=== PATIENT | female | born 1960 | race Caucasian/White ===

== ENCOUNTER 2019-12-24 10:00 | Outpatient (RCR) | payer MEDICAID, SELFPAY ==
--- NOTE | 2019-12-10 11:16 | HP.PTEVAL ---
Patient's Visit Information AUGUSTUS ARANA is a 59 year old F referred to Physical Therapy by David Ba MD with a diagnosis of vertigo BPPV adn neck pain. Date of Evaluation: 12/10/19 Physical Therapist: Raman Daigle, DPT, OCS, CSCS - Visit Plan Frequency: 2x /Week Duration: 4-6 Weeks Plan: 2x/week as needed for EG to monitor positional needs for vertigo. If needed after vertigo managed, STM, MH, c/s ROM and stretches to L UT and lev scap and ES with MH. Will need to schedule after next visit(positional and ES if needed) - Subjective Findings: Dr. Ba sent her here. She sees him for neuropathy. C/o dizzyness and saw nystagmus in doctor office. Gets dizzy and eyes flutter when lies on R side at night. Has been dizzy for 3 months. Lasts for a number of seconds. Balance is not great as she bumps into doors, does have neuropathy. Not sure why but has been there long time, not worsening. No falls. No cane or walker. 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 Sleep is not great. Neck pain keeps her up and has for a month plus. No history of neck pain regularly. No injury to neck. Hit head on roof a month and half ago or so. Neck pain is L occipital region and into scap. Gets to 8/10 at end of day. Working makes it worse. Hard to lie comfortably. Basic ADLs are getting done. Doctor gave her neck ROM as HEP and MH, slowly improving. No arm numbness or tingling. - Pain neck pain. Pain Intensity (Out of 10): 5 Pain Intensity Range: 2, 8 - Objective c/s rotation L 60 painful L and R 80 with pull on left, ext 45 with pain L. UE AROM WFL. reflexes 2/3 bi and tri. UE strength 4/5 without myotomal abnormalities. Sensation UE WNL to gross light touch. + c/s compression L. - VAT. - B hallpike shirley today and - roll test. Treated with Conrad nieto based on doctor's order. Posture is forward head and protracted elevated scapula B. Tender to touch L UT and lev scap - Balance Scores Functional Gait Assessment Score: 29 % Disability: 3.3400 CATSIB Score (Max score 120 seconds): 120 - Goals Goal 1:: abolish vertigo rollign r in bed Goal Time Frame: 2-4 Weeks Goal 3:: Neck pain 0-1/10 at manageable Goal Time Frame: 4-6 Weeks Goal 4:: I approp HEP to minimize future problems. Goal Time Frame: 4-6 Weeks Goal 5:: Pt sleep without interruption at night. Goal Time Frame: 4-6 Weeks - Rehabilitation Potential Physical Therapy Diagnosis: possible BPPV adn neck pain. Rehabilitation Potential: Good - Anticipated Interventions Patient/Client Instruction: Educate patient on: Condition, Plan of Care For the Purpose of:: To decrease pain, To increase ROM, To increase tolerance to activity/condition/position Therapeutic Exercise to Include: Strength training, Flexibilty training, Passive ROM, Active ROM, Dynamic Lumbar Stabilization Comment: posotional as needed. For the Purpose of:: To decrease pain, To improve muscle performance and motor function, To increase tolerance to activity/condition/position, To improve ability of physical actions for home/community/work/leisure Manual Therapy Techniques to Include: Mobilization, Passive ROM, Soft tissue mobilization For the Purpose of:: To decrease pain, To increase ROM TENS: Yes Thermo therapy (hot pack): Yes For the Purpose of:: To decrease pain Thank you for the opportunity to evaluate your patient. For Medicare and Medicare HMO plans, please review the plan of care and approve it. It will need to be FAXED BACK to us at [phone] for Medicare purposes. For Medicare only, by signing this I certify the plan of care. Please let me know if there are questions or concerns regarding this plan of care. Physician Signature: Date:
--- NOTE | 2019-12-24 09:59 | HP.PTDCSUM ---
HP - PT D/C Summary It has been my pleasure to treat AUGUSTUS ARANA under orders from David Ba MD, for the diagnosis of vertigo BPPV adn neck pain for a total of 3 visit(s). Discharge Date: 12/24/19 Please see the following information for a summary of their discharge status. - Subjective Subjective: Been really good. No dizzyness. Activities normal. No neck pain lately in the past week. Exercises are going well. Sees doctor office in December for neuropathic pain. - Pain neck pain. Pain Intensity (Out of 10): 5 - Overall Improvement % Improvement: 100 - Objective Objective/Function: No vertigo today. Neck ROM is full at 85 ext adn 85 B rotation s without pain or hesitation. UE AROM and strengtha re full. OVERALL VERY QUICK AND COMPLETE PROGRESS. - Goals Goal 1:: abolish vertigo rollign r in bed Goal Progress: Goal Met Goal 3:: Neck pain 0-1/10 at manageable Goal Progress: Goal Met Goal 4:: I approp HEP to minimize future problems. Goal Progress: Goal Met Goal 5:: Pt sleep without interruption at night. Goal Progress: Goal Met - Plan Plan: d/c, pt to continue neck exercises at home. - D/C Information If there are questions or concerns regarding this patient's physical therapy, please feel free to call me at [phone]. Thank you for the referral of this patient. Sincerely, Raman Daigle, DPT, OCS, CSCS
== END 2019-12-24 10:14 | disposition home or self-care (01) ==
LOC: PT 10:00
PROVIDERS: PCP Preventive Medicine Occupational Medicine; Referring Provider Psychiatry & Neurology Neurology; Visit Provider Psychiatry & Neurology Neurology
DX: H81.11 Benign paroxysmal vertigo, right ear (principal); M54.2 Cervicalgia
CPT/HCPCS: 97162; 97164; 97530

== ENCOUNTER → 2025-07-01 | Outpatient (CLI) | payer MEDICAID, SELFPAY ==
[2025-07-01 13:06] LABS: Hematocrit 44.9 % (37-47); Hemoglobin 14.8 g/dL (12.0-15.0); Immature Granulocytes Count 0.010 X10^3/uL (0.0-0.0); Mean Corp Hgb Conc 33.0 g/dL (32-36); Mean Corpuscular Volume 90.0 fL (81-99); Mean Platelet Vol. 11.1 fl (6.2-12.0); NRBC Flagged by Analyzer 0 % (0-5); Platelet Count 264 K/mm3 (150-450); RBC Distribution Width CV 13.3 % (11.6-14.6); RBC Distribution Width SD 43.9 fl (35.1-43.9); Red Blood Count 4.99 M/mm3 (4.2-5.4); White Blood Count 6.1 K/mm3 (4.4-11.0)
[2025-07-04 15:08] LABS: Ash, White <0.10 kU/L (Class 0); Black Walnut <0.10 kU/L (Class 0); Cat Hair / Dander,Stand <0.10 kU/L (Class 0); Cedar, Mountain <0.10 kU/L (Class 0); Cockroach, American <0.10 kU/L (Class 0); Dog Epithelia <0.10 kU/L (Class 0); Elm, American White <0.10 kU/L (Class 0); Mulberry, White <0.10 kU/L (Class 0); Oak, White <0.10 kU/L (Class 0); Pigweed, Rough <0.10 kU/L (Class 0); Ragweed, Short/Common <0.10 kU/L (Class 0); Sycamore, American <0.10 kU/L (Class 0)
[2025-07-05 15:07] LABS: Aspirgillus flavus Negative (Neg:<1:1); Aspirgillus fumigatus Negative (Neg:<1:1); Aspirgillus niger Negative (Neg:<1:1); Cytoplasmic Ab (C-ANCA) <1:20 titer (Neg:<1:20); Perinuclear Ab (P-ANCA) <1:20 titer (Neg:<1:20)
== END | disposition home or self-care (01) ==
LOC: LAB 11:59
PROVIDERS: Referring Provider Internal Medicine Critical Care Medicine; Visit Provider Internal Medicine Critical Care Medicine
DX: E66.9 Obesity, unspecified (principal); F17.210 Nicotine dependence, cigarettes, uncomplicated; G47.33 Obstructive sleep apnea (adult) (pediatric); J45.909 Unspecified asthma, uncomplicated
CPT/HCPCS: 36415; 82785; 85025; 86003; 86037; 86606

== ENCOUNTER → 2025-07-07 | Outpatient (CLI) | payer MEDICAID, SELFPAY ==
[2025-07-07 11:47] VITALS: PULSE 110; PULSE 113; PULSE 114; PULSE 117; PULSE 132; PULSE 138; PULSE 142; PULSE 150; O2SAT 94; O2SAT 95; O2SAT 96; O2SAT 97
--- NOTE | 2025-07-09 08:20 | PCM.PSN.6M ---
PSN 6 Minute Walk Test 6 Minute Walk Test 6 Minute Walk Test: 6 Minute Walk Test PSN:6-Minute Walk Test Start: 07/07/25 11:39 Freq: Status: Active Protocol: RESP.6MINW Document 07/07/25 11:47 OSWALDO (Rec: 07/07/25 11:55 [email or web address] [id number]) 6 Minute Walk Test Date Performed 07/07/25 Time Performed 11:15 Height 5 ft 6 in Weight: 226 lb Weight in Pounds [address]: Jake Grimes Assistive device None used: Pre-test Oxygen Delivery Room Air Method Pulse Ox (%) 96 Pulse Rate (60-100 110 H beats/min) Dyspnea Alethea Scale ( 0 0-10) Exertion Alethea Scale 6 (6-20) 1st minute Oxygen Delivery Room Air Method Pulse Ox (%) 94 Pulse Rate (60-100 114 H beats/min) 2nd minute Oxygen Delivery Room Air Method Pulse Ox (%) 94 Pulse Rate (60-100 117 H beats/min) 3rd minute Oxygen Delivery Room Air Method Pulse Ox (%) 94 Pulse Rate (60-100 132 H beats/min) 4th minute Oxygen Delivery Room Air Method Pulse Ox (%) 94 Pulse Rate (60-100 138 H beats/min) 5th minute Oxygen Delivery Room Air Method Pulse Ox (%) 95 Pulse Rate (60-100 142 H beats/min) 6th minute Oxygen Delivery Room Air Method Pulse Ox (%) 95 Pulse Rate (60-100 150 H beats/min) Dyspnea Alethea Scale ( 2 0-10) Exertion Alethea Scale 12 (6-20) Post-test Oxygen Delivery Room Air Method Pulse Ox (%) 97 Pulse Rate (60-100 113 H beats/min) Full Laps Walked 19 Partial Lap, Number 0 of Tiles Walked Total Distance 1121 Walked (ft) Interpretation Interpretation: The patient ambulated 1121 feet over the course of 6 minutes beginning on room air without assistive devices. Pretesting oxygen saturation was noted to be 96% on room air. With ambulation, the fady oxygen saturation was noted to be 94%. There was no significant exertional oxygen desaturation. Recommendations Recommendations: There is no indication for the use of supplemental oxygen at this time.
== END | disposition home or self-care (01) ==
LOC: PSN 11:02
PROVIDERS: Referring Provider Internal Medicine Critical Care Medicine; Visit Provider Internal Medicine Critical Care Medicine
DX: E66.9 Obesity, unspecified (principal); G47.33 Obstructive sleep apnea (adult) (pediatric); J45.909 Unspecified asthma, uncomplicated; F17.210 Nicotine dependence, cigarettes, uncomplicated
CPT/HCPCS: 94618

== ENCOUNTER → 2025-07-10 | Outpatient (CLI) | payer MEDICAID, SELFPAY | END | disposition home or self-care (01) | LOC: PSN 10:13 | PROVIDERS: Referring Provider Internal Medicine Critical Care Medicine; Visit Provider Internal Medicine Critical Care Medicine | DX: J45.909 Unspecified asthma, uncomplicated (principal); G47.33 Obstructive sleep apnea (adult) (pediatric); E66.9 Obesity, unspecified; F17.210 Nicotine dependence, cigarettes, uncomplicated | CPT/HCPCS: 94060; 94726; 94729 ==

== ENCOUNTER 2025-07-20 10:17 | Outpatient (CLI) | payer MEDICAID, SELFPAY ==
[2025-07-20 13:29] LABS: AST(SGOT) 19 U/L (<=31); Alanine Aminotransfer ALT/SGPT 28 U/L (<=34); Albumin, Serum 4.7 g/dL (3.4-4.8); Alkaline Phosphatase 94 U/L (35-104); Anion Gap 11 (5-15); BUN 13 mg/dL (4-19); BUN/Creat Ratio 18.1 RATIO (10-20); Calcium,Total 10.4 mg/dL (7.6-11.0); Carbon Dioxide 24.8 mmol/L (21.0-32.0); Chloride 103 mmol/L (98-108); Ferritin 77 ng/mL (22-378); Globulin 2.7 g/dL (2.2-4.2); Glucose 105 mg/dL (70-99); Potassium 4.8 mmol/L (3.3-5.1); Vitamin B12 1291 pg/mL (180-914)
[2025-07-20 14:25] LABS: Iron 93 ug/dL (50-170); Magnesium 2.5 mg/dL (1.5-2.2)
[2025-07-22 14:09] LABS: ANTINUCLEAR ANTIBODIES DIRECT Negative (Negative); Vitamin D 1,25-Dihydroxy 51.0 pg/mL (24.8-81.5)
== END 2025-07-20 23:59 | disposition home or self-care (01) ==
LOC: MTLAB 10:18
PROVIDERS: Referring Provider Psychiatry & Neurology Neurology; Visit Provider Psychiatry & Neurology Neurology
DX: G62.9 Polyneuropathy, unspecified (principal); G25.81 Restless legs syndrome; M19.90 Unspecified osteoarthritis, unspecified site
CPT/HCPCS: 86225; 36415; 80053; 82607; 82652; 82728; 82747; 83540; 83735; 83883; 84207; 84425; 84443; 85014; 86038; 86431

== ENCOUNTER → 2025-07-29 | Outpatient (CLI) | payer MEDICAID, SELFPAY ==
--- NOTE | 2025-07-29 08:26 | RAD_ITS ---
PROCEDURE: HIP, UNI W/ PELVIS 2-3 VIEWS 07/29/2025 REASON FOR EXAM: RIGHT HIP PAIN TECHNIQUE: Procedure Code: RADHP Modality: DX Procedure: HIP, UNI W/ PELVIS 2-3 VIEWS Laterality: Right. COMPARISON: None. RAD/HIP, UNI W/ Pelvis 2-3 Views IMPRESSION: Degenerative changes are seen of the visualized lower lumbar spine. Limited imaging of the left hip shows no significant abnormality. The right hip joint demonstrates no significant arthritic process or joint spac e narrowing. No evidence of femoral head osteonecrosis. No fracture or dislocation is seen. Reading Location: [id number]
--- OUTSIDE RECORDS SUMMARY | 2025-07-30 22:32 | XMS RPT_ITS | CCD ---
Author Organization [facility] [place] [facility] Care Team Providers Care Booking Manager Name Role Phone Nia Montoya Unavailable Unavailable Nia Montoya Unavailable Unavailable KYLE LOGAN DO Primary Care Physician [phone] Unavailable Primary Care Provider UnavailKyle Caba DO Primary Care Provider [phone] KYLE LOGAN DO Primary Care Physician [phone] Kyle Logan DO Primary Care Provider [phone] TONJA HANCOCK MD Attending Unavail able KYLE LOGAN DO Primary Care Unavailable KYLE LOGAN DO Attending Unavailable KYLE LOGAN DO Primary Care Unavailable GREGORY LEIGH Attending UnavailKYLE Caba DO Primary Care Unavailable Kyle Logan DO Primary Care Provider SELF Referring Unavailable KYLE LOGAN Primary Care Unavailable HENRY STEVE Attending Unavailable SELF Referring Unavailable KYLE LOGAN Primary Care Unavailable THADDEUS BURCIAGA Attending Unavailable KYLE LOGAN Primary Care Unavailable HONEY HUDSON Attending Unavailable STEFAN MALIK DO Primary Care Physician STEFAN MALIK DO Primary Care Unavailable EDUARDO DOE PA-C Attending Unavailable KYLE LOGAN DO Attending Unavailable KYLE LOGAN DO Primary Care Unavailable Dr. Jake Grimes DO Attending Provider [phone] Dr. Stefan Malik DO Primary Care Provider [phone] Dr. Stefan Malik DO Referring Provider [phone] Dr. Jake Grimes DO Referring Provider [phone] Dr. Jake Grimes DO Other Provider [phone] PORSCHE MOSS, JURGEN Hoff Attending Induva john MALIK DO, STEFAN E Primary Care Unavailable MALIK DO, STEFAN E Primary Care Unavailable PORSCHE MOSS, JURGEN Hoff Attending Unava john RESENDEZ MD, DR MOULTON Attending Unavailab le DOREEN DO, KYLE Primary Care Unavailable MALIK DO, STEFAN E Attending Unavailable MALIK DO, STEFAN E Primary Care Unavailable DOREEN DO, KYLE Primary Care Unavailable DOREEN DO, KYLE Attending Unavailable DOREEN DO, KYLE Primary Care Unavailable ROMAR DO, DR VELAZQUEZ Attending Unavailable MALIK DO, STEFAN E Primary Care Unavailable MALIK DO, STEFAN E Attending Unavailable MALIK DO, STEFAN E Primary Care Unavailable DK ZAVALA Attending Unavailab le MALIK DO, STEFAN E Primary Care Unavailable MALIK DO, STEFAN E Attending Unavailable Malik, Stefan Primary Care Unavailable Brown, Jake Referring Unavailable Brown, Jake Attending Unavailable Doreen, Kyle Referring Unavailable BaddoSelvin ordoñez Attending Unavailable Malik, Stefan Primary Care Unavailable Malik, Stefan Primary Care Unavailable Malik, Stefan Referring Unavailable Brown, Jake Attending Unavailable Brown, Jake Consulting Unavailable Brown, Jake Attending Unavailable Brown, Jake Referring Unavailable Malik, Stefan Primary Care Unavailable Brown, Jake Attending Unavailable Brown, Jake Referring Unavailable Malik, Stefan Primary Care Unavailable Malik, Stefan Primary Care Unavailable Baddour, Selvin Attending Unavailable Baddour, Selvin Referring Unavailable Malik, Stefan Primary Care Unavailable Gaviota Selvin Attending Unavailable Baddour, Selvin Referring Unavailable Brown, Jake Attending Unavailable Brown, Jake Referring Unavailable Malik, Stefan Primary Care Unavailable Allergies Allergy Classification Reported Allergen(s) Allergy Type Date of Onset Reaction(s) Facility (20 sources) caffeine; Translations: [caffeine] drug allergy 7 Tachycardia (finding), Intolerance [facility] Work Phone: (2 sources) codeine drug allergy 7 [facility] Work Phone: (2 sources) penicillin v drug allergy 7 [facility] Work Phone: (2 sources) [place] drug allergy 7 [facility] Work Phone: (20 sources) Codeine; Translations: [codeine] Drug Allergy 2 Difficulty breathing (finding), Eruption of skin (disorder), Nausea and vomiting (disorder), Cough, GI Upset, Rash [facility] Comment on above: Nausea, Rash abd pain (17 sources) Penicillins; Translations: [penicillins] Drug allergy Difficulty breathing (finding), Weal (disorder) [facility] Comment on above: Diarrhea, Rash (20 sources) Procaine; Translations: [procaine] Drug Allergy 2 Anxiety (finding), Mental Status Change [facility] Comment on above: Shakiness, severe an xiety, nausea Heart racing and anx iety (20 sources) tiotropium; Translations: [tiotropium] Drug Allergy 2 GI Upset [facility] Comment on above: became very ill (5 sources) Penicillins; Translations: [PENICILLINS] Drug Allergy 2 Shortness of Breath, Hives [facility] (14 sources) Contrast media; Translations: [iodinated radiocontrast agents] Drug allergy Nausea (finding), Tremor (finding), Difficulty breathing (finding) [facility] (3 sources) Iodinated Contrast Media; Translations: [IODINATED CONTRAST MEDIA] Drug Allergy 4 Other: See Comments [facility] (3 sources) Penicillins; Translations: [penicillins] Drug allergy Difficulty breathing (finding), Weal (disorder) [place] Comment on above: Diarrhea, Rash (2 sources) Iodine Drug Allergy 5 Other [facility] Comment on above: shaking & heart raci ng (2 sources) Penicillins Allergy to substance 5 Anaphylaxis [facility] (2 sources) Gadolinium-MRI Contrast Medium Allergy to substance 5 Other [facility] Comment on above: Shaking and heart ra steve (1 source) Penicillin; Translations: [penicillins] Drug Allergy Difficulty breathing (finding), Weal (disorder) [place] Comment on above: Diarrhea, Rash (1 source) Caffeine Drug Allergy 5 [facility] (1 source) Codeine Drug Allergy 5 [facility] (1 source) Iodine Drug Allergy 5 [facility] (1 source) Penicillins Drug allergy (disorder) 5 [facility] (1 source) Procaine Drug Allergy 5 [facility] (1 source) tiotropium Drug Allergy 5 [facility] (1 source) Gadolinium-MRI Contrast Medium Drug allergy (disorder) 5 [facility] Medications Current Medications Medication Drug Class(es) Dates Sig (Normalized) Sig (Original) acyclovir 50 mg/ml topical cream (16 sources) Herpesvirus Nucleoside Analog DNA Polymerase Inhibitor, Herpes Simplex Virus Nucleoside Analog DNA Polymerase Inhibitor, Herpes Zoster Virus Nucleoside Analog DNA Polymerase Inhibitor Start: 07-01-2025 Acyclovir (Zovirax) 5 % cream Active 1 NMA TOPICAL ONCE July 01, 2025 12:00am Start: 02-11-2025 apply 1 dose topically once Zo virax 5% topical cream Apply 1 sabrina, Topical, 5x/Day, # 5 gram(s), 3 Refill(s), Pharmacy: [facility], Cream, 167, cm, 02/11/25 10:22:00 EDT, Height, 108.3, kg, 02/11/25 10:22:00 EDT, Dosing Weight Start Date: 02/11/25 Status: Ordered Medication Dispense Status: Completed Quantity: 5.0 Unit: g Total Allowed Fills: 4 Fills Dispensed: 0 Indications: Herpesviral vesicular dermatitis; Start: 01-19-2023 Zovirax 5% top ical cream Apply 1 sabrina, Topical, 5x/Day, # 5 gram(s), 3 Refill(s), Pharmacy: [facility], Cream, 170, cm, 01/02/23 16:22:00 EST, Height, 88.5, kg, 01/02/23 16:22:00 EST, Dosing Weight Start Date: 01/19/23 Status: Ordered Quantity: 5.0 Unit: g Repeat number: 4 Start: 04-27-2022 Zovirax 5% top ical cream Apply 1 sabrina, Topical, 5x/Day, # 5 gram(s), 0 Refill(s), [id number] Cream, 168, cm, 02/08/22 11:02:00 EDT, Height, 79.8 Start Date: 04/27/22 Status: Ordered Advair Diskus 100 mcg-50 mcg/inh inhalation powder (4 sources) Start: 05-27-2025 take 1 dose by mouth twice daily Advair Diskus 100 mcg-50 mcg/inh inhalation powder Dose = 1 puff(s), Inhalation, BID, rinse mouth and throat after use, # 60 EA, 1 Refill(s), Pharmacy: [facility], 168.5, cm, 05/27/25 13:54:00 EDT, Height, kg, 05/27/25 13:54:00 EDT, Dosing Weight Start Date: 05/27/25 Status: Ordered Medication Dispense Status: Completed Quantity: 60.0 Unit: EA Total Allowed Fills: 2 Fills Dispensed: 0 Start: 04-24-2025 take 1 dose by mouth twice daily Advair Diskus 100 mcg-50 mcg/inh inhalation powder Dose = 1 puff(s), Inhalation, BID, rinse mouth and throat after use, # 60 EA, 1 Refill(s), Pharmacy: [facility], 167, cm, 04/24/25 13:58:00 EDT, Height, kg, 04/24/25 13:58:00 EDT, Dosing Weight Start Date: 04/24/25 Status: Ordered Quantity: 60.0 Unit: EA Repeat number: 2 [id number] 200 actuat albuterol 0.09 mg/actuat metered dose inhaler (13 sources) beta2-Adrenergic Agonist Start: 07-01-2025 Albut dalila Sulfate (Ventolin Hfa) 90 mcg/actuation HFA aerosol inhaler Active 2 NMA INHALATION EVERY 6 HOURS as needed July 01, 2025 12:00am Start: 06-29-2021 take 1 puff(s) by in halation every four hours as needed for wheezing Ventolin HFA MDI (90 mcg/inh) inhalation aerosol 1 puff(s), Inhalation, q4h, PRN as needed for wheezing, # 8 gram(s), 0 Refill(s) Start Date: 06/29/21 Status: Ordered Start: 07-25-2017 VENTOLIN HFA 1 08 (90 Base) MCG/ACT AERS Inhale 1 puff every 4 hours ALBUTEROL SULFATE [id number] Ruth Lee Start: 07-25-2017 VENTOLIN HFA 1 08 (90 Base) MCG/ACT AERS Inhale 1 puff every 4 hours ALBUTEROL SULFATE [id number] Ruth Lee albuterol HFA (P ROVENTIL HFA, VENTOLIN HFA) 90 mcg/actuation inhaler albuterol sulfate HFA 90 mcg/actuation aerosol inhaler Active albuterol HFA (P ROVENTIL HFA, VENTOLIN HFA) 90 mcg/actuation inhaler albuterol sulfate HFA 90 mcg/actuation aerosol inhaler 0 Active Comment on above: albuterol sulfate HF A 90 mcg/actuation aerosol inhaler albuterol 0.833 mg/ml / ipratropium bromide 0.167 mg/ml inhalation solution (8 sources) Anticholinergic, beta2-Adrenergic Agonist Start: 07-01-2025 Ipratropium-Albuterol 0.5 mg-3 mg(2.5 mg base)/3 mL solution for nebulization Active 3 mL INHALATION EVERY 6-8 HOURS as needed July 01, 2025 12:00am Start: 05-27-2025 take 1 dose by inhal ation four times daily as needed for wheezing albuterol-ipratropium 2.5 mg-0.5 mg/3 mL inhalation solution Dose = 3 mL, Inhalation, QID, PRN as needed for shortness of breath or wheezing, # 120 EA, 0 Refill(s), Pharmacy: [facility], Community acquired pneumonia Moderate persistent asthma, 168.5, cm, 05/27/25 13:54:00 EDT, Height, kg, 05/27/25 13:54:00 EDT, Dosing Weight Start Date: 05/27/25 Status: Ordered Medication Dispense Status: Completed Quantity: 120.0 Unit: EA Total Allowed Fills: 1 Fills Dispensed: 0 Indications: Pneumonia, unspecified organism; Moderate persistent asthma, uncomplicated; Start: 03-16-2025 take 1 dose by inhal ation four times daily as needed for wheezing albuterol-ipratropium 2.5 mg-0.5 mg/3 mL inhalation solution Dose = 3 mL, Inhalation, QID, PRN as needed for shortness of breath or wheezing, # 120 EA, 0 Refill(s), Pharmacy: [facility], Community acquired pneumonia Moderate persistent asthma, 169.1, cm, 03/16/25 10:25:00 EDT, Height, kg, 03/16/25 10:25:00 EDT, Dosing Weight Start Date: 03/16/25 Status: Ordered Quantity: 120.0 Unit: EA Repeat number: 1 Indications: Pneumonia, unspecified organism; Moderate persistent asthma, uncomplicated; albuterol MDI (90 mcg/inh) CFC free inhalation aerosol (19 sources) Start: 05-27-2025 take 1 puff(s) by inhalation every four hours as needed for wheezing albuterol MDI (90 mcg/inh) CFC free inhalation aerosol 1 puff(s), Inhalation, q4h, PRN as needed for wheezing, # 8.5 gram(s), 5 Refill(s), Pharmacy: [facility], Asthma, 168.5, cm, 05/27/25 13:54:00 EDT, Height, kg, 05/27/25 13:54:00 EDT, Dosing Weight Start Date: 05/27/25 Status: Ordered Medication Dispense Status: Completed Quantity: 8.5 Unit: g Total Allowed Fills: 6 Fills Dispensed: 0 Indications: Moderate persistent asthma, uncomplicated; Start: 02-11-2025 take 1 puff(s) by in halation every four hours as needed for wheezing albuterol MDI (90 mcg/inh) CFC free inhalation aerosol 1 puff(s), Inhalation, q4h, PRN as needed for wheezing, # 8.5 gram(s), 5 Refill(s), Pharmacy: [facility], Asthma, 167, cm, 02/11/25 10:22:00 EDT, Height, kg, 02/11/25 10:22:00 EDT, Dosing Weight Start Date: 02/11/25 Status: Ordered Quantity: 8.5 Unit: g Repeat number: 6 Indications: Moderate persistent asthma, uncomplicated; Start: 08-13-2024 take 1 puff(s) by in halation every four hours as needed for wheezing albuterol MDI (90 mcg/inh) CFC free inhalation aerosol 1 puff(s), Inhalation, q4h, PRN as needed for wheezing, # 8.5 gram(s), 5 Refill(s), Pharmacy: [facility], 168.6, cm, 08/13/24 9:12:00 EDT, Height, kg, 08/13/24 9:12:00 EDT, Dosing Weight Start Date: 08/13/24 Status: Ordered Quantity: 8.5 Unit: g Repeat number: 6 Start: 04-16-2024 take 1 puff(s) by in halation every four hours as needed for wheezing albuterol MDI (90 mcg/inh) CFC free inhalation aerosol 1 puff(s), Inhalation, q4h, PRN as needed for wheezing, # 8.5 gram(s), 5 Refill(s), Pharmacy: [facility], 168, cm, 02/13/24 10:57:00 EDT, Height, kg, 02/13/24 10:57:00 EDT, Dosing Weight Start Date: 04/16/24 Status: Ordered Start: 02-13-2024 take 1 puff(s) by in halation every four hours as needed for wheezing albuterol MDI (90 mcg/inh) CFC free inhalation aerosol 1 puff(s), Inhalation, q4h, PRN as needed for wheezing, # 8.5 gram(s), 1 Refill(s), Pharmacy: [facility], 168, cm, 02/13/24 10:57:00 EDT, Height, kg, 02/13/24 10:57:00 EDT, Dosing Weight Start Date: 02/13/24 Status: Ordered Start: 06-04-2023 take 1 puff(s) by in halation every four hours as needed for wheezing albuterol MDI (90 mcg/inh) CFC free inhalation aerosol 1 puff(s), Inhalation, q4h, PRN as needed for wheezing, # 8.5 gram(s), 1 Refill(s), Pharmacy: [facility], 170, cm, 03/09/23 8:57:00 EDT, Height, kg, 03/09/23 8:57:00 EDT, Dosing Weight Start Date: 06/04/23 Status: Ordered Start: 01-19-2023 take 1 puff(s) by in halation every four hours as needed for wheezing albuterol MDI (90 mcg/inh) CFC free inhalation aerosol 1 puff(s), Inhalation, q4h, PRN as needed for wheezing, # 8.5 gram(s), 1 Refill(s), Pharmacy: [facility], 170, cm, 01/02/23 16:22:00 EST, Height, kg, 01/02/23 16:22:00 EST, Dosing Weight Start Date: 01/19/23 Status: Ordered Start: 08-16-2022 take 1 puff(s) by in halation every four hours as needed for wheezing albuterol MDI (90 mcg/inh) CFC free inhalation aerosol 1 puff(s), Inhalation, q4h, PRN as needed for wheezing, # 8.5 gram(s), 1 Refill(s), Pharmacy: [facility] #[id number], 168, cm, 08/16/22 10:58:00 EDT, Height, kg, 08/16/22 10:58:00 EDT, Dosing Weight Start Date: 08/16/22 Status: Ordered Start: 02-08-2022 take 1 puff(s) by in halation every four hours as needed for wheezing albuterol MDI (90 mcg/inh) CFC free inhalation aerosol 1 puff(s), Inhalation, q4h, PRN as needed for wheezing, # 8.5 gram(s), 1 Refill(s), Pharmacy: [facility] #[id number], 168, cm, 02/08/22 11:02:00 EDT, Height, kg, 02/08/22 11:02:00 EDT, Dosing Weight Start Date: 02/08/22 Status: Ordered Start: 10-20-2020 take 1 puff(s) by in halation every four hours as needed for wheezing albuterol MDI (90 mcg/inh) CFC free inhalation aerosol 1 puff(s), Inhalation, q4h, PRN as needed for wheezing, # 8.5 gram(s), 0 Refill(s), Pharmacy: [facility] [id number] [facility], 169, cm, 10/20/20 9:18:00 EST, Height, kg, 10/20/20 9:18:00 EST, Dosing Weight Start Date: 10/20/20 Status: Ordered ALPRAZolam 0.25 mg oral tablet (20 sources) Benzodiazepine Start: 07-01-2025 take 1 tablet by mouth once daily Alprazolam 0.25 mg tablet Active 0.25 mg PO daily July 01, 2025 12:00am Start: 11-19-2024 End: 12-19-2024 Xanax 0.25 mg oral tablet Do se : 0.25 mg = 1 tab(s), Oral, qDay, PRN as needed for anxiety, # 30 tab(s), 0 Refill(s), Pharmacy: [facility], Anxiety, 167.25, cm, 11/19/24 10:49:00 EST, Height, 102.1, kg, 11/19/24 10:49:00 EST, Dosing Weight Start Date: 11/19/24 Stop Date: 12/19/24 Status: Ordered Medication Dispense Status: Completed Quantity: 30.0 Unit: tab(s) Total Allowed Fills: 1 Fills Dispensed: 0 Indications: Anxiety disorder, unspecified; Start: 02-13-2024 End: 03-14-2024 Xanax 0.25 mg oral tablet Do se : 0.25 mg = 1 tab(s), Oral, qDay, PRN as needed for anxiety, # 30 tab(s), 0 Refill(s), Pharmacy: [facility], Anxiety, 168, cm, 02/13/24 10:57:00 EDT, Height, 89.9, kg, 02/13/24 10:57:00 EDT, Dosing Weight Start Date: 02/13/24 Stop Date: 03/14/24 Status: Ordered Start: 01-19-2023 End: 02-18-2023 Xanax 0.25 mg oral tablet Do se : 0.25 mg = 1 tab(s), Oral, qDay, PRN as needed for anxiety, # 30 tab(s), 0 Refill(s), Pharmacy: [facility], Anxiety, 170, cm, 01/02/23 16:22:00 EST, Height, 88.5, kg, 01/02/23 16:22:00 EST, Dosing Weight Start Date: 01/19/23 Stop Date: 02/18/23 Status: Ordered Start: 02-08-2022 End: 03-10-2022 Xanax 0.25 mg oral tablet Do se : 0.25 mg = 1 tab(s), Oral, qDay, PRN as needed for anxiety, # 30 tab(s), 0 Refill(s), [id number] Anxiety, 168, cm, 02/08/22 11:02:00 EDT, Height, 79.8, kg, 02/08/22 11:02:00 EDT, Dosing Weight Start Date: 02/08/22 Stop Date: 03/10/22 Status: Ordered Start: 06-29-2021 End: 07-29-2021 Xanax 0.25 mg oral tablet Do se : 0.25 mg = 1 tab(s), Oral, qDay, PRN as needed for anxiety, # 30 tab(s), 0 Refill(s), [id number], Anxiety, 168, cm, 06/29/21 11:01:00 EDT, Height, 75.1, kg, 06/29/21 11:01:00 EDT, Dosing Weight Start Date: 06/29/21 Stop Date: 07/29/21 Status: Ordered Start: 07-25-2017 take 1 tablet by darian th once daily as needed ALPRAZOLAM 0.5 MG TABS One tablet by mouth daily as needed ALPRAZOLAM [id number] Ruth Lee Comment on above: alprazolam 0.25 mg t ablet TAKE 1 TABLET BY MOUTH EVERY DAY FOR 30 DAYS NEEDED FOR ANXIETY amLODIPine 5 mg oral tablet (20 sources) Dihydropyridine Calcium Channel Mary Jo Start: 08-13-2024 End: 05-22-2026 amLODIPine 5 mg oral tablet Dose : 5 mg = 1 tab(s), Oral, qDay, # 90 tab(s), 3 Refill(s), Pharmacy: [facility], 168.5, cm, 05/27/25 13:54:00 EDT, Height, kg, 05/27/25 13:54:00 EDT, Dosing Weight Start Date: 05/27/25 Stop Date: 05/22/26 Status: Ordered Medication Dispense Status: Completed Quantity: 90.0 Unit: tab(s) Total Allowed Fills: 4 Fills Dispensed: 0 Start: 02-08-2022 take 1 tablet by darian th once daily amLODIPine (NORVASC) 2.5 mg tablet amlodipine 2.5 mg tablet TAKE 1 TABLET BY MOUTH EVERY DAY 02/08/2022 Active Start: 06-29-2021 amLODIPine 2.5 mg oral tablet Dose : 2.5 mg = 1 tab(s), Oral, qDay, # 90 tab(s), 3 Refill(s), [id number], 168, cm, 06/29/21 11:01:00 EDT, Height, kg, 06/29/21 11:01:00 EDT, Dosing Weight Start Date: 06/29/21 Status: Ordered Comment on above: amlodipine 2.5 mg ta blet TAKE 1 TABLET BY MOUTH EVERY DAY aspirin 81 mg oral tablet (20 sources) Nonsteroidal Anti-inflammatory Drug Start: 07-01-2025 take 1 tablet by mouth once daily Aspirin 81 mg tablet Active 81 mg PO daily July 01, 2025 12:00am Start: 05-27-2025 aspirin 81 mg oral delayed release tablet Dose : 81 mg = 1 tab(s), Oral, qDay, # 90 tab(s), 3 Refill(s), Pharmacy: [facility], 168.5, cm, 05/27/25 13:54:00 EDT, Height, kg, 05/27/25 13:54:00 EDT, Dosing Weight Start Date: 05/27/25 Status: Ordered Medication Dispense Status: Completed Quantity: 90.0 Unit: tab(s) Total Allowed Fills: 4 Fills Dispensed: 0 Start: 02-11-2025 aspirin 81 mg oral delayed release tablet Dose : 81 mg = 1 tab(s), Oral, qDay, # 90 tab(s), 3 Refill(s), Pharmacy: [facility], 167, cm, 02/11/25 10:22:00 EDT, Height, kg, 02/11/25 10:22:00 EDT, Dosing Weight Start Date: 02/11/25 Status: Ordered Quantity: 90.0 Unit: tab(s) Repeat number: 4 Start: 07-25-2017 aspirin 81 mg oral delayed release tablet Dose : 81 mg = 1 tab(s), Oral, qDay, # 90 tab(s), 3 Refill(s), Pharmacy: [facility], 168.6, cm, 08/13/24 9:12:00 EDT, Height, kg, 08/13/24 9:12:00 EDT, Dosing Weight Start Date: 08/13/24 Status: Ordered Quantity: 90.0 Unit: tab(s) Repeat number: 4 Start: 07-25-2017 take 1 tablet by darian once daily ASPIRIN ADULT LOW STRENGTH 81 MG TBEC One tablet by mouth daily ASPIRIN [id number] Ruth Lee Comment on above: Papito Low Dose Aspir in 81 mg tablet,delayed release take 1 tablet (81MG) by oral route every day atorvastatin 80 mg oral tablet (20 sources) HMG-CoA Reductase Inhibitor Start: 02-11-2025 Lipitor 80 mg oral tablet Dose : 80 mg = 1 tab(s), Oral, qHS, # 90 tab(s), 3 Refill(s), Pharmacy: [facility], Hyperlipidemia, 167, cm, 02/11/25 10:22:00 EDT, Height, kg, 02/11/25 10:22:00 EDT, Dosing Weight Start Date: 02/11/25 Status: Ordered Medication Dispense Status: Completed Quantity: 90.0 Unit: tab(s) Total Allowed Fills: 4 Fills Dispensed: 0 Indications: Mixed hyperlipidemia; Start: 02-08-2022 Lipitor 80 mg oral tablet Dose : 80 mg = 1 tab(s), Oral, qHS, # 90 tab(s), 3 Refill(s), Pharmacy: [facility], 168.6, cm, 08/13/24 9:12:00 EDT, Height, kg, 08/13/24 9:12:00 EDT, Dosing Weight Start Date: 08/13/24 Status: Ordered Quantity: 90.0 Unit: tab(s) Repeat number: 4 Start: 10-18-2020 Lipitor 80 mg oral tablet Dose : 80 mg = 1 tab(s), Oral, qHS, # 90 tab(s), 3 Refill(s), Pharmacy: [place] [id number] [facility], 170, cm, 04/21/20 10:58:00 EDT, Height, kg, 04/21/20 10:58:00 EDT, Dosing Weight Start Date: 10/18/20 Status: Ordered Start: 07-25-2017 take 1 tablet by darian th once daily ATORVASTATIN CALCIUM 80 MG TABS One tablet by mouth daily ATORVASTATIN CALCIUM [id number] Ruth Lee Comment on above: atorvastatin 80 mg t ablet TAKE 1 TABLET BY MOUTH AT BEDTIME azithromycin 250 mg oral tablet (2 sources) Macrolide Antimicrobial Start: 12-04-19 azithromycin (ZITHROMAX) 250 mg tablet Indications: URI, acute 2 po day 1 then one po daily days 2-5 Patient should start on December 04, 2023. 6 tablet 12/04/2023 Active Comment on above: 2 po day 1 then one po daily days 2-5 Patient should start on December 04, 2023. Azithromycin 5 Day Dose Pack 250 mg oral tablet (1 source) Start: 12-13-19 End: 12-18-19 Azithromycin 5 Day Dose Pack 250 mg oral tablet Take two (2) tablets day 1-then one (1) tablet, Oral, Daily, X 5 day(s), # 6 tab(s), 0 Refill(s), 12/18/24 12:45:00 PM EST, Pharmacy: [facility], 168, cm, 12/13/24 9:08:00 EST, Height, 104.2, kg, 12/13/24 9:08:00 EST, Dosing Weight Start Date: 12/13/24 Stop Date: 12/18/24 Status: Ordered Quantity: 6.0 Unit: tab(s) Repeat number: 1 Papito Low Dose 81 mg oral tablet (7 sources) Start: 08-29-20 take 1 tablet by mouth once daily Papito Low Dose 81 mg oral tablet 1 tab(s), Oral, Daily, 0 Refill(s) Start Date: 08/29/16 Status: Ordered betamethasone 0.5 mg/ml topical cream (2 sources) Corticosteroid Start: 07-01-20 25 Betamethasone Dipropionate 0.05 % cream Active 1 NMA TOPICAL TWICE A DAY as needed July 01, 2025 12:00am biotin 1 mg oral tablet (16 sources) Start: 02-07-20 Biotin 1 mg tab Dose : 1,000 mcg = 1 tab(s), Oral, qDay, # 30 tab(s), 0 Refill(s) 02/06/2018 Active Start: 07-25-2017 take 1 tablet by darian th once daily BIOTIN 10 MG TABS One tablet by mouth daily BIOTIN [id number] Ruth Lee Comment on above: Dose : 1,000 mcg = 1 tab(s), Oral, qDay, # 30 tab(s), 0 Refill(s) Ca-D3-Mag Uw-Pvex-Clc-Darnell-Bor 600 mg calcium- 20 mcg-50 mg tablet (2 sources) Start: 07-01-2025 Ca-D3-Mag Cw-Ttmg-Rot-Darnell-Bor 600 mg calcium- 20 mcg-50 mg tablet Active {tbl} PO July 01, 2025 12:00am Calcium (9 sources) Phosphate Binder, Calcium Start: 07-01-2025 calcium Active PO July 01, 2025 12:00am Start: 08-13-2024 take 1 tablet by darian twice daily Calcium 600+D oral tablet tab(s), Oral, BID, 0 Refill(s) Start Date: 08/13/24 Status: Ordered Medication Dispense Status: Completed Total Allowed Fills: 1 Fills Dispensed: 0 Start: 08-13-2024 take 1 tablet by darian th twice daily Calcium 600+D oral tablet tab(s), Oral, BID, 0 Refill(s) Start Date: 08/13/24 Status: Ordered Repeat number: 1 chlorpheniramine maleate 4 mg oral tablet (1 source) Histamine-1 Receptor Antagonist Start: 01-16-2024 End: 02-15-2024 take 1 tablet by mouth every six hours as needed chlorpheniramine (ALLER-CHLOR) 4 mg tablet Indications: Acute non-recurrent frontal sinusitis Take 1 tablet by mouth every 6 hours as needed. 30 tablet 0 01/16/2024 02/15/2024 Active Comment on above: Take 1 tablet by darian th every 6 hours as needed. cholecalciferol 0.125 mg oral capsule (2 sources) Vitamin D Start: 07-01-2025 take 1 capsule by mouth once daily Cholecalciferol (Vitamin D3) 125 mcg (5,000 unit) capsule Active 125 ug PO daily July 01, 2025 12:00am cholecalciferol, vitamin D3, (VITAMIN D3 ORAL) (2 sources) take 1000 mg by mouth once daily cholecalciferol, vitamin D3, (VITAMIN D3 ORAL) Take 1,000 mg by mouth once daily. Active take 1000 mg by mouth once daily cholecalciferol, vitamin D3, (VITAMIN D3 ORAL) Take 1,000 mg by mouth once daily. 0 Active Comment on above: Take 1,000 mg by darian th once daily. clobetasol propionate 0.0005 mg/mg topical ointment (20 sources) Corticosteroid Start: 05-27-20 apply 1 dose topically twice daily clobetasol 0.05% topical ointment Apply 1 sabrina, Topical, BID, # 30 gram(s), 2 Refill(s), Pharmacy: [facility], Ointment, 168.5, cm, 05/27/25 13:54:00 EDT, Height, 107.9, kg, 05/27/25 13:54:00 EDT, Dosing Weight Start Date: 05/27/25 Status: Ordered Medication Dispense Status: Completed Quantity: 30.0 Unit: g Total Allowed Fills: 3 Fills Dispensed: 0 Start: 02-11-2025 clobetasol 0.0 5% topical ointment Apply 1 sabrina, Topical, BID, # 30 gram(s), 2 Refill(s), Pharmacy: [facility], Ointment, 167, cm, 02/11/25 10:22:00 EDT, Height, 108.3, kg, 02/11/25 10:22:00 EDT, Dosing Weight Start Date: 02/11/25 Status: Ordered Quantity: 30.0 Unit: g Repeat number: 3 Start: 08-13-2024 clobetasol 0.0 5% topical ointment Apply 1 sabrina, Topical, BID, # 15 gram(s), 2 Refill(s), Pharmacy: [facility], Ointment, 168.6, cm, 08/13/24 9:12:00 EDT, Height, 96.3, kg, 08/13/24 9:12:00 EDT, Dosing Weight Start Date: 08/13/24 Status: Ordered Quantity: 15.0 Unit: g Repeat number: 3 Start: 02-13-2024 clobetasol 0.0 5% topical ointment Apply 1 sabrina, Topical, BID, # 15 gram(s), 2 Refill(s), Pharmacy: [facility], Ointment, 168, cm, 02/13/24 10:57:00 EDT, Height, 89.9, kg, 02/13/24 10:57:00 EDT, Dosing Weight Start Date: 02/13/24 Status: Ordered Start: 03-20-2023 clobetasol 0.0 5% topical ointment Apply 1 sabrina, Topical, BID, # 15 gram(s), 1 Refill(s), Pharmacy: [facility], Ointment, 170, cm, 03/09/23 8:57:00 EDT, Height, 84.5, kg, 03/09/23 8:57:00 EDT, Dosing Weight Start Date: 03/20/23 Status: Ordered Start: 02-22-2023 clobetasol 0.0 5% topical ointment Apply 1 sabrina, Topical, BID, # 15 gram(s), 1 Refill(s), Pharmacy: [facility], Ointment, 174, cm, 02/07/23 10:50:00 EDT, Height, 87, kg, 02/07/23 10:50:00 EDT, Dosing Weight Start Date: 02/22/23 Status: Ordered Start: 01-19-2023 clobetasol 0.0 5% topical ointment Apply 1 sabrina, Topical, BID, # 15 gram(s), 0 Refill(s), Pharmacy: [facility], Ointment, 170, cm, 01/02/23 16:22:00 EST, Height, 88.5, kg, 01/02/23 16:22:00 EST, Dosing Weight Start Date: 01/19/23 Status: Ordered Start: 08-16-2022 clobetasol (TE MOVATE) 0.05 % ointment 08/16/2022 Active Start: 08-16-2022 clobetasol 0.0 5% topical ointment Apply 1 sabrina, Topical, BID, # 15 gram(s), 0 Refill(s), Pharmacy: [facility]/pharmacy #[id number], Ointment, 168, cm, 08/16/22 10:58:00 EDT, Height, 80.8, kg, 08/16/22 10:58:00 EDT, Dosing Weight Start Date: 08/16/22 Status: Ordered Start: 08-29-2021 clobetasol 0.0 5% topical ointment Apply 1 sabrina, Topical, BID, # 15 gram(s), 3 Refill(s), Pharmacy: [facility]/pharmacy #[id number], Ointment, 168, cm, 06/29/21 11:01:00 EDT, Height, 75.1, kg, 06/29/21 11:01:00 EDT, Dosing Weight Start Date: 08/29/21 Status: Ordered Start: 08-29-2021 clobetasol 0.0 5% topical ointment Apply 1 sabrina, Topical, BID, # 15 gram(s), 3 Refill(s), Pharmacy: [facility]/pharmacy #[id number], Ointment, 168, cm, 06/29/21 11:01:00 EDT, Height, 75.1, kg, 06/29/21 11:01:00 EDT, Dosing Weight Start Date: 08/29/21 Status: Ordered clobetosol propionate (2 sources) Start: 07-01-2025 clobetosol propionate Active TOPICAL July 01, 2025 12:00am x2 daily cyclobenzaprine hydrochloride 5 mg oral tablet (1 source) Muscle Relaxant Start: 11-24-2024 take 1 tablet by mouth three times daily as needed for muscle spasms cyclobenzaprine (FLEXERIL) 5 mg tablet Indications: Muscle spasm of right shoulder Take 1 tablet by mouth three times a day as needed for muscle spasm. 9 tablet 11/24/2024 Active dexamethasone 6 mg oral tablet (1 source) Corticosteroid Start: 11-17-2021 End: 12-01-2021 dexamethasone 6 mg oral tablet Dose : 6 mg = 1 tab(s), Oral, BID, X 14 day(s), # 28 tab(s), 0 Refill(s), 12/01/21 11:41:00 EST, Pharmacy: [facility]/pharmacy #[id number], 170.2, cm, 11/17/21 11:20:00 EST, Height, kg, 11/17/21 11:20:00 EST, Dosing Weight Start Date: 11/17/21 Stop Date: 12/01/21 Status: Ordered 12 hr dextromethorphan polistirex 6 mg/ml extended release suspension (3 sources) Uncompetitive K-[place]skjki-M-aspartat e Receptor Antagonist, Sigma-1 Agonist Start: 03-16-2025 End: 04-16-2025 take 1 dose by mouth every six hours as needed dextromethorphan 30 mg/5 mL oral suspension, extended release Dose : 30 mg = 5 mL, Oral, q6hr, PRN for cough, # 90 mL, 0 Refill(s), 04/16/25 1:35:00 PM EDT, Pharmacy: [facility], 169.1, cm, 03/16/25 10:25:00 EDT, Height, kg, 03/16/25 10:25:00 EDT, Dosing Weight Start Date: 03/16/25 Stop Date: 04/16/25 Status: Ordered Quantity: 90.0 Unit: mL Repeat number: 1 Start: 03-16-2025 Delsym 12 Hour Cough Relief 30 mg/5 mL oral suspension, extended release Dose : 60 mg = 10 mL, Oral, q12h, PRN as needed for cough, not to exceed 2 doses/day, # 148 mL, 0 Refill(s), Pharmacy: [facility], Cough, 169.1, cm, 03/16/25 10:25:00 EDT, Height, kg, 03/16/25 10:25:00 EDT, Dosing Weight Start Date: 03/16/25 Status: Ordered Quantity: 148.0 Unit: mL Repeat number: 1 Indications: Cough, unspecified; Start: 03-16-2025 End: 03-26-2025 take 1 dose by mouth every six hours as needed dextromethorphan 20 mg/15 mL oral syrup Dose : 30 mg = 22.5 mL, Oral, q6h, PRN as needed for cough, X 10 day(s), # 120 mL, 0 Refill(s), 03/26/25 11:05:00 AM EDT, Pharmacy: [facility], Cough, 169.1, cm, 03/16/25 10:25:00 EDT, Height, kg, 03/16/25 10:25:00 EDT, Dosing Weight Start Date: 03/16/25 Stop Date: 03/26/25 Status: Ordered Quantity: 120.0 Unit: mL Repeat number: 1 Indications: Cough, unspecified; doxycycline hyclate 100 mg oral tablet (2 sources) Tetracycline-class Drug Start: 01-16-2024 End: 01-21-2024 take 1 tablet by mouth twice daily doxycycline (VIBRA-TABS) 100 mg tablet Indications: Acute non-recurrent frontal sinusitis Take 1 tablet by mouth two times a day for 5 days. 10 tablet 0 01/16/2024 01/21/2024 Active Start: 09-19-2021 End: 09-29-2021 doxycycline hyclate 100 mg o ral tablet Dose : 100 mg = 1 tab(s), Oral, BID, X 10 day(s), # 20 tab(s), 0 Refill(s), 09/29/21 10:45:00 EST, Pharmacy: [facility]/pharmacy #[id number], 169.4, cm, 09/19/21 10:28:00 EST, Height, 75.5, kg, 09/19/21 10:28:00 EST, Dosing Weight Start Date: 09/19/21 Stop Date: 09/29/21 Status: Ordered Comment on above: Take 1 tablet by darian th two times a day for 5 days. ezetimibe 10 mg oral tablet (20 sources) Dietary Cholesterol Absorption Inhibitor Start: 02-11-2025 ezetimibe 10 mg oral tablet Dose : 10 mg = 1 tab(s), Oral, qDay, # 90 tab(s), 3 Refill(s), Pharmacy: [facility], Hyperlipidemia, 167, cm, 02/11/25 10:22:00 EDT, Height, kg, 02/11/25 10:22:00 EDT, Dosing Weight Start Date: 02/11/25 Status: Ordered Medication Dispense Status: Completed Quantity: 90.0 Unit: tab(s) Total Allowed Fills: 4 Fills Dispensed: 0 Indications: Mixed hyperlipidemia; Start: 02-08-2022 ezetimibe 10 m g oral tablet Dose : 10 mg = 1 tab(s), Oral, qDay, # 90 tab(s), 3 Refill(s), Pharmacy: [facility], Hyperlipidemia, 168.6, cm, 08/13/24 9:12:00 EDT, Height, kg, 08/13/24 9:12:00 EDT, Dosing Weight Start Date: 08/13/24 Status: Ordered Quantity: 90.0 Unit: tab(s) Repeat number: 4 Indication: Hyperlipidemia, unspecified Start: 08-29-2021 ezetimibe 10 m g oral tablet Dose : 10 mg = 1 tab(s), Oral, qDay, # 90 tab(s), 3 Refill(s), [id number], Hyperlipidemia, 168, cm, 06/29/21 11:01:00 EDT, Height, kg, 06/29/21 11:01:00 EDT, Dosing Weight Start Date: 08/29/21 Status: Ordered Comment on above: Take 10 mg by mouth once daily. fluticasone propionate 0.05 mg/actuat metered dose nasal spray (1 source) Corticosteroid Start: 022 take 1 dose nasal route once daily fluticasone proprionate NASAL 50 mcg/ spray Dose = 2 spray(s), Nostril, each, qDay, # 3 EA, 3 Refill(s), Pharmacy: [facility]/pharmacy #[id number], Allergic rhinitis, 168, cm, 02/08/22 11:02:00 EDT, Height, kg, 02/08/22 11:02:00 EDT, Dosing Weight Start Date: 02/08/22 Status: Ordered Fluticasone Propion-Salmeterol (2 sources) Corticosteroid, beta2-Adrenergic Agonist Start: 09-03-2 025 Fluticasone Propion-Salmeterol (Advair Diskus) 100-50 mcg/dose blister with device Active 1 NMA INHALATION TWICE A DAY July 01, 2025 12:00am fluticasone proprionate NASAL 50 mcg/ spray (4 sources) Start: take 1 dose nasal route once daily fluticasone proprionate NASAL 50 mcg/ spray Dose = 2 spray(s), Nostril, each, qDay, # 3 EA, 3 Refill(s), [id number], Allergic rhinitis, 168, cm, 06/29/21 11:01:00 EDT, Height, kg, 06/29/21 11:01:00 EDT, Dosing Weight Start Date: 08/12/21 Status: Ordered guaiFENesin 600 mg oral tablet (1 source) Start: End: Mucinex 600 mg oral tablet, extended release Dose : 600 mg = 1 tab(s), Oral, q12h, X 14 day(s), # 28 tab(s), 0 Refill(s), 12/01/21 11:41:00 EST, [id number], 170.2, cm, 11/17/21 11:20:00 EST, Height, kg, 11/17/21 11:20:00 EST, Dosing Weight Start Date: 11/17/21 Stop Date: 12/01/21 Status: Ordered hydroCHLOROthiazide 12.5 mg / losartan potassium 50 mg oral tablet (20 sources) Thiazide Diuretic, Angiotensin 2 Receptor Mary Jo Start: take 1 tablet by mouth once daily hydrochlorothiazid e-losartan 12.5-50 mg oral tablet Dose = 1 tab(s), Oral, qDay, 0 Refill(s) Start Date: 07/08/25 Status: Ordered Medication Dispense Status: Completed Total Allowed Fills: 1 Fills Dispensed: 0 Start: 02-11-2025 take 1 tablet by darian th once daily hydrochlorothiazide-losartan 12.5-50 mg oral tablet Dose = 1 tab(s), Oral, qDay, # 90 tab(s), 3 Refill(s), Pharmacy: [facility], Hypertension, 167, cm, 02/11/25 10:22:00 EDT, Height, kg, 02/11/25 10:22:00 EDT, Dosing Weight Start Date: 02/11/25 Status: Ordered Quantity: 90.0 Unit: tab(s) Repeat number: 4 Indications: Essential (primary) hypertension; Start: 02-08-2022 take 1 tablet by darian th once daily hydrochlorothiazide-losartan 12.5-50 mg oral tablet Dose = 1 tab(s), Oral, qDay, # 90 tab(s), 3 Refill(s), Pharmacy: [facility], 168.6, cm, 08/13/24 9:12:00 EDT, Height, kg, 08/13/24 9:12:00 EDT, Dosing Weight Start Date: 08/13/24 Status: Ordered Quantity: 90.0 Unit: tab(s) Repeat number: 4 Start: 04-18-2021 take 1 tablet by darian th once daily hydrochlorothiazide-losartan 12.5-50 mg oral tablet Dose = 1 tab(s), Oral, qDay, # 90 tab(s), 3 Refill(s), [id number], 169, cm, 10/20/20 9:18:00 EST, Height, kg, 10/20/20 9:18:00 EST, Dosing Weight Start Date: 04/18/21 Status: Ordered Start: 07-25-2017 take 1 tablet by darian th once daily LOSARTAN POTASSIUM-HCTZ 50-12.5 MG TABS One tablet by mouth daily LOSARTAN POTASSIUM-HCTZ [id number] Ruth Lee Comment on above: losartan 50 mg-hydro chlorothiazide 12.5 mg tablet TAKE 1 TABLET BY MOUTH EVERY DAY hydroCHLOROthiazide 25 mg / triamterene 37.5 mg oral tablet (1 source) Potassium-sparing Diuretic, Thiazide Diuretic Start : 02-11 take 1 tablet by mouth once daily as needed hydrochlorothi azide-triamter sendy 25 mg-37.5 mg oral tablet Dose = 1 tab(s), Oral, Daily, PRN Swelling, # 90 tab(s), 1 Refill(s), Pharmacy: [facility], Edema leg, 167, cm, 02/11/25 10:22:00 EDT, Height, kg, 02/11/25 10:22:00 EDT, Dosing Weight Start Date: 02/11/25 Status: Ordered Quantity: 90.0 Unit: tab(s) Repeat number: 2 Indications: Localized edema; ICaps AREDS 2 oral capsule (2 sources) Start : 02-12 take 1 capsule by mouth twice daily ICaps AREDS 2 oral capsule Dose = 1 cap(s), Oral, BID, # 60 cap(s), 0 Refill(s) Start Date: 02/13/24 Status: Ordered Incruse Ellipta 62.5 mcg/inh inhalation powder (19 sources) Start : 02-11 take 1 dose by inhalation once daily Incruse Ellipta 62.5 mcg/inh inhalation powder 1, Inhalation, qDay, # 3 EA, 3 Refill(s), Pharmacy: [facility], Asthma, 167, cm, 02/11/25 10:22:00 EDT, Height, kg, 02/11/25 10:22:00 EDT, Dosing Weight Start Date: 02/11/25 Status: Ordered Medication Dispense Status: Completed Quantity: 3.0 Unit: EA Total Allowed Fills: 4 Fills Dispensed: 0 Indications: Moderate persistent asthma, uncomplicated; Start: 02-11-2025 Incruse Ellipt a 62.5 mcg/inh inhalation powder 1, Inhalation, qDay, # 3 EA, 3 Refill(s), Pharmacy: [facility], Asthma, 167, cm, 02/11/25 10:22:00 EDT, Height, kg, 02/11/25 10:22:00 EDT, Dosing Weight Start Date: 02/11/25 Status: Ordered Quantity: 3.0 Unit: EA Repeat number: 4 Indications: Moderate persistent asthma, uncomplicated; Start: 08-13-2024 Incruse Ellipt a 62.5 mcg/inh inhalation powder 1, Inhalation, qDay, # 3 EA, 3 Refill(s), Pharmacy: [facility], 168.6, cm, 08/13/24 9:12:00 EDT, Height, kg, 08/13/24 9:12:00 EDT, Dosing Weight Start Date: 08/13/24 Status: Ordered Quantity: 3.0 Unit: EA Repeat number: 4 Start: 11-28-2023 Incruse Ellipt a 62.5 mcg/inh inhalation powder 1, Inhalation, qDay, # 3 EA, 3 Refill(s), Pharmacy: [facility], 167, cm, 11/28/23 16:22:00 EST, Height, kg, 11/28/23 16:22:00 EST, Dosing Weight Start Date: 11/28/23 Status: Ordered Start: 03-20-2023 Incruse Ellipt a 62.5 mcg/inh inhalation powder 1, Inhalation, qDay, # 3 EA, 3 Refill(s), Pharmacy: [facility], 170, cm, 03/09/23 8:57:00 EDT, Height, kg, 03/09/23 8:57:00 EDT, Dosing Weight Start Date: 03/20/23 Status: Ordered Start: 01-19-2023 Incruse Ellipt a 62.5 mcg/inh inhalation powder 1, Inhalation, qDay, # 3 EA, 3 Refill(s), Pharmacy: [place] [id number], 170, cm, 01/02/23 16:22:00 EST, Height, kg, 01/02/23 16:22:00 EST, Dosing Weight Start Date: 01/19/23 Status: Ordered Start: 06-27-2022 Incruse Ellipt a 62.5 mcg/inh inhalation powder 1, Inhalation, qDay, # 3 EA, 3 Refill(s), [id number], 168, cm, 02/08/22 11:02:00 EDT, Height, kg, 06/02/22 14:54:00 EDT, Dosing Weight Start Date: 06/27/22 Status: Ordered Start: 02-08-2022 Incruse Ellipt a 62.5 mcg/inh inhalation powder 1, Inhalation, qDay, # 3 EA, 3 Refill(s), [id number], 168, cm, 02/08/22 11:02:00 EDT, Height, kg, 02/08/22 11:02:00 EDT, Dosing Weight Start Date: 02/08/22 Status: Ordered Start: 06-29-2021 Incruse Ellipt a 62.5 mcg/inh inhalation powder 1, Inhalation, qDay, # 3 EA, 3 Refill(s), [id number], 168, cm, 06/29/21 11:01:00 EDT, Height, kg, 06/29/21 11:01:00 EDT, Dosing Weight Start Date: 06/29/21 Status: Ordered lidocaine 0.05 mg/mg medicated patch (9 sources) Antiarrhythmic, Amide Local Anesthetic Start: 07-01-2025 Lidocaine 5 % adhesi ve patch,medicated Active 2 NMA TOPICAL daily July 01, 2025 12:00am leave on most painful area for up to 12 hrs Start: 02-11-2025 End: 03-25-2025 lidocaine 5% topical patch A pply 1 patch(es), Topical, qDay, remove patches after 12 hours, # 14 patch(es), 2 Refill(s), Pharmacy: [place] [id number], Cervical radicular pain, 167, cm, 02/11/25 10:22:00 EDT, Height, 108.3, kg, 02/11/25 10:22:00 EDT, Dosing Weight Start Date: 02/11/25 Stop Date: 03/25/25 Status: Ordered Medication Dispense Status: Completed Quantity: 14.0 Unit: patch(es) Total Allowed Fills: 3 Fills Dispensed: 0 Indications: Radiculopathy, cervical region; Start: 12-12-2024 End: 01-09-2025 lidocaine 5% topical patch A pply 1 patch(es), Topical, qDay, # 15 patch(es), 0 Refill(s), Pharmacy: [place] [id number], 168, cm, 11/27/24 13:06:00 EST, Height, 100, kg, 11/28/24 20:13:00 EST, Dosing Weight Start Date: 12/12/24 Stop Date: 01/09/25 Status: Ordered Quantity: 15.0 Unit: patch(es) Repeat number: 1 loratadine 10 mg oral tablet (7 sources) Start: 05-27-2025 loratadine 10 mg oral tablet Dose : 10 mg = 1 tab(s), Oral, qDay, # 90 tab(s), 0 Refill(s), Pharmacy: [facility], Allergic rhinitis, 168.5, cm, 05/27/25 13:54:00 EDT, Height, kg, 05/27/25 13:54:00 EDT, Dosing Weight Start Date: 05/27/25 Status: Ordered Medication Dispense Status: Completed Quantity: 90.0 Unit: tab(s) Total Allowed Fills: 1 Fills Dispensed: 0 Indications: Allergic rhinitis, unspecified; Start: 04-07-2025 loratadine 10 mg oral tablet Dose : 10 mg = 1 tab(s), Oral, qDay, # 90 tab(s), 0 Refill(s), Pharmacy: [facility], Allergic rhinitis, 169.1, cm, 04/07/25 15:27:00 EDT, Height, kg, 04/07/25 15:10:00 EDT, Dosing Weight Start Date: 04/07/25 Status: Ordered Quantity: 90.0 Unit: tab(s) Repeat number: 1 Indications: Allergic rhinitis, unspecified; mecobalamin 1 mg sublingual tablet (2 sources) Start: 07-01-2025 Mecobalamin (Vitamin B12) 1,000 mcg tablet,disintegrating Active 1000 ug SL daily July 01, 2025 12:[address]am place tablet under tongue and allow to dissolve for at least30 secs before swallowing Melatonin (10 sources) Start: 10-20-2020 RA MELATONIN 5 MG TABLET RA MELATONIN 5 MG TABLET, 0 Refill(s), 72.5 Start Date: 10/20/20 Status: Ordered meloxicam 15 mg oral tablet (9 sources) Nonsteroidal Anti-inflammatory Drug Start: 02-11-2025 take 1 tablet by mouth once daily as needed for pain meloxicam 15 mg oral tablet TAKE 1 TABLET BY MOUTH ONCE DAILY NEEDED FOR PAIN WITH FOOD OR MILK AND FLUIDS. DO NOT TAKE ANY OTHER NSAIDS WHILE ON THIS MEDICATION Start Date: 04/07/25 Status: Ordered Repeat number: 1 Start: 10-05-2022 End: 10-19-2022 meloxicam 15 mg oral tablet Dose : 15 mg = 1 tab(s), Oral, qDay, Take with food/milk, # 14 tab(s), 0 Refill(s), [id number], 170, cm, 10/05/22 13:48:00 EST, Height Start Date: 10/05/22 Stop Date: 10/19/22 Status: Ordered methylPREDNISolone* (1 source) Corticosteroid Start: 03-03-2022 take 1 tablet by mouth once daily methylPREDNISolone* (MEDROL4 MG) 4 MG TAB.DS.PK Active 1-6 TAB PO TAPER (DAILY) March 03, 2022 8:25am Take the DAY 1 pills in evenly divided doses over the REMAINING dose times for the day. Then take as directed. metroNIDAZOLE 7.5 mg/ml topical cream (20 sources) Nitroimidazole Antimicrobial Start: 07-01-2025 Metronidazole (Metrocream) 0.75 % cream Active 1 NMA TOPICAL daily July 01, 2025 12:00am Start: 02-11-2025 apply 1 dose topical ly once daily metroNIDAZOLE 0.75% topical gel Apply 1 sabrina, Topical, qDay, # 45 gram(s), 11 Refill(s), Pharmacy: [facility], Gel, 167, cm, 02/11/25 10:22:00 EDT, Height, 108.3, kg, 02/11/25 10:22:00 EDT, Dosing Weight Start Date: 02/11/25 Status: Ordered Medication Dispense Status: Completed Quantity: 45.0 Unit: g Total Allowed Fills: 12 Fills Dispensed: 0 Indications: Rosacea, unspecified; Start: 02-13-2024 metroNIDAZOLE 0.75% topical gel Apply 1 sabrina, Topical, qDay, # 45 gram(s), 11 Refill(s), Pharmacy: [facility], Gel, 168, cm, 02/13/24 10:57:00 EDT, Height, 89.9, kg, 02/13/24 10:57:00 EDT, Dosing Weight Start Date: 02/13/24 Status: Ordered Quantity: 45.0 Unit: g Repeat number: 12 Start: 12-01-2023 metroNIDAZOLE (METROGEL) 0.75 % Topical Gel 12/01/2023 Active Start: 01-19-2023 metroNIDAZOLE 0.75% topical gel Apply 1 sabrina, Topical, qDay, # 45 gram(s), 11 Refill(s), Pharmacy: [facility], Gel, 170, cm, 01/02/23 16:22:00 EST, Height, 88.5, kg, 01/02/23 16:22:00 EST, Dosing Weight Start Date: 01/19/23 Status: Ordered Start: 04-12-2022 metroNIDAZOLE 0.75% topical gel Apply 1 sabrina, Topical, qDay, # 45 gram(s), 11 Refill(s), [id number] Gel, 168, cm, 02/08/22 11:02:00 EDT, Height, 79.8, kg, 02/08/22 11:02:00 EDT, Dosing Weight Start Date: 04/12/22 Status: Ordered Start: 02-08-2022 metroNIDAZOLE 0.75% topical gel Apply 1 sabrina, Topical, qDay, # 45 gram(s), 11 Refill(s), [id number] Gel, 168, cm, 02/08/22 11:02:00 EDT, Height, 79.8, kg, 02/08/22 11:02:00 EDT, Dosing Weight Start Date: 02/08/22 Status: Ordered Start: 08-29-2021 metroNIDAZOLE 0.75% topical gel Apply 1 sabrina, Topical, qDay, # 45 gram(s), 11 Refill(s), [id number], Gel, 168, cm, 06/29/21 11:01:00 EDT, Height, 75.1, kg, 06/29/21 11:01:00 EDT, Dosing Weight Start Date: 08/29/21 Status: Ordered Start: 07-25-2017 METROCREAM 0.7 5 % CREA Apply to face daily METRONIDAZOLE [id number] Ruth Lee Start: 07-25-2017 METROCREAM 0.7 5 % CREA Apply to face daily METRONIDAZOLE [id number] Ruth Lee minocycline 100 mg oral capsule (20 sources) Tetracycline-class Drug Start: 04-18-2021 minocy farr 100 mg oral capsule Dose : 100 mg = 1 cap(s), Oral, qDay, # 90 cap(s), 3 Refill(s), Pharmacy: [facility], 168.6, cm, 08/13/24 9:12:00 EDT, Height, 96.3, kg, 08/13/24 9:12:00 EDT, Dosing Weight Start Date: 08/13/24 Status: Ordered Medication Dispense Status: Completed Quantity: 90.0 Unit: cap(s) Total Allowed Fills: 4 Fills Dispensed: 0 Start: 07-25-2017 take 1 tablet by darian th once daily MINOCYCLINE HCL 100 MG CAPS One tablet by mouth daily MINOCYCLINE HCL [id number] Ruth Lee Comment on above: minocycline 100 mg c apsule TAKE 1 CAPSULE BY MOUTH EVERY DAY Nebulizer (Compressor) (6 sources) Start: 03-16-2025 Nebulizer (Compressor) See Instructions, Standard jet nebulizer with compressor, mouthpiece, tubing., # 1 EA, 0 Refill(s), Community acquired pneumonia Moderate persistent asthma Start Date: 03/16/25 Status: Ordered Medication Dispense Status: Completed Quantity: 1.0 Unit: EA Total Allowed Fills: 1 Fills Dispensed: 0 Indications: Pneumonia, unspecified organism; Moderate persistent asthma, uncomplicated; Start: 03-16-2025 Nebulizer (Com pressor) See Instructions, Standard jet nebulizer with compressor, mouthpiece, tubing., # 1 EA, 0 Refill(s), Community acquired pneumonia Moderate persistent asthma Start Date: 03/16/25 Status: Ordered Quantity: 1.0 Unit: EA Repeat number: 1 Indications: Pneumonia, unspecified organism; Moderate persistent asthma, uncomplicated; nitroglycerin (20 sources) Nitrate Vasodilator Start: 07-01-2025 nitroglyce rin (Nitrostat) Active SL July 01, 2025 12:00am Start: 05-27-2025 Nitrostat 0.4 mg sublingual tablet Dose : 0.4 mg = 1 tab(s), Sublingual, q5min, PRN for chest pain, # 25 tab(s), 0 Refill(s), Pharmacy: [id number], 168.5, cm, 05/27/25 13:54:00 EDT, Height, kg, 05/27/25 13:54:00 EDT, Dosing Weight Start Date: 05/27/25 Status: Ordered Medication Dispense Status: Completed Quantity: 25.0 Unit: tab(s) Total Allowed Fills: 1 Fills Dispensed: 0 Start: 02-11-2025 Nitrostat 0.4 mg sublingual tablet Dose : 0.4 mg = 1 tab(s), Sublingual, q5min, PRN for chest pain, # 25 tab(s), 0 Refill(s), Pharmacy: [facility], 167, cm, 02/11/25 10:22:00 EDT, Height, kg, 02/11/25 10:22:00 EDT, Dosing Weight Start Date: 02/11/25 Status: Ordered Quantity: 25.0 Unit: tab(s) Repeat number: 1 Start: 02-08-2022 Nitrostat 0.4 mg sublingual tablet Dose : 0.4 mg = 1 tab(s), Sublingual, q5min, PRN for chest pain, # 25 tab(s), 0 Refill(s), Pharmacy: [facility], 168.6, cm, 08/13/24 9:12:00 EDT, Height, kg, 08/13/24 9:12:00 EDT, Dosing Weight Start Date: 08/13/24 Status: Ordered Quantity: 25.0 Unit: tab(s) Repeat number: 1 Start: 07-25-2017 NITROSTAT 0.4 MG SUBL as needed NITROGLYCERIN [id number] Ruth Lee Comment on above: nitroglycerin 0.[address] 1 TABLET UNDER TONGUE EVERY 5 MINS, UP TO 3 DOSES NEEDED FOR CHEST PAIN Nitrostat 0.4 mg sublingual tablet (4 sources) Start: 06-29-2021 Nitrostat 0.4 mg sublingual tablet Dose : 0.4 mg = 1 tab(s), Sublingual, q5min, PRN for chest pain, # 25 tab(s), 0 Refill(s), Pharmacy: [facility]/pharmacy #[id number], 168, cm, 06/29/21 11:01:00 EDT, Height, kg, 06/29/21 11:01:00 EDT, Dosing Weight Start Date: 06/29/21 Status: Ordered nystatin 100 unt/mg / triamcinolone acetonide 0.001 mg/mg topical ointment (10 sources) Polyene Antifungal, Corticosteroid Start: 02-06-2018 nystatin-triamcinolon e 100,000 units/g-0.1% topical ointment Apply 1 sabrina, Topical, BID, 0 Refill(s) Start Date: 02/06/18 Status: Ordered Start: 02-06-2018 nystatin-triam cinolone 100,000 units/g-0.1% topical ointment Apply 1 sabrina, Topical, BID, 0 Refill(s) Start Date: 02/06/18 Status: Ordered oxyCODONE hydrochloride 5 mg oral tablet (1 source) Opioid Agonist Start: 12-04-2021 End: 12-06-2021 oxyCODONE 5 mg oral tablet ( IMMEDIATE release ) Dose : 5 mg = 1 tab(s), Oral, q6h, X 2 day(s), # 7 tab(s), 0 Refill(s), 12/06/21 21:08:00 EST, Eye pain, 83.1 Start Date: 12/04/21 Stop Date: 12/06/21 Status: Ordered pantoprazole 40 mg delayed release oral tablet (20 sources) Proton Pump Inhibitor Start: 02-11-2025 pantoprazole 40 mg oral enteric coated tablet Dose : 40 mg = 1 tab(s), Oral, BID, # 180 tab(s), 3 Refill(s), Pharmacy: [facility], Acid reflux, 167, cm, 02/11/25 10:22:00 EDT, Height, kg, 02/11/25 10:22:00 EDT, Dosing Weight Start Date: 02/11/25 Status: Ordered Medication Dispense Status: Completed Quantity: 180.0 Unit: tab(s) Total Allowed Fills: 4 Fills Dispensed: 0 Indications: Gastro-esophageal reflux disease without esophagitis; Start: 02-08-2022 pantoprazole 4 0 mg oral enteric coated tablet Dose : 40 mg = 1 tab(s), Oral, BID, # 180 tab(s), 3 Refill(s), Pharmacy: [facility], 168.6, cm, 08/13/24 9:12:00 EDT, Height, kg, 08/13/24 9:12:00 EDT, Dosing Weight Start Date: 08/13/24 Status: Ordered Quantity: 180.0 Unit: tab(s) Repeat number: 4 Start: 09-01-2021 pantoprazole 4 0 mg oral enteric coated tablet Dose : 40 mg = 1 tab(s), Oral, BID, # 180 tab(s), 3 Refill(s), [id number] 168, cm, 06/29/21 11:01:00 EDT, Height, kg, 06/29/21 11:01:00 EDT, Dosing Weight Start Date: 06/29/21 Status: Ordered Start: 07-25-2017 take 1 tablet by darian th twice daily PANTOPRAZOLE SODIUM 40 MG TBEC One tablet by mouth twice daily PANTOPRAZOLE SODIUM [id number] Ruth Lee Comment on above: pantoprazole 40 mg t ablet,delayed release rOPINIRole 0.5 mg oral tablet (11 sources) Nonergot Dopamine Agonist Start: 05-27-2025 rOPINIRole 0.5 mg oral tablet Dose : 0.5 mg = 1 tab(s), Oral, qDay, # 30 tab(s), 0 Refill(s), Pharmacy: [facility], 168.5, cm, 05/27/25 13:54:00 EDT, Height, kg, 05/27/25 13:54:00 EDT, Dosing Weight Start Date: 05/27/25 Status: Ordered Medication Dispense Status: Completed Quantity: 30.0 Unit: tab(s) Total Allowed Fills: 1 Fills Dispensed: 0 Start: 02-13-2024 rOPINIRole 0.5 mg oral tablet Dose : 0.5 mg = 1 tab(s), Oral, qDay, # 90 tab(s), 0 Refill(s) Start Date: 02/13/24 Status: Ordered Quantity: 90.0 Unit: tab(s) Repeat number: 1 sodium chlor (2 sources) Start: 07-01-2025 sodium chlor A ctive .Route July 01, 2025 12:00am 1 vial 4xdaily sodium chloride 30 mg/ml inhalation solution (6 sources) Start: 05-27-2025 sodium chlorid e 3% inhalation solution 0.12 gram(s) Dose = 4 mL, Inhalation, QID, Best to use for mucus issues, # 160 mL, 1 Refill(s), Pharmacy: [facility], Community acquired pneumonia Moderate persistent asthma, 168.5, cm, 05/27/25 13:54:00 EDT, Height, kg, 05/27/25 13:54:00 EDT, Dosing Weight Start Date: 05/27/25 Status: Ordered Medication Dispense Status: Completed Quantity: 160.0 Unit: mL Total Allowed Fills: 2 Fills Dispensed: 0 Indications: Pneumonia, unspecified organism; Moderate persistent asthma, uncomplicated; Start: 03-16-2025 sodium chlorid e 3% inhalation solution 0.12 gram(s) Dose = 4 mL, Inhalation, QID, Best to use for mucus issues, # 160 mL, 1 Refill(s), Pharmacy: [facility], Community acquired pneumonia Moderate persistent asthma, 169.1, cm, 03/16/25 10:25:00 EDT, Height, kg, 03/16/25 10:25:00 EDT, Dosing Weight Start Date: 03/16/25 Status: Ordered Quantity: 160.0 Unit: mL Repeat number: 2 Indications: Pneumonia, unspecified organism; Moderate persistent asthma, uncomplicated; triamcinolone acetonide 5 mg/ml topical cream (8 sources) Corticosteroid Start: 07-01-2025 Triamcinolone Acetonide 0.5 % cream Active 1 NMA TOPICAL TWICE A DAY July 01, 2025 12:00am Start: 05-27-2025 apply 1 dose topical ly three times daily triamcinolone 0.025% topical cream Apply 1 sabrina, Topical, TID, # 80 gram(s), 1 Refill(s), Pharmacy: [facility], Cream, 168.5, cm, 05/27/25 13:54:00 EDT, Height, 107.9, kg, 05/27/25 13:54:00 EDT, Dosing Weight Start Date: 05/27/25 Status: Ordered Medication Dispense Status: Completed Quantity: 80.0 Unit: g Total Allowed Fills: 2 Fills Dispensed: 0 Start: 04-07-2025 triamcinolone 0.025% topical cream Topical, TID, 0 Refill(s), 107.2 Start Date: 04/07/25 Status: Ordered Repeat number: 1 Start: 11-27-2024 End: 12-25-2024 triamcinolone 0.5% topical c ream Apply 1 sabrina, Topical, BID, X 14 day(s), # 15 gram(s), 1 Refill(s), Pharmacy: [facility], Cream, 168, cm, 11/27/24 13:06:00 EST, Height, 103.1, kg, 11/27/24 13:06:00 EST, Dosing Weight Start Date: 11/27/24 Stop Date: 12/25/24 Status: Ordered Quantity: 15.0 Unit: g Repeat number: 2 Umeclidinium (6 sources) Anticholinergic Start: 07-01-2025 take 62.5 ug by inhalation once daily Umeclidinium (Incruse Ellipta) 62.5 mcg/actuation blister with device Active 1 NMA INHALATION daily July 01, 2025 12:00am Start: 09-18-2022 take 1 puff(s) by in halation once daily INCRUSE ELLIPTA 62.5 mcg/actuation inhaler INHALE 1 PUFF EVERY DAY 09/18/2022 Active Comment on above: INHALE 1 PUFF EVERY DAY venlafaxine (9 sources) Serotonin and Norepinephrine Reuptake Inhibitor Start: 07-01-2025 venlafaxine (Effexor XR) Active PO July 01, 2025 12:00am Start: 05-27-2025 venlafaxine 75 mg oral capsule, extended release Dose : 75 mg = 1 cap(s), Oral, qDay, # 100 cap(s), 3 Refill(s), Pharmacy: [facility], 168.5, cm, 05/27/25 13:54:00 EDT, Height, kg, 05/27/25 13:54:00 EDT, Dosing Weight Start Date: 05/27/25 Status: Ordered Medication Dispense Status: Completed Quantity: 100.0 Unit: cap(s) Total Allowed Fills: 4 Fills Dispensed: 0 Start: 02-21-2025 venlafaxine 75 mg oral capsule, extended release 0 Refill(s) Start Date: 02/21/25 Status: Ordered Repeat number: 1 Start: 05-14-2024 venlafaxine 37 .5 mg oral capsule, extended release Dose : 37.5 mg = 1 cap(s), Oral, qDay, # 90 cap(s), 0 Refill(s) Start Date: 05/14/24 Status: Ordered vit A/vit C/vit E/zinc/coppe r (ICAPS AREDS ORAL) (2 sources) vit A/vit C/vit E/zinc/copper (ICAPS AREDS ORAL) Take by mouth once daily. Take once a day Active vit A/vit C/vit E/zinc/copper (ICAPS AREDS ORAL) Take by mouth once daily. Take once a day 0 Active Comment on above: Take by mouth once d aily. Take once a day vitamin b12 1 mg oral tablet (10 sources) Vitamin B12 Start: 02-06-2018 Vitamin B12 1000 mcg oral tablet Dose : 1,000 mcg = 1 tab(s), Oral, qDay, # 30 tab(s), 0 Refill(s) Start Date: 02/06/18 Status: Ordered Start: 07-25-2017 VITAMIN B-12 T ABS Take 2500mg daily CYANOCOBALAMIN TABS [id number] Ruth Lee Start: 07-25-2017 VITAMIN B-12 T ABS Take 2500mg daily CYANOCOBALAMIN TABS [id number] Ruth Lee Comment on above: Vitamin B-12 1,000 m cg tablet take 1 by Oral route every day with food Vitamin B12 1000 mcg oral tablet (15 sources) Start: 02-11-2025 End: 03-18-2026 Vitamin B12 1000 mcg oral tablet Dose : 1,000 mcg = 1 tab(s), Oral, qDay, # 100 tab(s), 3 Refill(s), Pharmacy: [facility], Vitamin B12 deficiency, 167, cm, 02/11/25 10:22:00 EDT, Height, kg, 02/11/25 10:22:00 EDT, Dosing Weight Start Date: 02/11/25 Stop Date: 03/18/26 Status: Ordered Medication Dispense Status: Completed Quantity: 100.0 Unit: tab(s) Total Allowed Fills: 4 Fills Dispensed: 0 Indications: Deficiency of other specified B group vitamins; Start: 02-11-2025 End: 03-18-2026 Vitamin B12 1000 mcg oral ta blet Dose : 1,000 mcg = 1 tab(s), Oral, qDay, # 100 tab(s), 3 Refill(s), Pharmacy: [facility], Vitamin B12 deficiency, 167, cm, 02/11/25 10:22:00 EDT, Height, kg, 02/11/25 10:22:00 EDT, Dosing Weight Start Date: 02/11/25 Stop Date: 03/18/26 Status: Ordered Quantity: 100.0 Unit: tab(s) Repeat number: 4 Indications: Deficiency of other specified B group vitamins; Start: 08-13-2024 End: 09-17-2025 Vitamin B12 1000 mcg oral ta blet Dose : 1,000 mcg = 1 tab(s), Oral, qDay, # 100 tab(s), 3 Refill(s), Pharmacy: [facility], 168.6, cm, 08/13/24 9:12:00 EDT, Height, kg, 08/13/24 9:12:00 EDT, Dosing Weight Start Date: 08/13/24 Stop Date: 09/17/25 Status: Ordered Quantity: 100.0 Unit: tab(s) Repeat number: 4 Start: 01-10-2024 End: 02-13-2025 Vitamin B12 1000 mcg oral ta blet Dose : 1,000 mcg = 1 tab(s), Oral, qDay, # 100 tab(s), 3 Refill(s), Pharmacy: [place] [id number], 167, cm, 11/28/23 16:22:00 EST, Height, kg, 11/28/23 16:22:00 EST, Dosing Weight Start Date: 01/10/24 Stop Date: 02/13/25 Status: Ordered Start: 01-19-2023 Vitamin B12 10 00 mcg oral tablet Dose : 1,000 mcg = 1 tab(s), Oral, qDay, # 90 tab(s), 3 Refill(s), Pharmacy: [facility], 170, cm, 01/02/23 16:22:00 EST, Height Start Date: 01/19/23 Status: Ordered Start: 02-06-2018 Vitamin B12 10 00 mcg oral tablet Dose : 1,000 mcg = 1 tab(s), Oral, qDay, # 30 tab(s), 0 Refill(s) Start Date: 02/06/18 Status: Ordered Vitamin C 500 mg oral tablet (5 sources) Start: 05-27-2025 Vitamin C 500 mg oral tablet Dose : 500 mg = 1 tab(s), Oral, qDay, # 100 tab(s), 3 Refill(s), Pharmacy: [facility], 168.5, cm, 05/27/25 13:54:00 EDT, Height, kg, 05/27/25 13:54:00 EDT, Dosing Weight Start Date: 05/27/25 Status: Ordered Medication Dispense Status: Completed Quantity: 100.0 Unit: tab(s) Total Allowed Fills: 4 Fills Dispensed: 0 Start: 04-07-2025 take 1 mg by mouth once daily Vitamin C 500 mg oral tablet mg = tab(s), Oral, qDay, 0 Refill(s) Start Date: 04/07/25 Status: Ordered Repeat number: 1 Vitamin D3 1000 intl units oral capsule (7 sources) Start: 08-31-2016 Vitamin D3 100 0 intl units oral capsule Dose : 3,000 International_Unit = 3 cap(s), Oral, Daily, 0 Refill(s) Start Date: 08/31/16 Status: Ordered Vitamin D3 125 mcg (5000 intl units) oral capsule (12 sources) Start: 02-11-2025 take 1 capsule by mouth once, then take 1 capsule by mouth once daily Vitamin D3 125 mcg (5000 intl units) oral capsule Dose : 125 mcg = 1 cap(s), Oral, Daily, # 90 cap(s), 3 Refill(s), Pharmacy: [facility], Vitamin D deficiency, 167, cm, 02/11/25 10:22:00 EDT, Height, kg, 02/11/25 10:22:00 EDT, Dosing Weight Start Date: 02/11/25 Status: Ordered Medication Dispense Status: Completed Quantity: 90.0 Unit: cap(s) Total Allowed Fills: 4 Fills Dispensed: 0 Indications: Vitamin D deficiency, unspecified; Start: 02-11-2025 take 1 capsule by mo uth once, then take 1 capsule by mouth once daily Vitamin D3 125 mcg (5000 intl units) oral capsule Dose : 125 mcg = 1 cap(s), Oral, Daily, # 90 cap(s), 3 Refill(s), Pharmacy: [facility], Vitamin D deficiency, 167, cm, 02/11/25 10:22:00 EDT, Height, kg, 02/11/25 10:22:00 EDT, Dosing Weight Start Date: 02/11/25 Status: Ordered Quantity: 90.0 Unit: cap(s) Repeat number: 4 Indications: Vitamin D deficiency, unspecified; Start: 08-13-2024 Vitamin D3 125 mcg (5000 intl units) oral capsule Dose : 125 mcg = 1 cap(s), Oral, Daily, # 90 cap(s), 3 Refill(s), Pharmacy: [facility], 168.6, cm, 08/13/24 9:12:00 EDT, Height, kg, 08/13/24 9:12:00 EDT, Dosing Weight Start Date: 08/13/24 Status: Ordered Quantity: 90.0 Unit: cap(s) Repeat number: 4 Start: 11-28-2023 Vitamin D3 125 mcg (5000 intl units) oral capsule Dose : 125 mcg = 1 cap(s), Oral, Daily, # 90 cap(s), 3 Refill(s), Pharmacy: [facility], 167, cm, 11/28/23 16:22:00 EST, Height, kg, 11/28/23 16:22:00 EST, Dosing Weight Start Date: 11/28/23 Status: Ordered Start: 01-19-2023 Vitamin D3 125 mcg (5000 intl units) oral capsule Dose : 125 mcg = 1 cap(s), Oral, Daily, # 90 cap(s), 3 Refill(s), Pharmacy: [facility], 170, cm, 01/02/23 16:22:00 EST, Height Start Date: 01/19/23 Status: Ordered Zinc (2 sources) Start: 04-07-2025 Zinc 0 Refill( s) Start Date: 04/07/25 Status: Ordered Repeat number: 1 Completed/Discontinued Medications Medication Drug Class(es) Dates Sig (Normalized) Sig (Original) azelastine hydrochloride 0.137 mg/actuat metered dose nasal spray (7 sources) Histamine-1 Receptor Antagonist Start: 03-25-2025 take 2 spray(s) nasal route twice daily azelastine 137 mcg/inh (0.1%) nasal spray 274 mcg Dose = 2 spray(s), Nasal, BID, USE 2 SPRAY(S) IN EACH NOSTRIL TWICE DAILY, # 30 mL, 5 Refill(s), Pharmacy: [facility], 169.1, cm, 03/16/25 10:25:00 EDT, Height, kg, 03/16/25 10:25:00 EDT, Dosing Weight Start Date: 03/25/25 Status: Ordered Quantity: 30.0 Unit: mL Repeat number: 6 Start: 03-20-2023 azelastine 137 mcg/inh (0.1%) nasal spray Dose = 2 spray(s), Intranasal, BID, # 30 mL, 11 Refill(s), Pharmacy: [facility], Dysfunction of left eustachian tube, 170, cm, 03/09/23 8:57:00 EDT, Height, kg, 03/09/23 8:57:00 EDT, Dosing Weight Start Date: 03/20/23 Status: Ordered Quantity: 30.0 Unit: mL Repeat number: 12 Indication: Other specified disorders of Eustachian tube, left ear Start: 02-07-2023 azelastine 137 mcg/inh (0.1%) nasal spray Dose = 2 spray(s), Intranasal, BID, # 30 mL, 2 Refill(s), Dysfunction of left eustachian tube, 174, cm, 02/07/23 10:50:00 EDT, Height Start Date: 02/07/23 Status: Ordered brompheniramine maleate 0.4 mg/ml / dextromethorphan hydrobromide 2 mg/ml / pseudoephedrine hydrochloride 6 mg/ml oral solution (2 sources) alpha-Adrenergic Agonist, Uncompetitive S-inrlmv-B-aspartate Receptor Antagonist, Sigma-1 Agonist Start: 12-01-2023 End: 01-16-2024 take 10 mL by mouth four times daily as needed Itwjogssncieejz-Tczlmezfe-UW (BROMFED DM) 2-30-10 mg/5 mL syrup Indications: URI, acute Take 10 mL by mouth four times a day as needed (Cold Symptoms). 200 mL 0 12/01/2023 01/16/2024 Discontinued (Course of therapy completed) Start: 11-22-2017 take 1 mL by mouth e very six hours as needed for cough D-Methorphan Hb/P-Epd HCl/Bpm* (BROMFED DM [id number] ML) 118 ML SYRUP Active 10 ML PO EVERY 6 HOURS NEEDED as needed for COUGH CONGESTION 160 November 22, 2017 10:05am Comment on above: Take 10 mL by mouth four times a day as needed (Cold Symptoms). dicyclomine hydrochloride 20 mg oral tablet (2 sources) Anticholinergic Start: 07-25-20 take 1 tablet by mouth four times daily BENTYL 20 MG TABS One tablet by mouth four times daily DICYCLOMINE HCL [id number] Ruth Lee gabapentin 600 mg oral tablet (3 sources) Anti-epileptic Agent Start: 02-12-20 End: 04-12-20 gabapentin 600 mg oral tablet Dose : 1,200 mg = 2 tab(s), Oral, BID, # 120 tab(s), 1 Refill(s), Pharmacy: [facility], Cervical radicular pain, 167, cm, 02/11/25 10:22:00 EDT, Height, 108.3, kg, 02/11/25 10:22:00 EDT, Dosing Weight Start Date: 02/11/25 Stop Date: 04/12/25 Status: Ordered Quantity: 120.0 Unit: tab(s) Repeat number: 2 Indications: Radiculopathy, cervical region; metoprolol tartrate 50 mg oral tablet (2 sources) beta-Adrenergic Mary Jo Start: 07-25-20 take 1 tablet by mouth twice daily METOPROLOL TARTRATE 50 MG TABS One tablet by mouth twice daily METOPROLOL TARTRATE [id number] Ruth Lee Misc Medication (4 sources) Start: 10-05-20 Misc Medication See Instructions, takes 800mg of Garcircia Cambdia 2 tablet daily, 0 Refill(s), 80.8 Start Date: 10/05/22 Status: Ordered nicotine 2 mg chewing gum (3 sources) Cholinergic Nicotinic Agonist Start: 02-09-20 take 1 dose by mouth every two hours as needed Nicorette 2 mg oral transmucosal gum 2 mg Dose = 1 EA, Chewed, q2h, PRN as needed for smoking cessation, # 160 EA, 1 Refill(s), Pharmacy: [facility]/pharmacy #[id number], Tobacco dependence due to cigarettes, 168, cm, 02/08/22 11:02:00 EDT, Height Start Date: 02/08/22 Status: Ordered polyethylene glycol [id number] [id number] mg / potassium chloride 2820 mg / sodium bicarbonate 6360 mg / sodium chloride 5530 mg / sodium sulfate 13701 mg powder for oral solution (4 sources) Osmotic Laxative Start: 07-25-20 17 GOLYTELY 227.1 GM SOLR as directed PEG 3669-IIA-ZBALX-NACL -NASULF [id number] Karthik Red MD Start: 07-25-2017 GOLYTELY 227.1 GM SOLR as directed PEG 3729-HZA-UIUNX-NACL-NASULF [id number] Karthik Red MD Start: 07-25-2017 GOLYTELY 227.1 GM SOLR Take as directed PEG 4231-LEK-JUIVW-NACL-NASULF [id number] Karthik Red MD predniSONE 10 mg oral tablet (5 sources) Start: 04-24-2025 End: 05-10-2025 take 4 tablets by mouth once daily, then take 3 tablets by mouth once daily, then take 2 tablets by mouth once daily, then take 1 tablet by mouth once daily, then take 0.5 tablet by mouth once daily prednisone 10mg tab (TAPER) Taper 78-50-86-10-5 mg, Oral, Daily, Take 4 tabs daily x 5days, then 3 tabs daily x 3days, then 2 tabs daily x 3days,then 1 tab daily x 3days,then 1/2 tab daily x 4 days, # 40 tab(s), 0 Refill(s), Pharmacy: [facility], Moderate persistent asthma, 167, cm, 04/24/25 13:58:00 EDT, Height, kg, 04/24/25 13:58:00 EDT, Dosing Weight Start Date: 04/24/25 Stop Date: 05/10/25 Status: Ordered Quantity: 40.0 Unit: tab(s) Repeat number: 1 Indications: Moderate persistent asthma, uncomplicated; Start: 12-14-2024 End: 12-19-2024 predniSONE 20 mg oral tablet Dose : 40 mg = 2 tab(s), Oral, qDayM, with food or milk. Do not take any NSAIDs while on this medication. *start 12/14/2024*, X 5 day(s), # 10 tab(s), 0 Refill(s), 12/19/24 12:46:00 PM EST, Pharmacy: [facility], 168, cm, 12/13/24 9:08:00 EST, Height, kg, 12/13/24 9:08:00 EST, Dosing Weight Start Date: 12/14/24 Stop Date: 12/19/24 Status: Ordered Quantity: 10.0 Unit: tab(s) Repeat number: 1 Start: 11-24-2024 End: 11-29-2024 take 1 tablet by mouth once daily predniSONE (DELTASONE) 50 mg Indications: Muscle spasm of right shoulder Take 1 tablet by mouth once daily for 5 days. 5 tablet 11/24/2024 11/29/2024 Active Start: 02-13-2024 take 4 tablets by mo ut once daily, then take 3 tablets by mouth once daily, then take 2 tablets by mouth once daily, then take 1 tablet by mouth once daily at mealtime predniSONE 10 mg oral tablet See Instructions, Take 4 tablets p.o. daily x 2 days, then 3 tablets p.o. daily x 2 days, then 2 tablets p.o. daily x 2 days, then 1 tablet p.o. daily x 2 days. Take with food., # 20 tab(s), 0 Refill(s), Pharmacy: [facility], Greater trochanteric bursitis of left hip, 168, cm, 02/13/24 10:57:00 EDT, Height, kg, 02/13/24 10:57:00 EDT, Dosing Weight Start Date: 02/13/24 Status: Ordered pregabalin 50 mg oral capsule (1 source) Start: 02-13-2024 pregabalin 50 mg oral capsule mg = cap(s), Oral, BID, 0 Refill(s), 91.2 Start Date: 02/13/24 Status: Ordered tiZANidine 4 mg oral tablet (7 sources) Central alpha-2 Adrenergic Agonist Start: 03-11-2025 End: 04-01-2025 take 1 tablet by mouth once daily at bedtime as needed for muscle spasms tiZANidine 4 mg oral tablet Dose : 4 mg =, Oral, qHS, PRN Muscle spasm, # 21 tab(s), 0 Refill(s), Pharmacy: [facility], Herniated cervical intervertebral disc Cervical spondylosis, 170, cm, 03/11/25 9:16:00 EDT, Height, kg, 03/11/25 9:16:00 EDT, Dosing Weight Start Date: 03/11/25 Stop Date: 04/01/25 Status: Ordered Medication Dispense Status: Completed Quantity: 21.0 Unit: tab(s) Total Allowed Fills: 1 Fills Dispensed: 0 Indications: Other cervical disc displacement, unspecified cervical region; Spondylosis without myelopathy or radiculopathy, cervical region; Start: 02-27-2025 End: 03-06-2025 take 1 tablet by mouth every eight hours as needed for muscle spasms, then take 3 tablets by mouth once daily as needed for muscle spasms tiZANidine 4 mg oral tablet Dose : 4 mg =, Oral, q8h, PRN Muscle spasm, not to exceed 3 doses/day, may cause drowsiness, # 21 cap(s), 0 Refill(s), Pharmacy: [facility], Cervical pain, 168, cm, 02/21/25 9:40:00 EDT, Height, kg, 02/21/25 9:40:00 EDT, Dosing Weight Start Date: 02/27/25 Stop Date: 03/06/25 Status: Ordered Quantity: 21.0 Unit: cap(s) Repeat number: 1 Indications: Cervicalgia; Problems Active Problems Problem Classification Problem Date Documented Da te Episodic/Chronic Anxiety disorders (20 sources) Anxiety; Translations: [Panic attack] 02-06-2018 Chronic Asthma (20 sources) Asthma; Translations: [Uncomplicated moderate persistent asthma] Onset: 7 07-25-2017 Chronic Blindness and vision defects (1 source) Functional visual loss; Translations: [Unspecified visual loss] Onset: 2 Chronic Cardiac dysrhythmias (10 sources) Palpitations 04-29-2021 Episodic Chronic obstructive pulmonary disease and bronchiectasis (2 sources) Chronic obstructive lung disease; Translations: [Chronic obstructive pulmonary disease, unspecified] Onset: 7 07-25-2017 Chronic Diabetes mellitus without complication (3 sources) Prediabetes 05-27-2025 Episodic Disorders of lipid metabolism (20 sources) Hyperlipidemia; Translations: [Mixed hyperlipidemia] Onset: 7 07-25-2017 Chronic Esophageal disorders (16 sources) Gastroesophageal reflux disease 02-06-2018 Chronic Essential hypertension (20 sources) Hypertensive disorder; Translations: [Essential hypertension] Onset: 4 02-06-2018 Chronic Menopausal disorders (20 sources) 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 pt states that she s till has the pain occasionally. the pain is sharp and passes quickly. Pain does not radiate into arms, neck or jaw. No SOB with the pain. was given nitro many years ago and has never used it. States she has been told the pain is due to anxiety. Nutritional deficiencies (9 sources) Vitamin D deficiency 08-13-2024 Chronic Nutritional deficiencies (9 sources) Cobalamin deficiency 08-13-2024 Episodic Osteoarthritis (1 source) Unspecified osteoarthritis, unspecified site; Translations: [Unspecified osteoarthritis, unspecified site] Onset: 5 Chronic Other connective tissue disease (20 sources) Cramp in lower limb 04-21-2020 Episodic Other connective tissue disease (5 sources) Trochanteric bursitis 02-13-2024 Episodic Other connective tissue disease (1 source) Disorder of shoulder; Translations: [Other muscle spasm] 11-24-2024 Episodic Other connective tissue disease (1 source) Other muscle spasm; Translations: [Muscle spasm of right shoulder] Onset: 5 Episodic Other connective tissue disease (1 source) Muscle pain; Translations: [Myalgia, other site] Onset: 5 Episodic Other connective tissue disease (7 sources) Muscle spasm of cervical muscle of neck 12-10-2024 Episodic Other connective tissue disease (1 source) Pain in right foot; Translations: [Pain in right foot] Onset: 5 Episodic Other connective tissue disease (1 source) Pain in left foot; Translations: [Pain in left foot] Onset: 5 Episodic Other connective tissue disease (1 source) Cramp and spasm; Translations: [Cramp and spasm] Onset: 5 Episodic Other diseases of kidney and ureters (1 source) Renal mass 03-19-2023 Chronic Other diseases of kidney and ureters (5 sources) Complex renal cyst 02-13-2024 Episodic Other eye disorders (1 source) Pain in eye; Translations: [Ocular pain, unspecified eye] Onset: 2 Episodic Other fractures (6 sources) Fracture of spinous process of thoracic vertebra 02-11-2025 Episodic Other gastrointestinal disorders (20 sources) Irritable bowel syndrome 02-06-2018 Chronic Other hereditary and degenerative nervous system conditions (4 sources) Restless legs 04-24-2025 Chronic Other inflammatory condition of skin (20 sources) Rosacea 04-21-2020 Chronic Other lower respiratory disease (20 sources) Multiple nodules of lung 02-06-2018 Episodic Other lower respiratory disease (4 sources) Cough; Translations: [Acute cough] Episodic Other lower respiratory disease (7 sources) Nodule of lung; Translations: [Solitary pulmonary nodule] 07-01-2025 Episodic Other lower respiratory disease (1 source) Solitary pulmonary nodule; Translations: [Solitary pulmonary nodule] Onset: 5 Episodic Other nervous system disorders (2 sources) Peripheral nerve disease ; Translations: [Other disorders of peripheral nervous system] Onset: 7 07-25-2017 Chronic Other nervous system disorders (5 sources) Neuropathy 02-06-2018 Chronic Other nervous system disorders (16 sources) Disorder of the peripheral nervous system 08-16-2022 Chronic Other nervous system disorders (1 source) Polyneuropathy, unspecified; Translations: [Polyneuropathy, unspecified] Onset: 5 Chronic Other nutritional; endocrine; and metabolic disorders (12 sources) Body mass index 30+ - obesity 08-13-2024 Chronic Other nutritional; endocrine; and metabolic disorders (4 sources) Obesity; Translations: [Obesity, unspecified] 07-01-2025 Chronic Other nutritional; endocrine; and metabolic disorders (3 sources) Severe obesity 05-27-2025 Chronic Other nutritional; endocrine; and metabolic disorders (2 sources) Obesity, unspecified; Translations: [Obesity, unspecified] Onset: Chronic Other screening for suspected conditions (not mental disorders or infectious disease) (2 sources) Encounter for screening for malignant neoplasm of cervix; Translations: [Encounter for screening for malignant neoplasm of cervix] Onset: Episodic Other skin disorders (3 sources) Lichen sclerosus et atrophicus 07-08-2025 Chronic Other upper respiratory disease (20 sources) Allergic rhinitis 08-12-2021 Chronic Otitis media and related conditions (3 sources) Dysfunction of eustachian tube 02-07-2023 Episodic Residual codes; unclassified (12 sources) Sleep apnea 02-06-2018 Chronic Residual codes; unclassified (2 sources) Obstructive sleep apnea (adult) (pediatric); Translations: [Obstructive sleep apnea (adult) (pediatric)] Onset: Chronic Residual codes; unclassified (1 source) Immunization due 05-14-2024 Episodic Residual codes; unclassified (10 sources) Postmenopausal state 05-14-2024 Episodic Residual codes; unclassified (6 sources) Edema of lower extremity 02-11-2025 Episodic Rheumatoid arthritis and related disease (20 sources) Rheumatoid arthritis 02-06-2018 Chronic Spondylosis; intervertebral disc disorders; other back problems (14 sources) Cervical spondylosis; Translations: [Displacement of cervical intervertebral disc] Onset: 5 02-11-2025 Chronic Spondylosis; intervertebral disc disorders; other back problems (20 sources) Backache; Translations: [Pain in cervical spine] Onset: 5 02-06-2018 Episodic Substance-related disorders (20 sources) Smoker; Translations: [Tobacco dependence caused by cigarettes] Onset: 5 02-06-2018 Chronic Unclassified (15 sources) Obstructive sleep apnea syndrome; Translations: [Obstructive sleep apnea (adult) (pediatric)] Onset: 7 07-25-2017 Chronic Unclassified (1 source) Screening for malignant neoplasm of colon ; Translations: [Encounter for screening for malignant neoplasm of colon] Onset: 7 07-25-2017 Unclassified (12 sources) Continuous positive airway pressure ventilation treatment 02-06-2018 Unclassified (20 sources) Eye glasses, device (physical object) 02-06-2018 Unclassified (20 sources) Patient encounter status 07-09-2019 Unclassified (3 sources) Cancer cervix screening status 07-08-2025 Unclassified (2 sources) Low back pain, unspecified; Translations: [Low back pain, unspecified] Onset: 5 Viral infection (8 sources) Viral disease; Translations: [Viral infection, unspecified] Onset: 4 01-16-2024 Episodic Viral infection (5 sources) Disease caused by 2018-nCoV 06-02-2022 Past or Other Problems Problem Classification Problem Date Documented Da te Episodic/Chronic Other connective tissue disease (3 sources) Plantar fasciitis; Translations: [Calcaneal spur] Onset: 07-25-2017 07-25-2017 Episodic Other connective tissue disease (1 source) Calcaneal spur; Translations: [Calcaneal spur, unspecified foot] Onset: 07-25-2017 07-25-2017 Episodic Other skin disorders (2 sources) Epidermoid cyst of skin; Translations: [Sebaceous cyst] Onset: 07-25-2017 07-25-2017 Episodic Other upper respiratory infections (4 sources) Viral upper respiratory tract infection; Translations: [Acute upper respiratory infection, unspecified] Onset: 12-01-2023 Episodic Unclassified (2 sources) Peripheral edema; Translations: [Edema, unspecified] Onset: 07-25-2017 07-25-2017 Episodic Results Test Name Value Interpretation Reference Range Facility STONEY w/ Reflex Mult Confirmon 07-23-2025 ANTI-DNA (DS)AB TNP Normal [facility] Comment on above: Performed By: #### L 501.9520, L505.7010, L503.6550, L3100.5450, L503.0106, L501.5200, L500.4050, L503.6150, L3300.0960 #### [facility] [address] [place], [place], [address] ANTI-SS-A TNP Normal [facility] Comment on above: Performed By: #### L 501.9520, L505.7010, L503.6550, L3100.5450, L503.0106, L501.5200, L500.4050, L503.6150, L3300.0960 #### [facility] [address] [place], [id number] ANTI-SS-B TNP Normal [facility] Comment on above: Performed By: #### L 501.9520, L505.7010, L503.6550, L3100.5450, L503.0106, L501.5200, L500.4050, L503.6150, L3300.0960 #### [facility] [address] [place], [place], [id number] Vitamin D 1,25-Dihydroxyon 0 07-22-2025 VIT D 1,25 DIHY 51.0 pg/mL Normal 24.8-81.5 [facility] Comment on above: Performed By: #### L 501.9520, L505.7010, L503.6550, L3100.5450, L503.0106, L501.5200, L500.4050, L503.6150, L3300.0960 ####[facility] [address] [place], [place], [id number] Comprehensive Metabolic [facility] 07-20-2025 Albumin [Mass/Vol] 4.7 g/dL Normal 3.4-4.8 [facility] Comment on above: Performed By: #### L 501.9520, L505.7010, L503.6550, L3100.5450, L503.0106, L501.5200, L500.4050, L503.6150, L3300.0960 #### [facility] [address] [place], [id number] Albumin/Globulin [Mass ratio] 1.7 {ratio} Normal 0.9-2.4 [facility] Comment on above: Performed By: #### L 501.9520, L505.7010, L503.6550, L3100.5450, L503.0106, L501.5200, L500.4050, L503.6150, L3300.0960 #### [facility] [address] [place], [address] ALK PHOS 94 U/L Normal 35-104 [facility] Comment on above: Performed By: #### L 501.9520, L505.7010, L503.6550, L3100.5450, L503.0106, L501.5200, L500.4050, L503.6150, L3300.0960 #### [facility] [address] [place], [address] ALT [Catalytic activity/Vol] 28 U/L Normal <=34 [facility] Comment on above: Performed By: #### L 501.9520, L505.7010, L503.6550, L3100.5450, L503.0106, L501.5200, L500.4050, L503.6150, L3300.0960 #### [facility] [address] [place], [address] AST [Catalytic activity/Vol] 19 U/L Normal <=31 [facility] Comment on above: Performed By: #### L 501.9520, L505.7010, L503.6550, L3100.5450, L503.0106, L501.5200, L500.4050, L503.6150, L3300.0960 #### [facility] [address] [place], [address] Bilirubin [Mass/Vol] 0.39 mg/dL Normal 0.00-1.30 [facility] Comment on above: Performed By: #### L 501.9520, L505.7010, L503.6550, L3100.5450, L503.0106, L501.5200, L500.4050, L503.6150, L3300.0960 #### [facility] [address] [place], [address] BUN/CRE 18.1 RATIO Normal 10-20 [facility] Comment on above: Performed By: #### L 501.9520, L505.7010, L503.6550, L3100.5450, L503.0106, L501.5200, L500.4050, L503.6150, L3300.0960 #### [facility] [address] [place], [address] Calcium [Mass/Vol] 10.4 mg/dL Normal 7.6-11.0 [facility] Comment on above: Performed By: #### L 501.9520, L505.7010, L503.6550, L3100.5450, L503.0106, L501.5200, L500.4050, L503.6150, L3300.0960 #### [facility] [address] [place], [address] Chloride [Moles/Vol] 103 mmol/L Normal 98-108 [facility] Comment on above: Performed By: #### L 501.9520, L505.7010, L503.6550, L3100.5450, L503.0106, L501.5200, L500.4050, L503.6150, L3300.0960 #### [facility] [address] [place], [address] CO2 [Moles/Vol] 24.8 mmol/L Normal 21.0-32.0 [facility] Comment on above: Performed By: #### L 501.9520, L505.7010, L503.6550, L3100.5450, L503.0106, L501.5200, L500.4050, L503.6150, L3300.0960 #### [facility] [address] [place], [address] Creatinine [Mass/Vol] 0.71 mg/dL Normal 0.70-1.20 [facility] Comment on above: Performed By: #### L 501.9520, L505.7010, L503.6550, L3100.5450, L503.0106, L501.5200, L500.4050, L503.6150, L3300.0960 #### [facility] [address] [place], [address] GAP 11 Normal 5-15 [facility] Comment on above: Performed By: #### L 501.9520, L505.7010, L503.6550, L3100.5450, L503.0106, L501.5200, L500.4050, L503.6150, L3300.0960 #### [facility] [address] [place], [address] GFR/1.73 sq M.predicted among non-blacks MDRD (S/P/Bld) [Vol rate/Area] 95 mL/min/{1.73_m2} Normal >60 [facility] Comment on above: Result Comment: mL/m in/1.73m2 CKD-EPI Creatinine Equation (2020) Performed By: #### L 501.9520, L505.7010, L503.6550, L3100.5450, L503.0106, L501.5200, L500.4050, L503.6150, L3300.0960 #### [facility] [address] [place], [address] Globulin (S) [Mass/Vol] 2.7 g/dL Normal 2.2-4.2 [facility] Comment on above: Performed By: #### L 501.9520, L505.7010, L503.6550, L3100.5450, L503.0106, L501.5200, L500.4050, L503.6150, L3300.0960 #### [facility] [address] [place], [place], [id number] (179) Glucose [Mass/Vol] 105 mg/dL High 70-99 [facility] Comment on above: Performed By: #### L 501.9520, L505.7010, L503.6550, L3100.5450, L503.0106, L501.5200, L500.4050, L503.6150, L3300.0960 #### [facility] [address] [place], [address] Potassium [Moles/Vol] 4.8 mmol/L Normal 3.3-5.1 [facility] Comment on above: Performed By: #### L 501.9520, L505.7010, L503.6550, L3100.5450, L503.0106, L501.5200, L500.4050, L503.6150, L3300.0960 #### [facility] [address] [place], [address] Sodium [Moles/Vol] 139 mmol/L Normal 133-145 [facility] Comment on above: Performed By: #### L 501.9520, L505.7010, L503.6550, L3100.5450, L503.0106, L501.5200, L500.4050, L503.6150, L3300.0960 #### [facility] [address] [place], [address] T PROT 7.4 g/dL Normal 5.9-8.4 [facility] Comment on above: Performed By: #### L 501.9520, L505.7010, L503.6550, L3100.5450, L503.0106, L501.5200, L500.4050, L503.6150, L3300.0960 #### [facility] [address] [place], [address] Urea nitrogen [Mass/Vol] 13 mg/dL Normal 4-19 [facility] Comment on above: Performed By: #### L 501.9520, L505.7010, L503.6550, L3100.5450, L503.0106, L501.5200, L500.4050, L503.6150, L3300.0960 #### [facility] [address] [place], [place], [address] Ferritinon 07-20-2025 Ferritin [Mass/Vol] 77 ng/mL Normal 22-378 [facility] Comment on above: Performed By: #### L 501.9520, L505.7010, L503.6550, L3100.5450, L503.0106, L501.5200, L500.4050, L503.6150, L3300.0960 #### [facility] [address] [place], [place], [address] Ironon 07-20-2025 Iron [Mass/Vol] 93 ug/dL Normal 50-170 [facility] Comment on above: Performed By: #### L 501.9520, L505.7010, L503.6550, L3100.5450, L503.0106, L501.5200, L500.4050, L503.6150, L3300.0960 #### [facility] [address] [place], [place], [id number] Magnesiumon 07-20-2025 Magnesium [Mass/Vol] 2.5 mg/dL High 1.5-2.2 [facility] Comment on above: Performed By: #### L 501.9520, L505.7010, L503.6550, L3100.5450, L503.0106, L501.5200, L500.4050, L503.6150, L3300.0960 #### [facility] [address] [place], [place], [address] Neurology Visit Reporton Neurology Visit Report [facility] [address], [address] [place], [place] [address] OFFICE VISIT Date of Service: 07/20/25 MR#: [id number] Acct: [id number] Name: PURVI ARANA Rep #: [id number] : 1960 Provider: Dr. Selvin herndon MD Age/Sex: 65/F [place] [facility] [place] Signed HPI [facility] Chief Complaint: Establish Care Details: History: The patient is a 65-year-old right-handed woman with a past medical history of hypertension, asthma, hyperlipidemia, vitamin D deficiency. Obstructive sleep apnea (on CPAP), anxiety disorder, and rheumatoid arthritis who presents for evaluation of neuropathy. She states that around year 1999 she began to experience burning pain in the lower extremities extending from the knees to the feet. Subsequently this has progressed more proximally. She denies having numbness or weakness in the lower extremities. She has had low back pain since around 2009. Her low back pain radiates to the left hamstrings. She has right hip pain. She states that she was evaluated by a neurologist in years past and had EMG/nerve conduction studies which revealed a peripheral neuropathy (official report is presently not available). Gabapentin was initiated which was of some benefit however the medication caused decreased appetite and was then discontinued. She was subsequently placed on venlafaxine ER and this has been of benefit for her neuropathic pain. In 2023 she began to experience cramping pain in the calves at night and some nighttime leg restlessness. Ropinirole 0.5 mg nightly was initiated and this was of modest benefit for her restless leg syndrome. Tizanidine was not of benefit. She had a fall in October 2024 and sustained a T10 fracture. She had had some neck pain but presently denies having neck pain. She experiences some right hip pain. She is prescribed meloxicam. Records indicate a history of vitamin B12 deficiency. She takes an oral B12 supplement. Past Medical History: As above. There is no history of diabetes mellitus, heart disease, stroke, seizure, thyroid disease, cancer, or renal disease. Social History: She smokes tobacco. There is no history of alcohol or illicit drug use. Family History: The patient's brother had childhood seizures. There is no family history of cerebral aneurysm, stroke or neuropathy. Review of Systems: As above. The patient has not had any recent fever, rash, chest pain, shortness of breath, gastrointestinal problems or urinary problems. She has had an intentional 15 pound weight loss over the past month. She denies having depression. She has anxiety. Physical Exam: General: Well-developed, well-nourished female in no acute distress. Neuro: The patient is awake and alert and responds appropriately; speech is fluent; language function is within normal limits Cranial nerves: PERRL, 3mm bilaterally; EOMI; visual kirby are full; visual acuity is 20/25 bilaterally; face is symmetrical; tongue is midline; there are no deficits to pinprick Cerebellar system: No nystagmus or dysmetria Deep tendon reflexes: +2 at the biceps bilaterally, triceps bilaterally, and brachioradialis bilaterally and absent at the knees and ankles; plantar responses are downward bilaterally Motor: Strength 5/5 in the biceps bilaterally, abductor pollicis brevis muscles bilaterally, first dorsal interosseous muscles bilaterally, iliopsoas bilaterally, quadriceps bilaterally and foot dorsiflexors bilaterally; no drift; a mild tremor is noted in both hands when arms are extended; no rigidity is noted in the wrists Sensory: Decreased pinprick is noted in the right foot; there are no deficits to pinprick in the left foot or hands; there are no deficits to soft touch; decreased vibration is noted in the feet Gait: Slow HEENT: Normocephalic; atraumatic; tympanic membranes are clear Neck: No bruits Heart: Regular rhythm and rate Extremities: No cyanosis or edema; dorsalis pedis pulses +2 on the right; posterior tibial pulses +2 on the left Supplemental Info Cervical spine MRI (01/27/2025): Findings: Osseous structures and joints: The cervical spine is seen to C7-T1. Vertebral body height and alignment are maintained. No fracture or dislocation is evident. Bone marrow signal pattern is within normal limits. No marrow replacing osseous lesions are evident. Intervertebral disc heights and signal intensity are normal. C1-2: No significant canal or foraminal stenosis. C2-3: No significant canal or foraminal stenosis. C3-4: No significant canal or foraminal stenosis. C4-5: No significant canal or foraminal stenosis. C5-6: No significant canal or foraminal stenosis. C6-7: There is disc herniation eccentric to the right with an AP extent of about 6 mm directly impinging upon the exiting right C6 nerve root as it enters the foramen. The canal is adequately patent. C7-T1: No significant canal or foraminal st (more content not included)... Normal [facility] Rheumatoid Factoron 07-20-20 25 RHEUMATOID FAC 28.4 IU/mL High <15 [facility] Comment on above: Performed By: #### L 501.9520, L505.7010, L503.6550, L3100.5450, L503.0106, L501.5200, L500.4050, L503.6150, L3300.0960 ####[facility] [address] [place], [address] Thyroid Stim Hormone (TSH)on 07-20-2025 TSH 0.453 uIU/mL Normal 0.300-4.20 0 [facility] Comment on above: Performed By: #### L 501.9520, L505.7010, L503.6550, L3100.5450, L503.0106, L501.5200, L500.4050, L503.6150, L3300.0960 #### [facility] [address] [place], [place], [id number] Vitamin B12on 07-20-2025 Cobalamin (Vitamin B12) [Mass/Vol] 1291 pg/mL High 180-914 [facility] Comment on above: Performed By: #### L 501.9520, L505.7010, L503.6550, L3100.5450, L503.0106, L501.5200, L500.4050, L503.6150, L3300.0960 #### [facility] [address] [place], [place], [id number] MA MAMMOGRAM SCREENING BILAT ERAL W/TOMOon 07-19-2025 MA MAMMOGRAM SCREENING BILATERAL W/NICK ORIGINAL FROM: [place] [address] [address] PROCEDURE FOR: PURVI ARANA [address] [place] [address] Home: PID[id number] 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 2D standard and 3D tomosynthesis combination imaging performed through both breasts in the MLO and CC projection. Computer aided detection was utilized in the interpretation of this exam. COMPARISON: 06/04/2024, 10/04/2022, 09/07/2021 HISTORY: Breast cancer screening. FINDINGS: BREAST DENSITY: The breasts are almost entirely fatty. Benign densities and calcifications are present in both breasts. There are no significant masses or calcifications. IMPRESSION: No mammographic evidence of malignancy. Continued screening with annual mammograms is recommended. [facility] risk calculations, generated with the history provided, report this patient's 10 year risk and lifetime risk for developing breast cancer at 5.8% and 12.3%, respectively. Based on this assessment tool, if the patient's calculated lifetime risk is below 20%, then the patient is considered at average risk for developing breast cancer. If the patient's calculated lifetime risk is at or above 20%, then the patient is considered high risk for developing breast cancer and may be a candidate for supplemental breast MRI screening in addition to annual mammographic screening per the [employer]. 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 Proteinuria) CKD 2 Kidney damage with mild loss 60-89 of kidney function CKD 3a Mild to moderate loss of kidney 45-59 function CKD 3b Moderate to severe loss of 30-44 of kindey function CKD 4 Severe loss of kidney function 15-29 CKD 5 Kidney failure <15 Note: (go live 2024) the eGFR calculation was updated to the 2020 CKD-EPI creatinine equation without a race factor to calculate the eGFR results. Performed By: #### G FR, A1C, BMP #### [address] [address] A1Con 07-17-2025 Glucose [Mass/Vol] 123 mg/dL Normal [facility] Comment on above: Result Comment: Akua mated Average Glucose calculated by equation ((28.7xA1C)-46.7) Estimated average glucose (eAG) is a calculated value from Hemoglobin A1C and is patient portal representative of the average blood glucose level in the last 2-3 month period. Normal range: less than 114 mg/dL Performed By: #### G FR, A1C, BMP #### [address] [address] HbA1c (Bld) [Mass fraction] 5.9 % Normal 4.3-6.4 [facility] Comment on above: Performed By: #### G FR, A1C, BMP #### [id number] [place], [place] [address] BMPon 07-17-2025 BUN/Creatinine Ratio 14 ratio Normal 7-27 [facility] Comment on above: Performed By: #### G FR, A1C, BMP #### [id number] [place], [place] [address] Calcium [Mass/Vol] 9.6 mg/dL Normal 8.4-10.2 [facility] Comment on above: Performed By: #### G FR, A1C, BMP #### [address] [address] Chloride [Moles/Vol] 103 mmol/L Normal 98-107 [facility] Comment on above: Performed By: #### G FR, A1C, BMP #### [address] [address] CO2 [Moles/Vol] 31 mmol/L Normal 23-31 [facility] Comment on above: Performed By: #### G FR, A1C, BMP #### [address] [address] Creatinine [Mass/Vol] 0.79 mg/dL Normal 0.51-0.95 [facility] Comment on above: Performed By: #### G FR, A1C, BMP #### [address] [address] Electrolyte Balance 6.0 mEq/L Normal 4.0-15.0 [facility] Comment on above: Performed By: #### G FR, A1C, BMP #### [address] [address] Glucose [Mass/Vol] 111 mg/dL Normal 80-115 [facility] Comment on above: Performed By: #### G FR, A1C, BMP #### [address] [address] Potassium [Moles/Vol] 4.6 mmol/L Normal 3.5-5.1 [facility] Comment on above: Performed By: #### G FR, A1C, BMP #### [address] [address] Sodium [Moles/Vol] 140 mmol/L Normal 136-145 [facility] Comment on above: Performed By: #### G FR, A1C, BMP #### [address] [address] Urea nitrogen [Mass/Vol] 11 mg/dL Normal 7-18 [facility] Comment on above: Performed By: #### G FR, A1C, BMP #### [address] [place], [place] [address] LABORATORYOrdered By: SYSTEM SYSTEM on 07-17-2025 Calcium [Mass/Vol] 9.6 mg/dL Normal 8.4 - 10. 2 mg/dL AO ADM SS Chloride [Moles/Vol] 103 mmol/L Normal 98 - 10 7 mmol/L AO ADM SS CO2 [Moles/Vol] 31 mmol/L Normal 23 - 31 mmol/L AO ADM SS Creatinine [Mass/Vol] 0.79 mg/dL Normal 0.51 - 0.95 mg/dL AO ADM SS Electrolyte Balance 6.0 mEq/L Normal 4.0 - 15 .0 mEq/L AO ADM SS Estimated Glomerular Filtration Rate 83 ml/min/1.73sqm Invalid Interpretation Code AO Chemistry S Comment on above: Interpretive Data: Stages of Chronic Kidney Disease (CKD) Stage Description eGFR(ml/min/1.73 sq.m.) CKD 1 Normal kidney function or >=90 normal kindney function with possible kidney damage (ex. Proteinuria) CKD 2 Kidney damage with mild loss 60-89 of kidney function CKD 3a Mild to moderate loss of kidney 45-59 function CKD 3b Moderate to severe loss of 30-44 of kindey function CKD 4 Severe loss of kidney function 15-29 CKD 5 Kidney failure <15 Note: (go live 2024) the eGFR calculation was updated to the 2020 CKD-EPI creatinine equation without a race factor to calculate the eGFR results. Glucose [Mass/Vol] 123 mg/dL Invalid Interpretation Code AO Chemistry S Comment on above: Interpretive Data: E stimated average glucose (eAG) is a calculated value from Hemoglobin A1C and is patient portal representative of the average blood glucose level in the last 2-3 month period. Normal range: less than 114 mg/dL Glucose [Mass/Vol] 111 mg/dL Normal 80 - 115 mg/dL AO ADM SS HbA1c (Bld) [Mass fraction] 5.9 % Normal 4.3 - 6.4 % AO ADM SS Potassium [Moles/Vol] 4.6 mmol/L Normal 3.5 - 5.1 mmol/L AO ADM SS Sodium [Moles/Vol] 140 mmol/L Normal 136 - 145 mmol/L AO ADM SS Urea nitrogen [Mass/Vol] 11 mg/dL Normal 7 - 18 mg/dL AO ADM SS Urea nitrogen/Creatinine [Mass ratio] 14 ratio Normal 7 - 27 ratio AO ADM SS [facility] Cytology Reporton 2024 [facility] Cytology Report . Pathology Reports Accession: Collected Date/Time: Received Date/Time: Pathologist: [id number] 07/08/2025 11:28 EDT 07/08/2025 18:00 EDT [facility] Cytology Report SPECIMEN: Specimen Description: Liquid Prep w/ HPV Specimen: Cervical/Endocervical Screening or Diagnostic: Screening RELEVANT HISTORY: LMP: menopausal SPECIMEN ADEQUACY: SATISFACTORY FOR EVALUATION Endocervical/Transformati onal zone component present INTERPRETATION/RESULTS: NEGATIVE FOR INTRAEPITHELIAL LESION OR MALIGNANCY HIGH RISK HPV TESTING: HPV Screen Only, DANAE Probe Negative HPV Screen Only, DANAE Probe Interp Data: Molecular methodology performed on the Robot App Store System. The APTIMA HPV Screening Assay is a nucleic acid amplification test which detects fourteen high-risk HPV types (16,18,31,33,35,39,45,51, 52,56,58,59,66 and 68). Detection of high-risk HPV (types 16,18 and 45) mRNA is dependent on the number of copies present in the specimen which may be affected by collection methods, patient factors, stage of infection and the presence of interfering substances. This assay is designed to enhance existing methods for the detection of cervical disease and should be used in conjunction with clinical information from other diagnostic and screening tests. This assay is not intended for use as a screening device for women under age 30 with normal cervical history or as a substitute for regular cervical cytology screening. If the APTIMA screening assay is positive, the HPV 16 18/45 genotype assay is performed as a follow-up test and should be interpreted in conjunction with cervical cytology test results, according to current practice guidelines. As of: 07/13/25 10:52 EDT COMMENT: This Pap Test was successfully processed and evaluated with the assistance of the ClassLinkPrep Test Imaging System. Verified by Pathology report verified by [facility] Screened by: AMIE Electronically signed by Char STACK (ASCP) Sign-Out Date: 07/13/2025 10:52 Performing Lab: [facility], [address] [place] [address] Pathology Dept Pathology Reports Accession: Collected Date/Time: Received Date/Time: Pathologist: [id number] 07/08/2025 11:28 EDT 07/08/2025 18:00 EDT Disclaimer The Pap test is a screening test for cervical cancer. As evidenced by published data, it is subject to both inherent false negative and false positive results. Your patient's results should be interpreted in context with pertinent clinical history including gynecological examination. Normal [facility] HPVSCon 07-10-2025 HPV Source Cervix Normal [facility] Comment on above: Order Comment: Order placed by AP_HPV_ORDER rule from [id number] Performed By: #### G A1C FRITZ BMP #### [address] [place], [place] [address] HPV Screen Only, DANAE Probe Negative Normal Negative [facility] Comment on above: Order Comment: Order placed by AP_HPV_ORDER rule from [id number] Result Comment: Mole cular methodology performed on the Robot App Store System. The APTIMA HPV Screening Assay is a nucleic acid amplification test which detects fourteen high-risk HPV types (16,18,31,33,35,39,45,51,52,56,58,59,66 and 68). Detection of high-risk HPV (types 16,18 and 45) mRNA is dependent on the number of copies present in the specimen which may be affected by collection methods, patient factors, stage of infection and the presence of interfering substances. This assay is designed to enhance existing methods for the detection of cervical disease and should be used in conjunction with clinical information from other diagnostic and screening tests. This assay is not intended for use as a screening device for women under age 30 with normal cervical history or as a substitute for regular cervical cytology screening. If the APTIMA screening assay is positive, the HPV 16 18/45 genotype assay is performed as a follow-up test and should be interpreted in conjunction with cervical cytology test results, according to current practice guidelines. Performed By: #### G A1C LAM, ANEL #### [id number] [place], [place] [address] 6 Minute Walk Teston 025 6 Minute Walk Test [facility]/Neurology [address] [place] [address] MR#: [id number] Acct: [id number] Name: PURVI ARANA Rep #: [id number] : 1960 65 From: Jake Grimes DO Referring Dr: Jake Grimes DO Status: REG CLI Location: PSN Date: Sex: F C PSN 6 Minute Walk Test 6 Minute Walk Test 6 Minute Walk Test: 6 Minute Walk Test PSN:6-Minute Walk Test Start: 07/07/25 11:39 Freq: Status: Active Protocol: RESP.6MINW Document 07/07/25 11:47 SFENTON (Rec: 07/07/25 11:55 SFENTON [id number]) 6 Minute Walk Test Date Performed 07/07/25 Time Performed 11:15 Height 5 ft 6 in Weight: 226 lb Weight in Pounds 226.[address]: Jake Grimes Assistive device None used: Pre-test Oxygen Delivery Room Air Method Pulse Ox (%) 96 Pulse Rate (60-100 110 H beats/min) Dyspnea Alethea Scale ( 0 0-10) Exertion Alethea Scale 6 (6-20) 1st minute Oxygen Delivery Room Air Method Pulse Ox (%) 94 Pulse Rate (60-100 114 H beats/min) 2nd minute Oxygen Delivery Room Air Method Pulse Ox (%) 94 Pulse Rate (60-100 117 H beats/min) 3rd minute Oxygen Delivery Room Air Method Pulse Ox (%) 94 Pulse Rate (60-100 132 H beats/min) 4th minute Oxygen Delivery Room Air Method Pulse Ox (%) 94 Pulse Rate (60-100 138 H beats/min) 5th minute Oxygen Delivery Room Air Method Pulse Ox (%) 95 Pulse Rate (60-100 142 H beats/min) 6th minute Oxygen Delivery Room Air Method Pulse Ox (%) 95 Pulse Rate (60-100 150 H beats/min) Dyspnea Alethea Scale ( 2 0-10) Exertion Alethea Scale 12 (6-20) Post-test Oxygen Delivery Room Air Method Pulse Ox (%) 97 Pulse Rate (60-100 113 H beats/min) Full Laps Walked 19 Partial Lap, Number 0 of Tiles Walked Total Distance 1121 Walked (ft) Interpretation Interpretation: The patient ambulated 1121 feet over the course of 6 minutes beginning on room air without assistive devices. Pretesting oxygen saturation was noted to be 96% on room air. With ambulation, the fady oxygen saturation was noted to be 94%. There was no significant exertional oxygen desaturation. Recommendations Recommendations: There is no indication for the use of supplemental oxygen at this time. 07/09/25820 Date Jake Grimes DO CC: Date Dictated: 07/09/25819 Date Transcribed: 07/09/25819 Sales Operations Lead: Dr. Jake Grimes DO Signed Normal [facility] LABORATORYOrdered By: SYSTEM SYSTEM on 07-08-2025 HPV E6+E7 mRNA DANAE+probe Ql (Cvx) Negative 1 (07/08/25 11:28 AM) Normal Negative Auto Viro/Sero SS Comment on above: Interpretive Data: Itz garcia methodology performed on the Robot App Store System. The APTIMA HPV Screening Assay is a nucleic acid amplification test which detects fourteen high-risk HPV types (16,18,31,33,35,39,45,51,52,56,58,59,66 and 68). Detection of high-risk HPV (types 16,18 and 45) mRNA is dependent on the number of copies present in the specimen which may be affected by collection methods, patient factors, stage of infection and the presence of interfering substances. This assay is designed to enhance existing methods for the detection of cervical disease and should be used in conjunction with clinical information from other diagnostic and screening tests. This assay is not intended for use as a screening device for women under age 30 with normal cervical history or as a substitute for regular cervical cytology screening. If the APTIMA screening assay is positive, the HPV 16 18/45 genotype assay is performed as a follow-up test and should be interpreted in conjunction with cervical cytology test results, according to current practice guidelines. HPV Source Cervix *NA* (07/08/25 11:28 AM) Invalid Interpretation Code Auto Viro/Sero SS ANCAon 07-05-2025 Atypical pANCA <1:20 Normal Neg:<1:20 [facility] Comment on above: Result Comment: The atypical pANCA pattern has been observed in a significant percentage of patients with ulcerative colitis, primary sclerosing cholangitis and autoimmune hepatitis. Performed By: #### L 3300.1200, L3500.3600, L3200.1600, L100.0100, L5500.0700 ####[facility] [address] [place], [address] Cytoplasmic Ab <1:20 Normal Neg:<1:20 [facility] Comment on above: Performed By: #### L 3300.1200, L3500.3600, L3200.1600, L100.0100, L5500.0700 ####[facility] [address] [place], [address] Perinuclear Ab. <1:20 Normal Neg:<1:20 [facility] Comment on above: Result Comment: The presence of positive fluorescence exhibiting P-ANCA or C-ANCA patterns alone is not specific for the diagnosis of Bebe's Granulomatosis (WG) or microscopic polyangiitis. Decisions about treatment should not be based solely on ANCA IFA results. The International ANCA Group Consensus recommends follow up testing of positive sera with both MN- 3 and MPO-ANCA enzyme immunoassays. As many as 5% serum samples are positive only by EIA. Ref. AM J Clin Pathol 1999;111:507-513. Performed By: #### L 3300.1200, L3500.3600, L3200.1600, L100.0100, L5500.0700 ####[facility] [address] [place], [address] Aspergillus Antibodieson Asp. flavus Negative Normal Neg:<1:1 [facility] Comment on above: Performed By: #### L 3300.1200, L3500.3600, L3200.1600, L100.0100, L5500.0700 ####[facility] [address] [place], [address] Asp. fumigatus Negative Normal Neg:<1:1 [facility] Comment on above: Performed By: #### L 3300.1200, L3500.3600, L3200.1600, L100.0100, L5500.0700 ####[facility] [address] [place], [address] Asp. niger Negative Normal Neg:<1:1 [facility] Comment on above: Performed By: #### L 3300.1200, L3500.3600, L3200.1600, L100.0100, L5500.0700 ####[facility] [address] [place], [address] Immunoglobulin Carlos 5 IMMUNOGLOB E QN 66 IU/mL Normal 6-495 [facility] Comment on above: Result Comment: Perf ormed at: - [facility] [id number] Hot Braider: Paulo Teresa PhD, Phone: [phone] Performed at: - [facility] [id number] Hot Braider: Keke Espinosa MD, Phone: [phone] Performed By: #### L 3300.1200, L3500.3600, L3200.1600, L100.0100, L5500.0700 ####[facility] [address] [place], [address] Allergen Resp. Area 5on ALTERNARIA TEN <0.10 Normal Class 0 [facility] Comment on above: Order Comment: Reaso n for Exam: asthma Performed By: #### L 3300.1200, L3500.3600, L3200.1600, L100.0100, L5500.0700 ####[facility] [address] [place], [address] LIBRADO, WHITE <0.10 Normal Class 0 [facility] Comment on above: Order Comment: Reaso n for Exam: asthma Performed By: #### L 3300.1200, L3500.3600, L3200.1600, L100.0100, L5500.0700 ####[facility] [address] [place], [address] ASPERGILLUS FUM <0.10 Normal Class 0 [facility] Comment on above: Order Comment: Reaso n for Exam: asthma Performed By: #### L 3300.1200, L3500.3600, L3200.1600, L100.0100, L5500.0700 ####[facility] [address] [place], [address] BERMUDA GRASS <0.10 Normal Class 0 [facility] Comment on above: Order Comment: Reaso n for Exam: asthma Performed By: #### L 3300.1200, L3500.3600, L3200.1600, L100.0100, L5500.0700 ####[facility] [address] [place], [address] BIRCH <0.10 Normal Class 0 [facility] Comment on above: Order Comment: Reaso n for Exam: asthma Performed By: #### L 3300.1200, L3500.3600, L3200.1600, L100.0100, L5500.0700 ####[facility] [address] [place], [place], [phone] BLACK WALNUT <0.10 Normal Class 0 [facility] Comment on above: Order Comment: Reaso n for Exam: asthma Performed By: #### L 3300.1200, L3500.3600, L3200.1600, L100.0100, L5500.0700 ####[facility] [address] [place], [address] CAT HAIR/DANDER <0.10 Normal Class 0 [facility] Comment on above: Order Comment: Reaso n for Exam: asthma Performed By: #### L 3300.1200, L3500.3600, L3200.1600, L100.0100, L5500.0700 ####[facility] [address] [place], [address] CLADOSPOR HERB <0.10 Normal Class 0 [facility] Comment on above: Order Comment: Reaso n for Exam: asthma Performed By: #### L 3300.1200, L3500.3600, L3200.1600, L100.0100, L5500.0700 ####[facility] [address] [place], [address] COCKROACH,AMER <0.10 Normal Class 0 [facility] Comment on above: Order Comment: Reaso n for Exam: asthma Performed By: #### L 3300.1200, L3500.3600, L3200.1600, L100.0100, L5500.0700 ####[facility] [address] [place], [place], [id number] COMMENT Comment Normal . [facility] Comment on above: Order Comment: Reaso n for Exam: asthma Result Comment: Lon burton of Specific IgE Class Description of Class ----- < 0.10 0 Negative 0.10 - 0.31 0/I Equivocal/Low 0.32 - 0.55 I Low 0.56 - 1.40 II Moderate 1.41 - 3.90 III High 3.91 - 19.00 IV Very High 19.01 - 100.00 V Very High >100.00 Very High Performed By: #### L 3300.1200, L3500.3600, L3200.1600, L100.0100, L5500.0700 ####[facility] [address] [place], [place], [address] COTTONWOOD <0.10 Normal Class 0 [facility] Comment on above: Order Comment: Reaso n for Exam: asthma Performed By: #### L 3300.1200, L3500.3600, L3200.1600, L100.0100, L5500.0700 ####[facility] [address] [place], [place], [address] D FARINAE MITE <0.10 Normal Class 0 [facility] Comment on above: Order Comment: Reaso n for Exam: asthma Performed By: #### L 3300.1200, L3500.3600, L3200.1600, L100.0100, L5500.0700 ####[facility] [address] [place], [address] D PTERONYSSINUS <0.10 Normal Class 0 [facility] Comment on above: Order Comment: Reaso n for Exam: asthma Performed By: #### L 3300.1200, L3500.3600, L3200.1600, L100.0100, L5500.0700 ####[facility] [address] [place], [address] DOG EPITHELIA <0.10 Normal Class 0 [facility] Comment on above: Order Comment: Reaso n for Exam: asthma Performed By: #### L 3300.1200, L3500.3600, L3200.1600, L100.0100, L5500.0700 ####[facility] [address] [place], [address] ELM,AMER WHITE <0.10 Normal Class 0 [facility] Comment on above: Order Comment: Reaso n for Exam: asthma Performed By: #### L 3300.1200, L3500.3600, L3200.1600, L100.0100, L5500.0700 ####[facility] [address] [place], [address] IMMUNOGLOB E 69 IU/mL Normal 6-495 [facility] Comment on above: Order Comment: Reaso n for Exam: asthma Performed By: #### L 3300.1200, L3500.3600, L3200.1600, L100.0100, L5500.0700 ####[facility] [address] [place], [address] MAPLE/BOX ELDER <0.10 Normal Class 0 [facility] Comment on above: Order Comment: Reaso n for Exam: asthma Performed By: #### L 3300.1200, L3500.3600, L3200.1600, L100.0100, L5500.0700 ####[facility] [address] [place], [address] MOUNTAIN CEDAR <0.10 Normal Class 0 [facility] Comment on above: Order Comment: Reaso n for Exam: asthma Performed By: #### L 3300.1200, L3500.3600, L3200.1600, L100.0100, L5500.0700 ####[facility] [address] [place], [address] Mouse Urine <0.10 Normal Class 0 [facility] Comment on above: Order Comment: Reaso n for Exam: asthma Performed By: #### L 3300.1200, L3500.3600, L3200.1600, L100.0100, L5500.0700 ####[facility] [address] [place], [place], [phone] MULBERRY,WHITE <0.10 Normal Class 0 [facility] Comment on above: Order Comment: Reaso n for Exam: asthma Performed By: #### L 3300.1200, L3500.3600, L3200.1600, L100.0100, L5500.0700 ####[facility] [address] [place], [address] OAK, WHITE <0.10 Normal Class 0 [facility] Comment on above: Order Comment: Reaso n for Exam: asthma Performed By: #### L 3300.1200, L3500.3600, L3200.1600, L100.0100, L5500.0700 ####[facility] [address] [place], [address] PECAN <0.10 Normal Class 0 [facility] Comment on above: Order Comment: Reaso n for Exam: asthma Performed By: #### L 3300.1200, L3500.3600, L3200.1600, L100.0100, L5500.0700 ####[facility] [address] [place], [address] PEN NOTATUM <0.10 Normal Class 0 [facility] Comment on above: Order Comment: Reaso n for Exam: asthma Performed By: #### L 3300.1200, L3500.3600, L3200.1600, L100.0100, L5500.0700 ####[facility] [address] [place], [address] PIGWEED, ROUGH <0.10 Normal Class 0 [facility] Comment on above: Order Comment: Reaso n for Exam: asthma Performed By: #### L 3300.1200, L3500.3600, L3200.1600, L100.0100, L5500.0700 ####[facility] [address] [place], [address] RAGWEED SH/COM <0.10 Normal Class 0 [facility] Comment on above: Order Comment: Reaso n for Exam: asthma Performed By: #### L 3300.1200, L3500.3600, L3200.1600, L100.0100, L5500.0700 ####[facility] [address] [place], [address] KYRGYZ THISTLE <0.10 Normal Class 0 [facility] Comment on above: Order Comment: Reaso n for Exam: asthma Performed By: #### L 3300.1200, L3500.3600, L3200.1600, L100.0100, L5500.0700 ####[facility] [address] [place], [address] SHEEP SORREL <0.10 Normal Class 0 [facility] Comment on above: Order Comment: Reaso n for Exam: asthma Result Comment: Perf ormed at: BN - [facility] [address] [id number] Hot Braider: Keke Espinosa MD, Phone: [phone] Performed By: #### L 3300.1200, L3500.3600, L3200.1600, L100.0100, L5500.0700 ####[facility] [address] [place], [place], [id number] SYCAMORE, AMER <0.10 Normal Class 0 [facility] Comment on above: Order Comment: Reaso n for Exam: asthma Performed By: #### L 3300.1200, L3500.3600, L3200.1600, L100.0100, L5500.0700 ####[facility] [address] [place], [address] SAIGE GRASS <0.10 Normal Class 0 [facility] Comment on above: Order Comment: Reaso n for Exam: asthma Performed By: #### L 3300.1200, L3500.3600, L3200.1600, L100.0100, L5500.0700 ####[facility] [address] [place], [address] Absolute lymphocyte countOrd ered By: Jake Grimes on 07-01-2025 Lymphocytes Auto (Unsp spec) [#/Vol] 1.83 10*3/uL 0.83-4.51 [facility] Absolute neutrophil countOrd ered By: Jake Grimes on 07-01-2025 Neutrophils (Bld) [#/Vol] 3.7 10*3/uL 2.0-7.7 [facility] Automated lymphocyte count a s percentage of total leukocytesOrdered By: Jake Grimes on 07-01-2025 Lymphocytes/100 WBC Auto (Unsp spec) 30.1 % 19-41 [facility] Basophil percentageOrdered B y: Jake Grimes on 07-01-2025 Basophils/100 WBC (Bld) 1.0 % 0-1 [facility] CBC W/Diff, Automatedon Absolute Lymph 1.83 X10 3/uL Normal 0.83-4.51 [facility] Comment on above: Performed By: #### L 3300.1200, L3500.3600, L3200.1600, L100.0100, L5500.0700 ####[facility] [address] [place], [address] Absolute Neut 3.7 X10 3/uL Normal 2.0-7.7 [facility] Comment on above: Performed By: #### L 3300.1200, L3500.3600, L3200.1600, L100.0100, L5500.0700 ####[facility] [address] [place], [address] Basophils/100 WBC (Bld) 1.0 % Normal 0-1 [facility] Comment on above: Performed By: #### L 3300.1200, L3500.3600, L3200.1600, L100.0100, L5500.0700 ####[facility] [address] [place], [address] Eosinophils/100 WBC (Bld) 1.0 % Normal 0-5 [facility] Comment on above: Performed By: #### L 3300.1200, L3500.3600, L3200.1600, L100.0100, L5500.0700 ####[facility] [address] [place], [address] Erythrocyte distribution width (RBC) [Ratio] 13.3 % Normal 11.6-14.6 [facility] Comment on above: Performed By: #### L 3300.1200, L3500.3600, L3200.1600, L100.0100, L5500.0700 ####[facility] [address] [place], [address] Hematocrit (Bld) [Volume fraction] 44.9 % Normal 37-47 [facility] Comment on above: Performed By: #### L 3300.1200, L3500.3600, L3200.1600, L100.0100, L5500.0700 ####[facility] [address] [place], [address] Hemoglobin (Bld) [Mass/Vol] 14.8 g/dL Normal 12.0-15.0 [facility] Comment on above: Performed By: #### L 3300.1200, L3500.3600, L3200.1600, L100.0100, L5500.0700 ####[facility] [address] [place], [address] IG% 0.200 Normal 0.0-0.9 [facility] Comment on above: Result Comment: IG% - Immature Granulocytes (promyelocytes, myelocytes and metamyelocytes) > 1% indicates that a LEFT SHIFT is Present. Performed By: #### L 3300.1200, L3500.3600, L3200.1600, L100.0100, L5500.0700 ####[facility] [address] [place], [address] Lymphocytes/100 WBC (Bld) 30.1 % Normal 19-41 [facility] Comment on above: Performed By: #### L 3300.1200, L3500.3600, L3200.1600, L100.0100, L5500.0700 ####[facility] [address] [place], [address] MCH (RBC) [Entitic mass] 29.7 pg Normal 27.0-32.0 [facility] Comment on above: Performed By: #### L 3300.1200, L3500.3600, L3200.1600, L100.0100, L5500.0700 ####[facility] [address] [place], [address] MCHC (RBC) [Mass/Vol] 33.0 g/dL Normal 32-36 [facility] Comment on above: Performed By: #### L 3300.1200, L3500.3600, L3200.1600, L100.0100, L5500.0700 ####[facility] [address] [place], [address] MCV (RBC) [Entitic vol] 90.0 fL Normal 81-99 [facility] Comment on above: Performed By: #### L 3300.1200, L3500.3600, L3200.1600, L100.0100, L5500.0700 ####[facility] [address] [place], [address] Monocytes/100 WBC (Bld) 6.6 % Normal 0-10 [facility] Comment on above: Performed By: #### L 3300.1200, L3500.3600, L3200.1600, L100.0100, L5500.0700 ####[facility] [address] [place], [address] Neutrophils/100 WBC (Bld) 61.1 % Normal 47-70 [facility] Comment on above: Performed By: #### L 3300.1200, L3500.3600, L3200.1600, L100.0100, L5500.0700 ####[facility] [address] [place], [address] Nucleated RBC (Bld) [#/Vol] 0 10*3/uL Normal 0-5 [facility] Comment on above: Performed By: #### L 3300.1200, L3500.3600, L3200.1600, L100.0100, L5500.0700 ####[facility] [address] [place], [address] Platelet mean volume (Bld) [Entitic vol] 11.1 fL Normal 6.2-12.0 [facility] Comment on above: Performed By: #### L 3300.1200, L3500.3600, L3200.1600, L100.0100, L5500.0700 ####[facility] [address] [place], [address] Platelets (Bld) [#/Vol] 264 10*3/uL Normal 150-450 [facility] Comment on above: Performed By: #### L 3300.1200, L3500.3600, L3200.1600, L100.0100, L5500.0700 ####[facility] [address] [place], [address] RBC (Bld) [#/Vol] 4.99 10*6/uL Normal 4.2-5.4 [facility] Comment on above: Performed By: #### L 3300.1200, L3500.3600, L3200.1600, L100.0100, L5500.0700 ####[facility] [address] [place], [address] RDW SD 43.9 fl Normal 35.1-43.9 [facility] Comment on above: Performed By: #### L 3300.1200, L3500.3600, L3200.1600, L100.0100, L5500.0700 ####[facility] [address] [place], [address] WBC (Bld) [#/Vol] 6.1 10*3/uL Normal 4.4-11.0 [facility] Comment on above: Performed By: #### L 3300.1200, L3500.3600, L3200.1600, L100.0100, L5500.0700 ####[facility] [address] [place], [address] Eosinophil percentageOrdered By: Jake Grimes on 07-01-2025 Eosinophils/100 WBC (Bld) 1.0 % 0-5 [facility] Erythrocyte distribution wid th ratioOrdered By: Jake Grimes on 07-01-2025 Erythrocyte distribution width (RBC) [Ratio] 13.3 % 11.6-14.6 [facility] Erythrocyte distribution wid th standard deviationOrdered By: Jake Grimes on 07-01-2025 Erythrocyte distribution width (RBC) [Ratio] 43.9 fl 35.1-43.9 [facility] Hematocrit Auto (Bld) [Volum e fraction]Ordered By: Jake Grimes on 07-01-2025 Hematocrit (Bld) [Volume fraction] 44.9 % 37-47 [facility] Hemoglobin measurementOrdere d By: Jake Griems on 07-01-2025 Hemoglobin (Bld) [Mass/Vol] 14.8 g/dL 12.0-15.0 [facility] IgEOrdered By: Jake wyman 07-01-2025 IgE 66 IU/mL 6-495 [facility] Comment on above: Performed at: - [facility] [address] [place], [place] [id number] Director: Paulo Teresa PhD, Phone: [phone] at: [facility] [address] [id number] Director: Keke Espinosa MD, Phone: [phone] Immature granulocytes/100 WB C Auto (Bld)Ordered By: Jake Grimes on 07-01-2025 Immature granulocytes/100 WBC (Bld) 0.200 % 0.0-0.9 [facility] Comment on above: IG% - Immature Granu locytes (promyelocytes, myelocytes and metamyelocytes) > 1% indicates that a LEFT SHIFT is Present. MCV (mean corpuscular volume ) determinationOrdered By: Jake Grimes on 07-01-2025 MCV (RBC) [Entitic vol] 90.0 fL 81-99 [facility] Mean corpuscular hemoglobin (MCH) determinationOrdered By: Jake Grimes on 07-01-2025 MCH (RBC) [Entitic mass] 29.7 pg 27.0-32.0 [facility] Mean corpuscular hemoglobin concentration (MCHC) determinationOrdered By: Jake Grimes on 07-01-2025 MCHC (RBC) [Mass/Vol] 33.0 g/dL 32-36 [facility] Mean platelet volume determi nationOrdered By: Jake Grimes on 07-01-2025 Platelet mean volume (Bld) [Entitic vol] 11.1 fL 6.2-12.0 [facility] Monocyte percentageOrdered B y: Jake Grimes on 07-01-2025 Monocytes/100 WBC (Bld) 6.6 % 0-10 [facility] Neutrophil percentageOrdered By: Jake Grimes on 07-01-2025 Neutrophils/100 WBC (Bld) 61.1 % 47-70 [facility] No Panel InformationOrdered By: Jake Grimes on 07-01-2025 RAST Comment Comment . [facility] Comment on above: Levels of Specific I gE Class Description of Class ----- < 0.10 0 Negative 0.10 - 0.31 0/I Equivocal/Low 0.32 - 0.55 I Low 0.56 - 1.40 II Moderate 1.41 - 3.90 III High 3.91 - 19.00 IV Very High 19.01 - 100.00 V Very High >100.00 Very High Nucleated red blood cell per centageOrdered By: Jake Grimes on 07-01-2025 Nucleated RBC/100 WBC (Bld) [Ratio] 0 % 0-5 [facility] Platelet countOrdered By: Land on 07-01-2025 Platelets (Bld) [#/Vol] 264 10*3/uL 150-450 [facility] Pulmonary Visit Reporton Pulmonary Visit Report [facility] [address] [place] [address] OFFICE VISIT Date of Service: 07/01/25 MR#: [id number] Acct: [id number] Name: PURVI ARANA Rep #: [id number] : 1960 Provider: Dr. Jake Grimes, Age/Sex: 65/F [place] [facility] [place] Status: Signed Assessment and Plan Assessment and Plan (1) Asthma: Status: Acute Plan: The patient presented today for the evaluation of longstanding asthma, for which she has been maintained on Advair and as needed albuterol. She does have an active tobacco abuse history and has not had pulmonary function studies completed since 2018. Therefore, we will plan to obtain follow- up PFTs along with a 6-minute walk test to assess for any exertional hypoxemia. The patient will be continued on her current inhaler regimen, pending the outcome of her PFTs. In addition, will obtain CBC with differential to evaluate for peripheral eosinophilia along with IgE level, Aspergillus antibodies, RAST profile and ANCA. (2) TRENTON (obstructive sleep apnea): Status: Chronic Plan: The patient has a known history of mild obstructive sleep apnea initially diagnosed in 2017 and is currently prescribed nocturnal CPAP therapy. The patient indicated that she recently received new equipment, but we have yet to be linked to her [employer] account. I will have our office staff reach out to her DME provider so that we can attempt to obtain a copy of her compliance report for her follow-up office visit, especially in light of the fact that she is reporting the presence of nonrestorative sleep. (3) Nicotine dependence, cigarettes, uncomplicated: Status: Chronic Plan: Tobacco cessation counseling was provided. (4) Obesity: Status: Chronic Plan: Weight loss through dietary modification and a graded exercise regimen is strongly encouraged. (5) Lung nodule: Status: Chronic Plan: The patient recently had a CT scan completed through her PCPs office, which was never forwarded for my personal review. However, the patient was able to access the results of the scan through her patient portal, which indicated the presence of a new right upper lobe ground glass nodule measuring approximately 9 mm in size. Accordingly, I would recommend a follow-up CT scan be completed in 6 months. Orders have been placed accordingly. Orders: Orders Simple Pulmonary Exercise Test 07/07/25 E66.9 - Obesity, unspecified, F17.210 - Nicotine dependence, cigarettes, uncomplicated, G47.33 - Obstructive sleep apnea (adult) (pediatric), J45.909 - Unspecified asthma, uncomplicated PFT Complete - DLCO, Spirometry b/a bronchodilators, lung volumes 07/10/25 E66.9 - Obesity, unspecified, F17.210 - Nicotine dependence, cigarettes, uncomplicated, G47.33 - Obstructive sleep apnea (adult) (pediatric), J45.909 - Unspecified asthma, uncomplicated Aspergillus Antibodies Today E66.9 - Obesity, unspecified, F17.210 - Nicotine dependence, cigarettes, uncomplicated, G47.33 - Obstructive sleep apnea (adult) (pediatric), J45.909 - Unspecified asthma, uncomplicated CBC W/Diff, Automated Today E66.9 - Obesity, unspecified, F17.210 - Nicotine dependence, cigarettes, uncomplicated, G47.33 - Obstructive sleep apnea (adult) (pediatric), J45.909 - Unspecified asthma, uncomplicated Immunoglobulin E Today E66.9 - Obesity, unspecified, F17.210 - Nicotine dependence, cigarettes, uncomplicated, G47.33 - Obstructive sleep apnea (adult) (pediatric), J45.909 - Unspecified asthma, uncomplicated Allergen Resp. Area 5 Today E66.9 - Obesity, unspecified, F17.210 - Nicotine dependence, cigarettes, uncomplicated, G47.33 - Obstructive sleep apnea (adult) (pediatric), J45.909 - Unspecified asthma, uncomplicated ANCA Today E66.9 - Obesity, unspecified, F17.210 - Nicotine dependence, cigarettes, uncomplicated, G47.33 - Obstructive sleep apnea (adult) (pediatric), J45.909 - Unspecified asthma, uncomplicated Chest without Contrast 10/29/25 R91.1 - Solitary pulmonary nodule HPI HPI Comments Details: The patient is a 65-year-old female who presents to the clinic today in referral for the evaluation of asthma/chronic bronchitis. The patient was previously under the care of a technician telecommunication systems in 2020 due to a history of sleep apnea and asthma. The patient was diagnosed with obstructive sleep apnea in 2016, following a diagnostic polysomnogram which revealed evidence of mild TRENTON. She is currently prescribed nocturnal CPAP therapy. Although the patient indicated compliance with her PAP therapy, she does report residual nonrestorative sleep and daytime fatigue. Her current DME provider is Joseph. In addition to the above, the patient reported that she was diagnosed with asthma approximately 40 years ago. She does have an approximate 15-llza-vavg smoking history and continues to smoke 0.5 packs of ciga (more content not included)... Normal [facility] RBC Auto (Bld) [#/Vol]Ordere d By: Jake Grimes on 07-01-2025 RBC (Bld) [#/Vol] 4.99 10*6/uL 4.2-5.4 [facility] Serum Tunisian sycamore IgE antibody assay (units/volume)Ordered By: Jake Grimes on 07-01-2025 Tunisian [place] IgE Qn (S) <0.10 kU/L Class 0 [facility] Serum Aspergillus flavus ant ibody detection by immunodiffusionOrdered By: Jake Grimes on 07-01-2025 A. flavus Ab Immune diff Ql (S) Negative Neg:<1:1 [facility] Serum Aspergillus fumigatus IgE antibody assay (units/volume)Ordered By: Jake Grimes on 07-01-2025 A. fumigatus IgE Qn (S) <0.10 kU/L Class 0 [facility] Serum Aspergillus fumigatus antibody detection by immunodiffusionOrdered By: Jake Grimes on 07-01-2025 A. fumigatus Ab Immune diff Ql (S) Negative Neg:<1:1 [facility] Serum Aspergillus niger anti body detection by immunodiffusionOrdered By: Jake Grimes on 07-01-2025 A. niger Ab Immune diff Ql (S) Negative Neg:<1:1 [facility] Serum Bermuda grass IgE anti body assay (units/volume)Ordered By: Jake Grimes on 07-01-2025 Bermuda grass IgE Qn (S) <0.10 kU/L Class 0 [facility] Serum Cladosporium herbarum IgE antibody assay (units/volume)Ordered By: Jake Grimes on 07-01-2025 C. herbarum IgE Qn (S) <0.10 kU/L Class 0 [facility] Serum Dermatophagoides ptero nyssinus specific IgE antibody assay (units/volume)Ordered By: Jake Grimes on 07-01-2025 house dust mite IgE Qn (S) <0.10 kU/L Class 0 [facility] Serum Fraxinus americana IgE antibody assay (units/volume)Ordered By: Jake Grimes on 07-01-2025 White Librado IgE Qn (S) <0.10 kU/L Class 0 [facility] Serum Rumex acetosella IgE a ntibody assay (units/volume)Ordered By: Jake Grimes on 07-01-2025 Sheep Allen[place] IgE Qn (S) <0.10 kU/L Class 0 [facility] Comment on above: Performed at: [address] [id number] Director: Keke Espniosa MD, Phone: [phone] Serum black walnut IgE antib popeye assay (units/volume)Ordered By: Jake Grimes on 07-01-2025 Black Redmond IgE Qn (S) <0.10 kU/L Class 0 [facility] Serum classic neutrophil cyt oplasmic antibody assay (units/volume)Ordered By: Jake Grimes on 07-01-2025 Neutrophil cytoplasmic Ab.classic Qn (S) <1:20 titer Neg:<1:20 [facility] Serum cottonwood IgE antibod y assay (units/volume)Ordered By: Jake Grimes on 07-01-2025 Williamson IgE Qn (S) <0.10 kU/L Class 0 [facility] Serum dog epithelium IgE ant ibody assay (units/volume)Ordered By: Jake Grimes on 07-01-2025 Dog epithelium IgE Qn (S) <0.10 kU/L Class 0 [facility] Serum perinuclear neutrophil cytoplasmic antibody titer by immunofluorescenceOrdered By: Jake Grimes on 07-01-2025 Neutrophil cytoplasmic Ab.perinuclear IF (S) [Titer] <1:20 titer Neg:<1:20 [facility] Comment on above: The presence of posi tive fluorescence exhibiting P-ANCA orC-ANCA patterns alone is not specific for the diagnosis ofWegener's Granulomatosis (WG) or microscopic polyangiitis.Decisions about treatment should not be based solely onANCA IFA results. The International ANCA Group Consensusrecommends follow up testing of positive sera with both MN-3 and MPO-ANCA enzyme immunoassays. As many as 5% serumsamples are positive only by EIA. Ref. AM J Clin Nbuatq9746;111:507-513. Serum saige IgE antibody a ssay (units/volume)Ordered By: Jake Grimes on 07-01-2025 Saige IgE Qn (S) <0.10 kU/L Class 0 [facility] Serum white elm IgE antibody assay (units/volume)Ordered By: Jake Grimes on 07-01-2025 White Elm IgE Qn (S) <0.10 kU/L Class 0 [facility] Serum white mulberry IgE ant ibody assay (units/volume)Ordered By: Jake Grimes on 07-01-2025 White mulberry IgE Qn (S) <0.10 kU/L Class 0 [facility] White blood cell (WBC) count Ordered By: Jake Grimes on 07-01-2025 WBC (Bld) [#/Vol] 6.1 10*3/uL 4.4-11.0 [facility] CT THORAX SCREENING W/O CONT RASTon 05-14-2025 CT THORAX SCREENING W/O CONTRAST ORIGINAL EXAMINATION: LOW DOSE SCREENING CT OF THE CHEST WITHOUT CONTRAST05/13/2025 8:02 am TECHNIQUE: Low dose lung cancer screening CT of the chest was performed without the administration of intravenous contrast. Multiplanar reformatted images are provided for review. Automated exposure control, iterative reconstruction, and/or weight based adjustment of the mA/kV was utilized to reduce the radiation dose to as low as reasonably achievable. COMPARISON: CT thorax 07/07/2021 and 05/27/2018 HISTORY: ORDERING SYSTEM PROVIDED HISTORY: Reason for Exam: Lung cancer screening, >= 20 pk-yr, current smoker Lung cancer screening, >= 20 pk-yr, current smoker no hx ca FINDINGS: The heart is normal in size. Atherosclerosis seen of the coronary arteries and aorta. The great vessels appear normal in caliber. No lymphadenopathy is visible on this unenhanced exam. No suspicious findings seen in the visualized portion of the abdomen. The abdomen is not evaluated in detail. No pulmonary consolidation is identified. No pneumothorax or pleural effusion.Minimal centrilobular predominant emphysema within the upper lobes. Stable 1 cm anterior right upper lobe nodule (series 3 image 49). A new ground-glass nodule in the right upper lobe measures a proximally 9 mm. Stable 2 mm nodule within the lateral left upper lobe (series 3, image 42). Stable bleb within the right middle lobe. No aggressive osseous lesions visible. Degenerative changes seen in the spine. IMPRESSION: New ground-glass nodule in the right upper lobe measuring 9 mm. Other stable lung nodules. A 12 month follow-up low-dose CT is advised. Coronary atherosclerosis. Minimal emphysema. Information below is for Lung nodule tracking purposes: Nodule: S11 NS1 Other Findings: P-CAC Change: Change Recall : 12m fu Recall Type: LDCT LungRads: 2s I have personally reviewed the images of this examination and agree with the resident's findings and interpretation. Interpreted by: Tian Banegas MD Preliminary Report By: Zachary Amaya Electronically signed By Tian Banegas MD Dictated Date: 05/14/2025 8:14:35 AM Prelim Date: 05/14/2025 10:37:24 AM Sign Date: 05/14/2025 10:37:24 AM Ordering Provider: STEFAN MALIK [facility] XR CHEST 2 VIEWSon XR CHEST 2 VIEWS ORIGINAL EXAMINATION: TWO XRAY VIEWS OF THE CHEST 04/07/2025 4:10 pm COMPARISON: None. HISTORY: ORDERING SYSTEM PROVIDED HISTORY: Reason for Exam: cough FINDINGS: Cardiomediastinal silhouette is within normal limits. There is no overt edema. No focal consolidation. No pleural effusion or pneumothorax. Lower cervical spondylosis. IMPRESSION: No acute cardiopulmonary process. Interpreted by: Getachew Pierre Preliminary Report By: Getachew Pierre Electronically signed By Getachew Pierre Dictated Date: 04/07/2025 4:12:48 PM Prelim Date: 04/07/2025 4:15:15 PM Sign Date: 04/07/2025 4:15:15 PM Ordering Provider: DK Lemons [facility] APOBon 03-27-2025 Apolipoprotein B [Mass/Vol] 86 mg/dL Normal <90 [facility] Comment on above: Result Comment: Eva johanna < 90 Borderline High 90 - 99 High 100 - 130 Very High >130 ASCVD RISK THERAPEUTIC TARGET CATEGORY APO B (mg/dL) Very High Risk <80 (if extreme risk <70) High Risk <90 Moderate Risk <90 Performed At: [address] [id number] Jesús Davies MD Ph:[phone] Performed By: #### G FR, A1C, BMP #### [address] [address] LIPOAon 03-26-2025 Lipoprotein a [Moles/Vol] 9.9 nmol/L Normal <75.0 [facility] Comment on above: Result Comment: Note : Values greater than or equal to 75.0 nmol/L may indicate an independent risk factor for CHD, but must be evaluated with caution when applied to non- populations due to the influence of genetic factors on Lp(a) across ethnicities. Performed At: [facility] [id number] Brii Bates PhD Ph:[phone] Performed By: #### G FR, A1C, BMP #### [place] [id number] .Auto Diffon 03-25-2025 Basophil, Absolute 0.1 10 3/mcL Normal 0.0-0.3 [facility] Comment on above: Performed By: #### G FR, LIPID, FERR, TSHR, CMP, A1C, 034373, ANEU, CBC, VIDH, 142550, ADIFF, FES #### [place] [address] #### B12 #### [address] [address] Basophils/100 WBC (Bld) 0.8 % Normal 0.0-2.5 A [facility] Comment on above: Performed By: #### G FR, LIPID, FERR, TSHR, CMP, A1C, 635721, ANEU, CBC, VIDH, 033513, ADIFF, FES #### [place] [address] #### B12 #### [address] [address] Eosinophil, Absolute 0.1 10 3/mcL Normal 0.0-0.7 [facility] Comment on above: Performed By: #### G FR, LIPID, FERR, TSHR, CMP, A1C, 539591, ANEU, CBC, VIDH, 612848, ADIFF, FES #### [place] [address] #### B12 #### [address] [address] Eosinophils/100 WBC (Bld) 1.9 % Normal 0.0-6.0 [facility] Comment on above: Performed By: #### G FR, LIPID, FERR, TSHR, CMP, A1C, 909528, ANEU, CBC, VIDH, 245305, ADIFF, FES #### [place] [address] #### B12 #### [address] [address] Lymphocyte, Absolute 1.6 10 3/mcL Normal 0.9-4.3 [facility] Comment on above: Performed By: #### G FR, LIPID, FERR, TSHR, CMP, A1C, 902471, ANEU, CBC, VIDH, 790430, ADIFF, FES #### [address] [address] #### B12 #### [address] [address] Lymphocytes/100 WBC (Bld) 23.2 % Normal 20.0-40.0 [facility] Comment on above: Performed By: #### G FR, LIPID, FERR, TSHR, CMP, A1C, 023888, ANEU, CBC, VIDH, 080831, ADIFF, FES #### [address] [address] #### B12 #### [address] [address] Monocyte, Absolute 0.6 10 3/mcL Normal 0.1-1.4 [facility] Comment on above: Performed By: #### G FR, LIPID, FERR, TSHR, CMP, A1C, 145674, ANEU, CBC, VIDH, 762470, ADIFF, FES #### [address] [address] #### B12 #### [address] [address] Monocytes/100 WBC (Bld) 7.9 % Normal 2.0-13.0 [facility] Comment on above: Performed By: #### G FR, LIPID, FERR, TSHR, CMP, A1C, 015270, ANEU, CBC, VIDH, 373603, ADIFF, FES #### [address] [address] #### B12 #### [address] [address] Neutrophils/100 WBC (Bld) 66.2 % Normal 50.0-75.0 [facility] Comment on above: Performed By: #### G FR, LIPID, FERR, TSHR, CMP, A1C, 201944, ANEU, CBC, VIDH, 535921, ADIFF, FES #### [address] [address] #### B12 #### [address] [address] .GFRon 03-25-2025 Estimated Glomerular Filtration Rate 74 ml/min/1.73sqm Normal [facility] Comment on above: Result Comment: Stages of Chronic Kidney Disease (CKD) Stage Description eGFR(ml/min/1.73 sq.m.) CKD 1 Normal kidney function or >=90 normal kindney function with possible kidney damage (ex. Proteinuria) CKD 2 Kidney damage with mild loss 60-89 of kidney function CKD 3a Mild to moderate loss of kidney 45-59 function CKD 3b Moderate to severe loss of 30-44 of kindey function CKD 4 Severe loss of kidney function 15-29 CKD 5 Kidney failure <15 Note: (go live 2024) the eGFR calculation was updated to the 2020 CKD-EPI creatinine equation without a race factor to calculate the eGFR results. Performed By: #### G FR, A1C, BMP #### [address] [address] .NEUABSon 03-25-2025 Neutrophil, Absolute 4.7 10 3/mcL Normal 2.3-8.1 [facility] Comment on above: Performed By: #### G FR, LIPID, FERR, TSHR, CMP, A1C, 018371, ANEU, CBC, VIDH, 403851, ADIFF, FES #### [place] [id number] #### B12 #### [address] [address] A1Con 03-25-2025 Glucose [Mass/Vol] 128 mg/dL Normal [facility] Comment on above: Result Comment: Akua mated Average Glucose calculated by equation ((28.7xA1C)-46.7) Estimated average glucose (eAG) is a calculated value from Hemoglobin A1C and is patient portal representative of the average blood glucose level in the last 2-3 month period. Normal range: less than 114 mg/dL Performed By: #### G FR, LIPID, FERR, TSHR, CMP, A1C, 724010, ANEU, CBC, VIDH, [id number], ADIFF, FES #### [address] [address] #### B12 #### [address] [address] HbA1c (Bld) [Mass fraction] 6.1 % Normal 4.3-6.4 [facility] Comment on above: Performed By: #### G FR, LIPID, FERR, TSHR, CMP, A1C, 110597, ANEU, CBC, VIDH, 926122, ADIFF, FES #### [address] [address] #### B12 #### [address] [address] B12on 03-25-2025 Cobalamin (Vitamin B12) [Mass/Vol] 1668 pg/mL High 211-911 [facility] Comment on above: Performed By: #### G FR, A1C, BMP #### [address] [address] CBCon 03-25-2025 Erythrocyte distribution width (RBC) [Ratio] 14.0 % Normal 11.5-15.5 [facility] Comment on above: Performed By: #### G FR, LIPID, FERR, TSHR, CMP, A1C, 124597, ANEU, CBC, VIDH, 155209, ADIFF, FES #### [address] [address] #### B12 #### [address] [address] Hematocrit (Bld) [Volume fraction] 44.6 % Normal 34.0-46.0 [facility] Comment on above: Performed By: #### G FR, LIPID, FERR, TSHR, CMP, A1C, 468703, ANEU, CBC, VIDH, 893761, ADIFF, FES #### [address] [address] #### B12 #### [address] [address] Hgb 15.0 G/dL Normal 12.0-16.0 [facility] Comment on above: Performed By: #### G FR, LIPID, FERR, TSHR, CMP, A1C, 728193, ANEU, CBC, VIDH, 400286, ADIFF, FES #### [address] [address] #### B12 #### [address] [address] MCH (RBC) [Entitic mass] 30.0 pg Normal 27.0-33.0 [facility] Comment on above: Performed By: #### G FR, LIPID, FERR, TSHR, CMP, A1C, 441416, ANEU, CBC, VIDH, 337985, ADIFF, FES #### [address] [address] #### B12 #### [place] [address] MCHC 33.6 G/dL Normal 32.0-36.0 [facility] Comment on above: Performed By: #### G FR, LIPID, FERR, TSHR, CMP, A1C, 114412, ANEU, CBC, VIDH, 812482, ADIFF, FES #### [address] [address] #### B12 #### [address] [address] MCV (RBC) [Entitic vol] 89.4 fL Normal 80.0-99.0 [facility] Comment on above: Performed By: #### G FR, LIPID, FERR, TSHR, CMP, A1C, 424608, ANEU, CBC, VIDH, 690980, ADIFF, FES #### [address] [address] #### B12 #### [place] [address] Platelet 241 10 3/mcL Normal 150-450 [facility] Comment on above: Performed By: #### G FR, LIPID, FERR, TSHR, CMP, A1C, 486832, ANEU, CBC, VIDH, 070504, ADIFF, FES #### [address] [address] #### B12 #### [address] [address] Platelet mean volume (Bld) [Entitic vol] 8.9 fL Normal 6.6-10.5 [facility] Comment on above: Performed By: #### G FR, LIPID, FERR, TSHR, CMP, A1C, 114754, ANEU, CBC, VIDH, 476303, ADIFF, FES #### [address] [address] #### B12 #### [place] [address] RBC 4.99 10 6/mcL Normal 4.10-5.30 [facility] Comment on above: Performed By: #### G FR, LIPID, FERR, TSHR, CMP, A1C, 165363, ANEU, CBC, VIDH, 889165, ADIFF, FES #### [place] [address] #### B12 #### [place] [address] WBC 7.1 10 3/mcL Normal 4.5-10.8 [facility] Comment on above: Performed By: #### G FR, LIPID, FERR, TSHR, CMP, A1C, 205476, ANEU, CBC, VIDH, 759164, ADIFF, FES #### [place] [address] #### B12 #### [place] [address] CMPon 03-25-2025 Albumin Level 3.6 G/dL Normal 3.4-4.8 [facility] Comment on above: Performed By: #### G FR, LIPID, FERR, TSHR, CMP, A1C, 185189, ANEU, CBC, VIDH, 337129, ADIFF, FES #### [place] [address] #### B12 #### [address] [address] Albumin/Globulin [Mass ratio] 1.1 {ratio} Normal 1.1-2.5 [facility] Comment on above: Performed By: #### G FR, LIPID, FERR, TSHR, CMP, A1C, 965417, ANEU, CBC, VIDH, 525862, ADIFF, FES #### [address] [address] #### B12 #### [address] [address] ALP [Catalytic activity/Vol] 122 U/L Normal 40-135 [facility] Comment on above: Performed By: #### G FR, LIPID, FERR, TSHR, CMP, A1C, 780564, ANEU, CBC, VIDH, 442305, ADIFF, FES #### [address] [address] #### B12 #### [place] [address] ALT [Catalytic activity/Vol] 31 U/L Normal 14-59 [facility] Comment on above: Performed By: #### G FR, LIPID, FERR, TSHR, CMP, A1C, 842212, ANEU, CBC, VIDH, 565425, ADIFF, FES #### [address] [address] #### B12 #### [place] [address] AST [Catalytic activity/Vol] 11 U/L Normal 10-40 [facility] Comment on above: Performed By: #### G FR, LIPID, FERR, TSHR, CMP, A1C, 760855, ANEU, CBC, VIDH, 994541, ADIFF, FES #### [address] [address] #### B12 #### [place] [address] Bili Total 0.3 mg/dL Normal 0.2-1.0 [facility] Comment on above: Result Comment: Use of this assay is not recommended for patients undergoing treatment with eltrombopag due to the potential for falsely elevated results. Performed By: #### G FR, LIPID, FERR, TSHR, CMP, A1C, 812172, ANEU, CBC, VIDH, 943055, ADIFF, FES #### [address] [address] #### B12 #### [address] [address] BUN/Creatinine Ratio 18 ratio Normal 7-27 [facility] Comment on above: Performed By: #### G FR, LIPID, FERR, TSHR, CMP, A1C, 887591, ANEU, CBC, VIDH, 469256, ADIFF, FES #### [address] [address] #### B12 #### [address] [address] Calcium [Mass/Vol] 9.7 mg/dL Normal 8.4-10.2 [facility] Comment on above: Performed By: #### G FR, LIPID, FERR, TSHR, CMP, A1C, 821320, ANEU, CBC, VIDH, 577487, ADIFF, FES #### [address] [address] #### B12 #### [address] [address] Chloride [Moles/Vol] 102 mmol/L Normal 98-107 [facility] Comment on above: Performed By: #### G FR, LIPID, FERR, TSHR, CMP, A1C, 525872, ANEU, CBC, VIDH, 557609, ADIFF, FES #### [address] [address] #### B12 #### [address] [address] CO2 [Moles/Vol] 31 mmol/L Normal 23-31 [facility] Comment on above: Performed By: #### G FR, LIPID, FERR, TSHR, CMP, A1C, 664707, ANEU, CBC, VIDH, 987804, ADIFF, FES #### [address] [address] #### B12 #### [address] [address] Creatinine [Mass/Vol] 0.88 mg/dL Normal 0.51-0.95 [facility] Comment on above: Performed By: #### G FR, LIPID, FERR, TSHR, CMP, A1C, 066290, ANEU, CBC, VIDH, 641459, ADIFF, FES #### [address] [address] #### B12 #### [address] [address] Electrolyte Balance 4.0 mEq/L Normal 4.0-15.0 [facility] Comment on above: Performed By: #### G FR, LIPID, FERR, TSHR, CMP, A1C, 097600, ANEU, CBC, VIDH, 903927, ADIFF, FES #### [place] [address] #### B12 #### [address] [address] Globulin 3.2 G/dL Normal 2.7-4.4 [facility] Comment on above: Performed By: #### G FR, LIPID, FERR, TSHR, CMP, A1C, 929547, ANEU, CBC, VIDH, 507040, ADIFF, FES #### [address] [address] #### B12 #### [address] [address] Glucose [Mass/Vol] 110 mg/dL Normal 80-115 [facility] Comment on above: Performed By: #### G FR, LIPID, FERR, TSHR, CMP, A1C, 886781, ANEU, CBC, VIDH, 072510, ADIFF, FES #### [address] [address] #### B12 #### [address] [address] Potassium [Moles/Vol] 4.3 mmol/L Normal 3.5-5.1 [facility] Comment on above: Performed By: #### G FR, LIPID, FERR, TSHR, CMP, A1C, 132605, ANEU, CBC, VIDH, 429554, ADIFF, FES #### [address] [address] #### B12 #### [address] [address] Sodium [Moles/Vol] 137 mmol/L Normal 136-145 [facility] Comment on above: Performed By: #### G FR, LIPID, FERR, TSHR, CMP, A1C, 663533, ANEU, CBC, VIDH, 036661, ADIFF, FES #### [address] [address] #### B12 #### [address] [address] Total Protein 6.8 G/dL Normal 6.4-8.2 [facility] Comment on above: Performed By: #### G FR, LIPID, FERR, TSHR, CMP, A1C, 535917, ANEU, CBC, VIDH, 912752, ADIFF, FES #### [address] [address] #### B12 #### [address] [address] Urea nitrogen [Mass/Vol] 16 mg/dL Normal 7-18 [facility] Comment on above: Performed By: #### G FR, LIPID, FERR, TSHR, CMP, A1C, 650293, ANEU, CBC, VIDH, 395936, ADIFF, FES #### [address] [address] #### B12 #### [address] [address] [place]ne 03-25-2025 Ferritin [Mass/Vol] 51.0 ng/mL Normal 8.0-252.0 [facility] Comment on above: Performed By: #### G FR, LIPID, FERR, TSHR, CMP, A1C, 898179, ANEU, CBC, VIDH, 272487, ADIFF, FES #### [place] [address] [place], [place] [address] #### B12 #### [place] [address] [place] [address] FESon 03-25-2025 Iron [Mass/Vol] 70 ug/dL Normal 50-170 [facility] Comment on above: Performed By: #### G FR, A1C, BMP #### [place] [address] [place], [place] [address] Iron Sat 23 % Normal [facility] Comment on above: Performed By: #### G FR, A1C, BMP #### [place] [address] [place], [place] [address] TIBC 309 mcg/dL Normal 250-450 [facility] Comment on above: Performed By: #### G FR, A1C, BMP #### [place] [address] [place], [place] [address] LABORATORYOrdered By: Cecile Aguilar on 03-25-2025 Albumin DL <= 20 mg/L (U) [Mass/Vol] 2.3 mg/L Invalid Interpretation Code AO ADM SS Albumin/Creatinine DL <= 20 mg/L (U) [Mass ratio] 9 mg/G Normal 0 - 30 mg/G AO Chemistry S Creatinine (U) [Mass/Vol] 25.7 mg/dL Low 29.0 - 226.0 mg/dL AO ADM SS Cholesterol [Mass/Vol] 178 mg/dL Normal 0 - 2 00 mg/dL AO ADM SS Comment on above: Interpretive Data: C holesterol Reference Interval: Less than 200 Desirable 200-239 Borderline high risk 240 and above High risk Cholesterol in HDL [Mass/Vol] 55 mg/dL Normal 40 - 60 mg/dL AO ADM SS Cholesterol in LDL [Mass/Vol] 100 mg/dL Normal 0 - 130 mg/dL AO ADM SS Triglyceride [Mass/Vol] 115 mg/dL Normal 0 - 150 mg/dL AO ADM SS Comment on above: Interpretive Data: T riglyceride Reference Interval: Less than 150 Normal 150-199 Borderline high risk 200-499 High risk 500 or higher Very high risk LABORATORYOrdered By: SYSTEM SYSTEM on 03-25-2025 25-hydroxyvitamin D3 [Mass/Vol] 50.0 ng/mL Invalid Interpretation Code AO ADM SS Comment on above: Interpretive Data: I nterpretive Values Based on Total 25(OH) Vitamin D: Deficient <20 ng/mL Insufficient 20 - <30 ng/mL Sufficient 30-100 ng/mL Albumin BCP dye [Mass/Vol] 3.6 G/dL Normal 3.4 - 4.8 G/dL AO ADM SS Albumin/Globulin [Mass ratio] 1.1 {ratio} Normal 1.1 - 2.5 ratio AO ADM SS ALP [Catalytic activity/Vol] 122 U/L Normal 40 - 135 U/L AO ADM SS ALT With P-5'-P [Catalytic activity/Vol] 31 U/L Normal 14 - 59 U/L AO ADM SS AST With P-5'-P [Catalytic activity/Vol] 11 U/L Normal 10 - 40 U/L AO ADM SS Basophils (Bld) [#/Vol] 0.1 103/mcL Normal 0.0 - 0.3 10^3/mcL AO Workflow SS Basophils/100 WBC (Bld) 0.8 % Normal 0.0 - 2.5 % AO Workflow SS Bilirubin [Mass/Vol] 0.3 mg/dL Normal 0.2 - 1 .0 mg/dL AO ADM SS Comment on above: Interpretive Data: U se of this assay is not recommended for patients undergoing treatment with eltrombopag due to the potential for falsely elevated results. Calcium [Mass/Vol] 9.7 mg/dL Normal 8.4 - 10. 2 mg/dL AO ADM SS Chloride [Moles/Vol] 102 mmol/L Normal 98 - 10 7 mmol/L AO ADM SS CO2 [Moles/Vol] 31 mmol/L Normal 23 - 31 mmol/L AO ADM SS Cobalamin (Vitamin B12) [Mass/Vol] 1668 pg/mL High 211 - 911 pg/mL AH ADM SS Creatinine [Mass/Vol] 0.88 mg/dL Normal 0.51 - 0.95 mg/dL AO ADM SS Electrolyte Balance 4.0 mEq/L Normal 4.0 - 15 .0 mEq/L AO ADM SS Eosinophil, Absolute 0.1 103/mcL Normal 0.0 - 0 .7 10^3/mcL AO Workflow SS Eosinophils/100 WBC (Bld) 1.9 % Normal 0.0 - 6.0 % AO Workflow SS Erythrocyte distribution width (RBC) [Ratio] 14.0 % Normal 11.5 - 15.5 % AO Workflow SS Estimated Glomerular Filtration Rate 74 ml/min/1.73sqm Invalid Interpretation Code AO Chemistry S Comment on above: Interpretive Data: Stages of Chronic Kidney Disease (CKD) Stage Description eGFR(ml/min/1.73 sq.m.) CKD 1 Normal kidney function or >=90 normal kindney function with possible kidney damage (ex. Proteinuria) CKD 2 Kidney damage with mild loss 60-89 of kidney function CKD 3a Mild to moderate loss of kidney 45-59 function CKD 3b Moderate to severe loss of 30-44 of kindey function CKD 4 Severe loss of kidney function 15-29 CKD 5 Kidney failure <15 Note: (go live 2024) the eGFR calculation was updated to the 2020 CKD-EPI creatinine equation without a race factor to calculate the eGFR results. Ferritin [Mass/Vol] 51.0 ng/mL Normal 8.0 - 252.0 ng/mL AO ADM SS Globulin 3.2 G/dL Normal 2.7 - 4.4 G/dL AO ADM SS Glucose [Mass/Vol] 110 mg/dL Normal 80 - 115 mg/dL AO ADM SS Glucose [Mass/Vol] 128 mg/dL Invalid Interpretation Code AO Chemistry S Comment on above: Interpretive Data: E stimated average glucose (eAG) is a calculated value from Hemoglobin A1C and is patient portal representative of the average blood glucose level in the last 2-3 month period. Normal range: less than 114 mg/dL HbA1c (Bld) [Mass fraction] 6.1 % Normal 4.3 - 6.4 % AO ADM SS Hematocrit (Bld) [Volume fraction] 44.6 % Normal 34.0 - 46.0 % AO Workflow SS Hemoglobin (Bld) [Mass/Vol] 15.0 G/dL Normal 12.0 - 16.0 G/dL AO Workflow SS Iron [Mass/Vol] 70 ug/dL Normal 50 - 170 mcg/dL AO ADM SS Iron binding capacity [Mass/Vol] 309 mcg/dL Normal 250 - 450 mcg/dL AO ADM SS Iron Sat 23 % Invalid Interpretation Code AO ADM SS Lymphocytes (Bld) [#/Vol] 1.6 103/mcL Normal 0.9 - 4.3 10^3/mcL AO Workflow SS Lymphocytes/100 WBC (Bld) 23.2 % Normal 20.0 - 40.0 % AO Workflow SS MCH (RBC) [Entitic mass] 30.0 pg Normal 27. 0 - 33.0 pg AO Workflow SS MCHC 33.6 G/dL Normal 32.0 - 36.0 G/dL AO Workflow SS MCV (RBC) [Entitic vol] 89.4 fL Normal 80.0 - 99.0 fL AO Workflow SS Monocytes (Bld) [#/Vol] 0.6 103/mcL Normal 0.1 - 1.4 10^3/mcL AO Workflow SS Monocytes/100 WBC (Bld) 7.9 % Normal 2.0 - 13.0 % AO Workflow SS Neutrophils (Bld) [#/Vol] 4.7 103/mcL Normal 2.3 - 8.1 10^3/mcL AO Workflow SS Neutrophils/100 WBC (Bld) 66.2 % Normal 50.0 - 75.0 % AO Workflow SS Platelet mean volume (Bld) [Entitic vol] 8.9 fL Normal 6.6 - 10.5 fL AO Workflow SS Platelets (Bld) [#/Vol] 241 103/mcL Normal 150 - 450 10^3/mcL AO Workflow SS Potassium [Moles/Vol] 4.3 mmol/L Normal 3.5 - 5.1 mmol/L AO ADM SS Protein [Mass/Vol] 6.8 G/dL Normal 6.4 - 8.2 G/dL AO ADM SS RBC (Bld) [#/Vol] 4.99 106/mcL Normal 4.10 - 5.30 10^6/mcL AO Workflow SS Sodium [Moles/Vol] 137 mmol/L Normal 136 - 145 mmol/L AO ADM SS TSH Qn 0.74 m[IU]/L Normal 0.36 - 3.74 mcIU/mL AO ADM SS Urea nitrogen [Mass/Vol] 16 mg/dL Normal 7 - 18 mg/dL AO ADM SS Urea nitrogen/Creatinine [Mass ratio] 18 ratio Normal 7 - 27 ratio AO ADM SS WBC (Bld) [#/Vol] 7.1 103/mcL Normal 4.5 - 10.8 10^3/mcL AO Workflow SS LIPIDon 03-25-2025 Cholesterol [Mass/Vol] 178 mg/dL Normal 0-200 [facility] Comment on above: Result Comment: Chol esterol Reference Interval: Less than 200 Desirable 200-239 Borderline high risk 240 and above High risk Performed By: #### G FR, A1C, BMP #### [address] [address] Cholesterol in HDL [Mass/Vol] 55 mg/dL Normal 40-60 [facility] Comment on above: Performed By: #### G FR, A1C, BMP #### [address] [address] Cholesterol in LDL [Mass/Vol] 100 mg/dL Normal 0-130 [facility] Comment on above: Performed By: #### G FR, A1C, BMP #### [address] [address] Triglyceride [Mass/Vol] 115 mg/dL Normal 0-150 [facility] Comment on above: Result Comment: Trig lyceride Reference Interval: Less than 150 Normal 150-199 Borderline high risk 200-499 High risk 500 or higher Very high risk Performed By: #### G FR, A1C, BMP #### [address] [address] MALBRon 03-25-2025 U Creatinine 25.7 mg/dL Low 29.0-226.0 [facility] Comment on above: Performed By: #### G FR, A1C, BMP #### [address] [address] U Microalb 2.3 mg/L Normal [facility] Comment on above: Performed By: #### G FR, A1C, BMP #### [address] [address] U Ratio Alb/Cre 9 mg/G Normal 0-30 [facility] Comment on above: Performed By: #### G FR, A1C, BMP #### [address] [address] TSHRon 03-25-2025 TSH Qn 0.74 m[IU]/L Normal 0.36-3.74 [facility] Comment on above: Performed By: #### G FR, LIPID, FERR, TSHR, CMP, A1C, 063308, ANEU, CBC, VIDH, 129258, ADIFF, FES #### [place] [address] [place], [place] [address] #### B12 #### [place] [address] [place] [address] [facility] Vit. D 25-Hydroxy 50.0 ng/mL Normal [facility] Comment on above: Result Comment: Inte rpretive Values Based on Total 25(OH) Vitamin D: Deficient <20 ng/mL Insufficient 20 - <30 ng/mL Sufficient 30-100 ng/mL Performed By: #### G FR, A1C, BMP #### [place] [id number] [place], [place] [address] CT SPINE THORACIC W/O CONTRA STon 02-03-2025 CT SPINE THORACIC W/O CONTRAST ADDENDUM ADDENDUM: Upon further review, the study also demonstrates a nondisplaced subacute fracture of the mid spinous process of T10, which demonstrates partial cortication, and minimal periosteal reaction. There is mild edema of the adjacent dorsal paraspinous musculature. Correlation with clinical findings for point tenderness may be useful. Interpreted by: Vinay Garces Preliminary Report By: Vinay Garces Electronically signed By Vinay Garces Dictated Date: 02/03/2025 5:14:21 PM Prelim Date: 02/03/2025 5:21:35 PM Sign Date: 02/03/2025 5:21:35 PM Ordering Provider: SAIGE RESENDEZ ORIGINAL EXAMINATION: CT OF THE THORACIC SPINE WITHOUT CONTRAST 11/28/2024 10:05 pm: TECHNIQUE: CT of the thoracic spine was performed without the administration of intravenous contrast. Multiplanar reformatted images are provided for review. Automated exposure control, iterative reconstruction, and/or weight based adjustment of the mA/kV was utilized to reduce the radiation dose to as low as reasonably achievable. COMPARISON: CT thorax 07/07/2021 HISTORY: ORDERING SYSTEM PROVIDED HISTORY: Reason for Exam: Patient states she has right shoulder/arm pain. patient states she fell down steps about 3 weeks ago. pt states she has been taking pain medications and muscle relaxers with no relief pain s/p fall FINDINGS: BONES/ALIGNMENT: There is normal alignment of the spine. The vertebral body heights are maintained. There is mild anterior wedge configuration again seen at T6, T7, unchanged, which may be developmental. There are small endplate indentations compatible with Schmorl's nodes. There is moderate-severe disc space narrowing at T6-T7, T7-T8 and moderate-severe disc space narrowing at T8-T9. There is associated endplate sclerosis and osteophyte formation, vacuum disc phenomenon at the midthoracic spine levels compatible with discogenic degenerative change. DEGENERATIVE CHANGES: No gross spinal canal stenosis or bony neural foraminal narrowing of the thoracic spine. SOFT TISSUES: No paraspinal mass is seen. There is mild bilateral posterior atelectasis of the lung kirby. IMPRESSION: There is no acute vertebral compression fracture of the thoracic spine. Interpreted by: Vinay Garces Preliminary Report By: Vinay Garces Electronically signed By Vinay Garces Dictated Date: 11/28/2024 10:16:19 PM Prelim Date: 11/28/2024 10:29:51 PM Sign Date: 11/28/2024 10:29:51 PM Ordering Provider: SAIGE RESENDEZ [facility] MRI SPINE CERVICAL W/O CONTR Delmi 01-27-2025 MRI SPINE CERVICAL W/O CONTRAST ORIGINAL EXAMINATION: MRI OF THE CERVICAL SPINE WITHOUT CONTRAST01/27/2025 9:06 am TECHNIQUE: Multiplanar multisequence MRI of the cervical spine was performed without the administration of intravenous contrast. COMPARISON: CT cervical spine 11/28/2024, cervical spine radiographs 11/27/2024 HISTORY: ORDERING SYSTEM PROVIDED HISTORY: Reason for Exam: 2-month history of cervical radicular pain, rule out nerve encroachment. FINDINGS: OSSEOUS STRUCTURES AND JOINTS: The cervical spine is seen to C7-T1. Vertebral body height and alignment are maintained. No fracture or dislocation is evident. Bone marrow signal pattern is within normal limits. No marrow replacing osseous lesions are evident. Intervertebral disc heights and signal intensity are normal. C1-2: No significant canal or foraminal stenosis. C2-3: No significant canal or foraminal stenosis. C3-4: No significant canal or foraminal stenosis. C4-5: No significant canal or foraminal stenosis. C5-6: No significant canal or foraminal stenosis. C6-7: There is disc herniation eccentric to the right with an AP extent of about 6 mm directly impinging upon the exiting right C6 nerve root as it enters the foramen. The canal is adequately patent. C7-T1: No significant canal or foraminal stenosis. UPPER THORACIC SPINE: No significant canal or foraminal stenosis is appreciated on the sagittal sequences. SOFT TISSUES: The visualized spinal cord exhibits normal signal and morphology. Associated soft tissues are grossly unremarkable. The visualized intracranial contents exhibit no acute abnormalities. IMPRESSION: Right-sided disc herniation at C6-C7 impinging upon the exiting right C6 nerve root. I have personally reviewed the images of this examination and agree with the resident's findings and interpretation. Interpreted by: Raman Olmedo Preliminary Report By: Washington Kendrick Electronically signed By Raman Olmedo Dictated Date: 01/27/2025 9:08:08 AM Prelim Date: 01/27/2025 9:55:33 AM Sign Date: 01/27/2025 9:55:33 AM Ordering Provider: KYLE LOGAN [facility] [place] XR CHEST 2 VIEWSon XR CHEST 2 VIEWS ORIGINAL HISTORY: Wheezing COMPARISON: 18 November 2021 FINDINGS: The lungs and pleural spaces are clear. The cardiac silhouette is within normal limits. The pulmonary vasculature is within normal limits. IMPRESSION: Clear lungs. Interpreted by: David Jin MD Preliminary Report By: David Jin MD Electronically signed By David Jin MD Dictated Date: 12/16/2024 1:44:05 PM Prelim Date: 12/16/2024 1:44:27 PM Sign Date: 12/16/2024 1:44:27 PM Ordering Provider: MARCUS FREEMAN [facility] XR RIBS 2 VIEWS RIGHTon 11-29 XR RIBS 2 VIEWS RIGHT ORIGINAL EXAMINATION: 2 XRAY VIEWS OF THE RIGHT RIB12/13/2024 10:25 am RIBS RIGHT TECHNIQUE: AP view centered high and low and oblique views of the right ribs were obtained. COMPARISON: Chest x-ray 11/18/2021. HISTORY: ORDERING SYSTEM PROVIDED HISTORY: Reason for Exam: right rib pain FINDINGS: There is no evidence of an acute displaced rib fracture. The visualized lungs are clear. No pneumothorax is identified. IMPRESSION: No visible displaced rib fracture. I have personally reviewed the images of this examination and agree with the resident's findings and interpretation. Interpreted by: David Jin MD Preliminary Report By: Ruthy Ratliff Electronically signed By David Jin MD Dictated Date: 12/16/2024 3:15:29 PM Prelim Date: 12/16/2024 3:29:23 PM Sign Date: 12/16/2024 3:29:23 PM Ordering Provider: MARCUS FREEMAN [facility] CT SPINE CERVICAL W/O CONTRA STon 11-28-2024 CT SPINE CERVICAL W/O CONTRAST ORIGINAL EXAMINATION: CT OF THE CERVICAL SPINE WITHOUT CONTRAST 11/28/2024 10:02 pm TECHNIQUE: CT of the cervical spine was performed without the administration of intravenous contrast. Multiplanar reformatted images are provided for review. Automated exposure control, iterative reconstruction, and/or weight based adjustment of the mA/kV was utilized to reduce the radiation dose to as low as reasonably achievable. COMPARISON: Cervical spine, November 27, 2024 HISTORY: ORDERING SYSTEM PROVIDED HISTORY: Reason for Exam: Patient states she has right shoulder/arm pain. patient states she fell down steps about 3 weeks ago. pt states she has been taking pain medications and muscle relaxers with no relief pain s/p fall FINDINGS: BONES/ALIGNMENT: There is no acute fracture or traumatic malalignment. DEGENERATIVE CHANGES: No severe osseous spinal canal stenosis. SOFT TISSUES: There is no prevertebral soft tissue swelling. IMPRESSION: No acute abnormality of the cervical spine. Interpreted by: Adam Tamez MD Preliminary Report By: Adam Tamez MD Electronically signed By Adam Tamez MD Dictated Date: 11/28/2024 10:05:05 PM Prelim Date: 11/28/2024 10:07:46 PM Sign Date: 11/28/2024 10:07:46 PM Ordering Provider: SAIGE RESENDEZ [facility] XR SHOULDER MINIMUM 2 VIEWS RIGHTon 11-27-2024 XR SHOULDER MINIMUM 2 VIEWS RIGHT ORIGINAL EXAMINATION: TWO XRAY VIEWS OF THE RIGHT SHOULDER 11/27/2024 2:13 pm COMPARISON: None. HISTORY: ORDERING SYSTEM PROVIDED HISTORY: Reason for Exam: Pain right shoulder radiating down the right arm after suffering a fall FINDINGS: Glenohumeral joint is normally aligned. No evidence of acute fracture or dislocation. No abnormal periarticular calcifications. The AC joint is unremarkable in appearance. Visualized lung is unremarkable. IMPRESSION: No acute abnormality. Interpreted by: Tian Vigil DO Preliminary Report By: Tian Vigil DO Electronically signed By Tian Vigil DO Dictated Date: 11/27/2024 2:45:21 PM Prelim Date: 11/27/2024 2:46:00 PM Sign Date: 11/27/2024 2:46:00 PM [facility] XR SPINE CERVICAL AP/LATon 0 11-27-2024 XR SPINE CERVICAL AP/LAT ORIGINAL EXAMINATION: TWO XRAY VIEWS OF THE CERVICAL SPINE 11/27/2024 2:12 pm COMPARISON: None. HISTORY: ORDERING SYSTEM PROVIDED HISTORY: Reason for Exam: Pain right side of the neck FINDINGS: 5 lumbar segments present in appropriate apposition and alignment. There is no acute fracture, infiltrative bony lesion or subluxation. Lung apices are clear. IMPRESSION: No acute bony abnormality. Interpreted by: Tian Vigil DO Preliminary Report By: Tian Vigil DO Electronically signed By Tian Vigil DO Dictated Date: 11/27/2024 2:34:38 PM Prelim Date: 11/27/2024 2:35:12 PM Sign Date: 11/27/2024 2:35:12 PM Ordering Provider: [facility] CNOVon 11-24-2024 CNOV Office Visit ([facility] ) ----- PURVI ARANA ([id number]) 1960 F Date Time Provider Department 11/24/24 3:30 PM HONEY HUDSON [facility] During your visit today, we recorded the following information about you: Temperature Pulse Respiration Blood pressure 99.4 degrees 89/minute 16/minute 147/85 Weight 104.7 kg Honey Hudson APRN.CNP 11/24/2024 4:39 PM Signed Subjective CC: right posterior shoulder pain HPI: 64-year-old female presents with complaint of posterior right shoulder pain that was present upon waking this morning. She denies any precipitating event or injury, but does describe a grabbing sensation that does radiate right out to her shoulder and her right arm. She has tried heat and Tylenol without resolve she does not remember ever having this previously. She has not ever had back surgery. She feels as though the pain is gotten worse throughout the day. She has increased spasms with certain rotations of her head and lifting that right arm. She does not have any numbness or weakness in the arm. Denies other somatic complaints. Review of Systems Constitutional: Negative. HENT: Negative. Eyes: Negative. Respiratory: Negative. Cardiovascular: Negative. Gastrointestinal: Negative. Genitourinary: Negative. Musculoskeletal: Right posterior shoulder pain Skin: Negative. Neurological: Negative. Objective Physical Exam Vitals and nursing note reviewed. Constitutional: Appearance: Normal appearance. HENT: Head: Normocephalic. Eyes: Pupils: Pupils are equal, round, and reactive to light. Cardiovascular: Rate and Rhythm: Normal rate. Heart sounds: Normal heart sounds. Pulmonary: Effort: Pulmonary effort is normal. Musculoskeletal: Arms: Comments: Highlighted area on diagram above is indicative of where patient is having most pain. There is a reproducible pain in this area and the palpable spasm here. There is no bruising or obvious deformity. She maintains full range of motion to the right shoulder and neck, but with some decent hesitancy due to the grabbing sensation nature of the spasm. No midline tenderness. No neck pain. Neurological: General: No focal deficit present. Mental Status: She is alert and oriented to person, place, and time. -I have reviewed and updated with the patient: allergies, VS, current medications, Past Medical History,Past Surgical History, Past Social History. BP 147/85 Pulse 89 Temp (Src) 99.4 (Temporal) Resp 16 Wt 230 lb 12.8 oz (104.7kg) SpO2 98% ASSESSMENT/PLAN: 1. Muscle spasm of right shoulder - ICD9: 728.85, ICD10: M62.838 This patient is felt to have a right sided posterior shoulder muscle spasm. Physiology of this condition is reviewed with this patient as well supportive measures for home. We will give her a short course steroid as well as muscle relaxers and we did discuss the mechanism of each. We also discussed that muscle relaxers make her drowsy. Advised to alternating ice and heat. We did discuss the expected resolution times symptoms and the treatment has begun. Advised if she is not having improvement of symptoms with this therapy the next few days, to please follow-up with her primary care provider. Reviewed signs and symptoms that would warrant further evaluation with PCP versus emergently with the ER. Patient states understanding and compliance. - CYCLOBENZAPRINE 5 MG TABLET - PREDNISONE 50 MG TABLET CHERRI Durbin Cheryl, APRN.CNP 11/24/2024 4:07 PM Signed Back Pain What care is needed at home? Back pain is common. In most cases, your back will feel better in 1 to 3 weeks. You may need to have help at home if you are not able to do your normal activities right away. Some people need help with things like cooking or bathing. Ask your doctor what you need to do when you go home. Make sure you ask questions if you do not understand what the doctor says. This way you will know what you need to do. Rest your back. Full bedrest should not be done for more than 1 to 2 days in most cases. Get up and move around gently during the day as you are able. Some positions are more comfortable for you when lying down. Try using a pillow between your knees when you lie on your side. Use a pillow under your knees when on your back. Ice your back a few times a day. Place an ice pack or a bag of frozen peas wrapped in a towel over the painful part. Never put ice right on the skin. Do not leave the ice on more than 10 to 15 minutes at a time. Heat may be used later but not right away. Heat can make swelling worse. If your doctor tells you to use heat, put a heating pad on the painful part for no more than 20 minutes at a time. Never go to sleep with a heating pad on as this can cause moreno. Protect your back. This means no twisting or lifting heavy objects. Check with your doctor when i (more content not included)... Normal [facility] BD BONE DENSITY DEXA AXIAL S Naif 06-04-2024 BD BONE DENSITY DEXA AXIAL SKELETON ORIGINAL EXAMINATION: BONE DENSITOMETRY 06/04/2024 11:13 am TECHNIQUE: A bone density dual x-ray absorptiometry (DEXA) scan was performed of the axial (e.g. hips, spine) and/or appendicular (e.g. radius) skeleton as appropriate on a Hologic system. COMPARISON: None. HISTORY: Reason for Exam: Osteoporosis Screening FINDINGS: BMD (g/cm2) Lumbar Spine: 0.800. T Score Lumbar Spine: -2.2 BMD (g/cm2) Left Femoral Neck: 0.702. T Score Left Femoral Neck: -1.3 BMD (g/cm2) Left Hip: 0.761. T Score Left Hip: -1.5 FRAX: 10 year fracture risk assessment Major osteoporotic fracture: 10% Hip fracture: 1.5% The BHOF f/k/a NOF recommends that FDA-approved medical therapies be considered in post-menopausal women and men age >/= 50 years with a: * Hip or vertebral fracture, or * T-score of /= 20% for major osteoporotic fractures or * >/= 3% for hip fractures All treatment decisions require clinical judgement and consideration of individual patient factors, including patient preferences, comorbidities, previous drug use, risk factors not captured in the FRAX registered model (e.g., frailty, falls, vitamin D deficiency, increased bone turnover, interval significant decline in bone density) and possible under- or over-estimation of fracture risk by FRAX. IMPRESSION: Osteopenia by WHO criteria. I have personally reviewed the images of this examination and agree with the resident's findings and interpretation. Interpreted by: Esther Valentin MD Preliminary Report By: Jey Alexis Electronically signed By Esther Valentin MD Dictated Date: 06/04/2024 11:30:01 AM Prelim Date: 06/04/2024 12:35:10 PM Sign Date: 06/04/2024 12:35:10 PM Ordering Provider: KYLE Lemons [facility] ([place]) MA MAMMOGRAM SCREENING BILAT ERAL W/TOMOon 06-04-2024 MA MAMMOGRAM SCREENING BILATERAL W/NICK ORIGINAL FROM: [address] [address] PROCEDURE FOR: [address]VI [place] [address] [place] [address] Home: PID#: [id number] Exam#: [id number] : 1960 Age: 64 TO: KYLE LOGAN DO [address] [phone] Fax: NO FAX EXAMINATION: SCREENING DIGITAL BILATERAL MAMMOGRAM WITH TOMOSYNTHESIS, 06/04/2024 10:49 am TECHNIQUE: Screening mammography of the bilateral breasts was performed with tomosynthesis. 2D standard and 3D tomosynthesis combination imaging performed through both breasts in the MLO and CC projection. Computer aided detection was utilized in the interpretation of this exam. COMPARISON: October 04, 2022, September 07, 2021, September 01, 2020 HISTORY: Breast cancer screening. FINDINGS: BREAST DENSITY: There are scattered areas of fibroglandular density. There are bilateral benign-type calcifications. There is no significant mass, architectural distortion or microcalcification. Fibroglandular pattern is stable. IMPRESSION: No mammographic evidence of malignancy. Continued screening with annual mammograms is recommended. Jan Lopez risk calculations, generated with the history provided, report this patient's 10 year risk and lifetime risk for developing breast cancer at 5.4% and 11.9%, respectively. Based on this assessment tool, if the patient's calculated lifetime risk is below 20%, then the patient is considered at average risk for developing breast cancer. If the patient's calculated lifetime risk is at or above 20%, then the patient is considered high risk for developing breast cancer and may be a candidate for supplemental breast MRI screening in addition to annual mammographic screening per the [place] [employer]. BIRADS: MAMMOGRAM BI-RADS: 2: Benign finding RECALL: 1 year screening RECALL TYPE: mammo LETTER SENT: Normal BI-RADS 1 and 2 Interpreted by: Malena Maurer Preliminary Report By: Malena Maurer Electronically signed By Malena Maurer Dictated Date: 06/04/2024 12:24:40 PM Prelim Date: 06/04/2024 12:34:56 PM Sign Date: 06/04/2024 12:34:56 PM Ordering Provider: KYLE LOGAN [employer]: LIVIER RICO RT(R)(M)(CT) letter sent: Normal BI-RADS 1 and 2 Mammogram BI-RADS: 2 Benign Normal [facility] ([place]) US RENALon 06-04-2024 US RENAL ORIGINAL EXAMINATION: ULTRASOUND OF THE KIDNEYS 06/04/2024 11:45 am COMPARISON: Renal ultrasound June 13, 2023 Abdominal ultrasound March 15, 2023 HISTORY: ORDERING SYSTEM PROVIDED HISTORY: Reason for Exam: Follow up right complex renal cyst FINDINGS: The right kidney measures 11.3 x 4.7 x 5.6 cm. The right lower pole renal cyst is again visualized with no significant change in size or appearance. It measures 1.6 x 1.5 x 1.6 cm and still demonstrates some low-level internal echoes. Previous septations are less well seen. No other complex features. There are additional small simple cysts throughout the right kidney as seen on previous ultrasounds. There is no hydronephrosis or focal mass. The left kidney measures 12.2 x 6.7 x 6 cm. It demonstrates normal echotexture and cortical thickness appropriate for age. There is no hydronephrosis or focal mass seen. There is a subcentimeter parapelvic cyst in the left kidney of no clinical significance. The bladder is unremarkable in appearance and has approximately 305 mL prevoid volume. Postvoid volume is 9 mL. IMPRESSION: Stable appearance of mildly complex right lower pole cystic lesion. This strongly favors a benign etiology. No further follow-up is suggested. Multiple stable bilateral simple cysts. I have personally reviewed the images of this examination and agree with the resident's findings and interpretation. Interpreted by: Faizan Carrington MD Preliminary Report By: Travis Bailey Electronically signed By Faizan Carrington MD Dictated Date: 06/04/2024 1:01:52 PM Prelim Date: 06/04/2024 4:01:58 PM Sign Date: 06/04/2024 4:01:58 PM Ordering Provider: KYLE Lemons [facility] ([place]) .Auto Diffon 02-15-2024 Basophil, Absolute 0.0 10 3/mcL Normal 0.0-0.2 [facility] ([place]) Comment on above: Performed By: #### G FR, CBC, CMP, LIPID, ANEU, ADIFF #### [id number] [place], [place] [address] Basophils/100 WBC (Bld) 0.6 % Normal 0.0-2.5 [facility] ([place]) Comment on above: Performed By: #### G FR, CBC, CMP, LIPID, ANEU, ADIFF #### [address] [address] Eosinophil, Absolute 0.1 10 3/mcL Normal 0[facility]0-0.4 [facility] Comment on above: Performed By: #### G FR, CBC, CMP, LIPID, ANEU, ADIFF #### [address] [address] Eosinophils/100 WBC (Bld) 1.0 % Normal 0.0-7.0 [facility] ([place]) Comment on above: Performed By: #### G FR, CBC, CMP, LIPID, ANEU, ADIFF #### [address] [address] Lymphocyte, Absolute 2.2 10 3/mcL Normal 0.8-3.9 [facility] Comment on above: Performed By: #### G FR, CBC, CMP, LIPID, ANEU, ADIFF #### [address] [address] Lymphocytes/100 WBC (Bld) 32.6 % Normal 10.0-50.0 [facility] ([place]) Comment on above: Performed By: #### G FR, CBC, CMP, LIPID, ANEU, ADIFF #### [address] [address] Monocyte, Absolute 0.5 10 3/mcL Normal 0.2-1.0 [facility] ([place]) Comment on above: Performed By: #### G FR, CBC, CMP, LIPID, ANEU, ADIFF #### [address] [address] Monocytes/100 WBC (Bld) 7.4 % Normal 1.7-13.0 [facility] ([place]) Comment on above: Performed By: #### G FR, CBC, CMP, LIPID, ANEU, ADIFF #### [address] [address] Neutrophils/100 WBC (Bld) 58.4 % Normal 37.0-80.0 [facility] ([place]) Comment on above: Performed By: #### G FR, CBC, CMP, LIPID, ANEU, ADIFF #### [address] [address] .GFRon 02-15-2024 GFR Non- 83 ml/min/1.73sqm Normal [facility] ([place]) Comment on above: Result Comment: GFR Population mean for , Non- Americans Ages 20-29 = 116 mL/min/1.73 sq.m. Ages 30-39 = 107 mL/min/1.73 sq.m. Ages 40-49 = 99 mL/min/1.73 sq.m. Ages 50-59 = 93 mL/min/1.73 sq.m. Ages 60-69 = 85 mL/min/1.73 sq.m. Ages 70+ = 75 mL/min/1.73 sq.m. Chronic Kidney Disease: Less than 60 mL/min/1.73 square meters End Stage Renal Disease: Less than 15 mL/min/1.73 square meters Performed By: #### G FR, CBC, CMP, LIPID, ANEU, ADIFF #### [address] [address] GFR 101 ml/min/1.73sqm Normal [facility] ([place]) Comment on above: Result Comment: GFR Population mean for , Non- Americans Ages 20-29 = 116 mL/min/1.73 sq.m. Ages 30-39 = 107 mL/min/1.73 sq.m. Ages 40-49 = 99 mL/min/1.73 sq.m. Ages 50-59 = 93 mL/min/1.73 sq.m. Ages 60-69 = 85 mL/min/1.73 sq.m. Ages 70+ = 75 mL/min/1.73 sq.m. Chronic Kidney Disease: Less than 60 mL/min/1.73 square meters End Stage Renal Disease: Less than 15 mL/min/1.73 square meters Performed By: #### G FR, CBC, CMP, LIPID, ANEU, ADIFF #### [id number] [place], [place] [address] .NEUABSon 02-15-2024 Neutrophil, Absolute 3.9 10 3/mcL Normal 2.9-6.2 [facility] Comment on above: Performed By: #### G FR, CBC, CMP, LIPID, ANEU, ADIFF #### [address] [address] CBCon 02-15-2024 Erythrocyte distribution width (RBC) [Ratio] 13.7 % Normal 11.5-14.5 [facility] ([place]) Comment on above: Performed By: #### G FR, CBC, CMP, LIPID, ANEU, ADIFF #### [id number] Hematocrit (Bld) [Volume fraction] 45.1 % Normal 37.0-47.0 [facility] ([place]) Comment on above: Performed By: #### G FR, CBC, CMP, LIPID, ANEU, ADIFF #### [id number] Hgb 15.5 G/dL Normal 12.0-16.0 [facility] ([place]) Comment on above: Performed By: #### G FR, CBC, CMP, LIPID, ANEU, ADIFF #### [id number] MCH (RBC) [Entitic mass] 30.9 pg Normal 27.0-31.2 [facility] ([place] Comment on above: Performed By: #### G FR, CBC, CMP, LIPID, ANEU, ADIFF #### [place] [address] MCHC 34.4 G/dL Normal 33.0-37.0 [facility] ([place] Comment on above: Performed By: #### G FR, CBC, CMP, LIPID, ANEU, ADIFF #### [place] [address] MCV (RBC) [Entitic vol] 89.8 fL Normal 80.0-94.0 [facility] ([place]) Comment on above: Performed By: #### G FR, CBC, CMP, LIPID, ANEU, ADIFF #### [address] [address] Platelet 199 10 3/mcL Normal 130-400 [facility] ([place]) Comment on above: Performed By: #### G FR, CBC, CMP, LIPID, ANEU, ADIFF #### [address] [address] Platelet mean volume (Bld) [Entitic vol] 9.9 fL Normal 7.4-10.4 [facility] ([place] Comment on above: Performed By: #### G FR, CBC, CMP, LIPID, ANEU, ADIFF #### [address] [address] RBC 5.03 10 6/mcL Normal 4.20-5.40 [facility] ([place] Comment on above: Performed By: #### G FR, CBC, CMP, LIPID, ANEU, ADIFF #### [address] [address] WBC 6.7 10 3/mcL Normal 4.6-10.8 [facility] ([place] Comment on above: Performed By: #### G FR, CBC, CMP, LIPID, ANEU, ADIFF #### [address] [address] CMPon 02-15-2024 Albumin Level 4.3 G/dL Normal 3.4-4.8 [facility] ([place] Comment on above: Performed By: #### G FR, CBC, CMP, LIPID, ANEU, ADIFF #### [address] [address] Albumin/Globulin [Mass ratio] 1.7 {ratio} Normal 1.1-2.5 [facility] ([place]) Comment on above: Performed By: #### G FR, CBC, CMP, LIPID, ANEU, ADIFF #### [address] [address] ALP [Catalytic activity/Vol] 100 U/L Normal 40-135 [facility] ([place] Comment on above: Performed By: #### G FR, CBC, CMP, LIPID, ANEU, ADIFF #### [address] [address] ALT [Catalytic activity/Vol] 26 U/L Normal 14-59 [facility] ([place] Comment on above: Performed By: #### G FR, CBC, CMP, LIPID, ANEU, ADIFF #### [address] [address] AST [Catalytic activity/Vol] 15 U/L Normal 10-40 [facility] ([place] Comment on above: Performed By: #### G FR, CBC, CMP, LIPID, ANEU, ADIFF #### [address] [address] Bili Total 0.5 mg/dL Normal 0.2-1.0 [facility] ([place]) Comment on above: Result Comment: Use of this assay is not recommended for patients undergoing treatment with eltrombopag due to the potential for falsely elevated results. Performed By: #### G FR, CBC, CMP, LIPID, ANEU, ADIFF #### [address] [address] BUN/Creatinine Ratio 23 ratio Normal 7-27 [facility] ([place]) Comment on above: Performed By: #### G FR, CBC, CMP, LIPID, ANEU, ADIFF #### [address] [address] Calcium [Mass/Vol] 9.5 mg/dL Normal 8.4-10.2 [facility] ([place]) Comment on above: Performed By: #### G FR, CBC, CMP, LIPID, ANEU, ADIFF #### [address] [address] Chloride [Moles/Vol] 103 mmol/L Normal 98-107 [facility] ([place]) Comment on above: Performed By: #### G FR, CBC, CMP, LIPID, ANEU, ADIFF #### [address] [address] CO2 [Moles/Vol] 30 mmol/L Normal 23-31 [facility] ([place]) Comment on above: Performed By: #### G FR, CBC, CMP, LIPID, ANEU, ADIFF #### [address] [address] Creatinine [Mass/Vol] 0.71 mg/dL Normal 0.55-1.02 [facility] ([place]) Comment on above: Performed By: #### G FR, CBC, CMP, LIPID, ANEU, ADIFF #### [address] [address] Electrolyte Balance 9.0 mEq/L Normal 4.0-15.0 [facility] ([place]) Comment on above: Performed By: #### G FR, CBC, CMP, LIPID, ANEU, ADIFF #### [address] [address] Globulin 2.6 G/dL Normal [facility] ([place]) Comment on above: Performed By: #### G FR, CBC, CMP, LIPID, ANEU, ADIFF #### [address] [address] Glucose [Mass/Vol] 98 mg/dL Normal 80-115 [facility] ([place]) Comment on above: Performed By: #### G FR, CBC, CMP, LIPID, ANEU, ADIFF #### [address] [address] Potassium [Moles/Vol] 5.0 mmol/L Normal 3.5-5.1 [facility] ([place]) Comment on above: Performed By: #### G FR, CBC, CMP, LIPID, ANEU, ADIFF #### [address] [address] Sodium [Moles/Vol] 142 mmol/L Normal 136-145 [facility] ([place]) Comment on above: Performed By: #### G FR, CBC, CMP, LIPID, ANEU, ADIFF #### [address] [address] Total Protein 6.9 G/dL Normal 6.4-8.2 [facility] ([place]) Comment on above: Performed By: #### G FR, CBC, CMP, LIPID, ANEU, ADIFF #### [address] [address] Urea nitrogen [Mass/Vol] 16 mg/dL Normal 7-18 [facility] ([place]) Comment on above: Performed By: #### G FR, CBC, CMP, LIPID, ANEU, ADIFF #### [facility] [address] [place], [place] [address] LABORATORYOrdered By: Deuce Dickerson on 02-15-2024 Albumin DL <= 20 mg/L (U) [Mass/Vol] mcg/dL Invalid Interpretation Code AO ADM SS Albumin/Creatinine DL <= 20 mg/L (U) [Mass ratio] Unable to Calculate Invalid Interpretation Code 0 - 30 AO ADM SS Comment on above: Result Comment: Unab le to calculate this test result accurately. Results used to calculate this test are outside the reportable range. Creatinine (U) [Mass/Vol] 14.7 mg/dL Low 28.0 - 117.0 mg/dL AO ADM SS Cholesterol [Mass/Vol] 161 mg/dL Normal 0 - 2 00 mg/dL AO ADM SS Comment on above: Interpretive Data: C holesterol Reference Interval: Less than 200 Desirable 200-239 Borderline high risk 240 and above High risk Cholesterol in HDL [Mass/Vol] 47 mg/dL Normal 40 - 60 mg/dL AO ADM SS Cholesterol in LDL [Mass/Vol] 96 mg/dL Normal 0 - 130 mg/dL AO ADM SS Triglyceride [Mass/Vol] 91 mg/dL Normal 0 - 150 mg/dL AO ADM SS Comment on above: Interpretive Data: T riglyceride Reference Interval: Less than 150 Normal 150-199 Borderline high risk 200-499 High risk 500 or higher Very high risk LABORATORYOrdered By: SYSTEM SYSTEM on 02-15-2024 Albumin BCP dye [Mass/Vol] 4.3 G/dL Normal 3.4 - 4.8 G/dL AO ADM SS Albumin/Globulin [Mass ratio] 1.7 {ratio} Normal 1.1 - 2.5 ratio AO ADM SS ALP [Catalytic activity/Vol] 100 U/L Normal 40 - 135 U/L AO ADM SS ALT With P-5'-P [Catalytic activity/Vol] 26 U/L Normal 14 - 59 U/L AO ADM SS AST With P-5'-P [Catalytic activity/Vol] 15 U/L Normal 10 - 40 U/L AO ADM SS Basophil, Absolute 0.0 103/mcL Normal 0.0 - 0.2 10^3/mcL AO Workflow SS Basophils/100 WBC (Bld) 0.6 % Normal 0.0 - 2.5 % AO Workflow SS Bilirubin [Mass/Vol] 0.5 mg/dL Normal 0.2 - 1 .0 mg/dL AO ADM SS Comment on above: Interpretive Data: U se of this assay is not recommended for patients undergoing treatment with eltrombopag due to the potential for falsely elevated results. Calcium [Mass/Vol] 9.5 mg/dL Normal 8.4 - 10. 2 mg/dL AO ADM SS Chloride [Moles/Vol] 103 mmol/L Normal 98 - 10 7 mmol/L AO ADM SS CO2 [Moles/Vol] 30 mmol/L Normal 23 - 31 mmol/L AO ADM SS Creatinine [Mass/Vol] 0.71 mg/dL Normal 0.55 - 1.02 mg/dL AO ADM SS Electrolyte Balance 9.0 mEq/L Normal 4.0 - 15 .0 mEq/L AO ADM SS Eosinophil, Absolute 0.1 103/mcL Normal 0.0 - 0 .4 10^3/mcL AO Workflow SS Eosinophils/100 WBC (Bld) 1.0 % Normal 0.0 - 7.0 % AO Workflow SS Erythrocyte distribution width (RBC) [Ratio] 13.7 % Normal 11.5 - 14.5 % AO Workflow SS GFR/1.73 sq M.predicted among blacks MDRD (S/P/Bld) [Vol rate/Area] 101 ml/min/1.73sqm Invalid Interpretation Code AO Chemistry S Comment on above: Interpretive Data: GFR Population mean for , Non- Americans Ages 20-29 = 116 mL/min/1.73 sq.m. Ages 30-39 = 107 mL/min/1.73 sq.m. Ages 40-49 = 99 mL/min/1.73 sq.m. Ages 50-59 = 93 mL/min/1.73 sq.m. Ages 60-69 = 85 mL/min/1.73 sq.m. Ages 70+ = 75 mL/min/1.73 sq.m. Chronic Kidney Disease: Less than 60 mL/min/1.73 square meters End Stage Renal Disease: Less than 15 mL/min/1.73 square meters GFR/1.73 sq M.predicted among non-blacks MDRD (S/P/Bld) [Vol rate/Area] 83 ml/min/1.73sqm Invalid Interpretation Code AO Chemistry S Comment on above: Interpretive Data: GFR Population mean for , Non- Americans Ages 20-29 = 116 mL/min/1.73 sq.m. Ages 30-39 = 107 mL/min/1.73 sq.m. Ages 40-49 = 99 mL/min/1.73 sq.m. Ages 50-59 = 93 mL/min/1.73 sq.m. Ages 60-69 = 85 mL/min/1.73 sq.m. Ages 70+ = 75 mL/min/1.73 sq.m. Chronic Kidney Disease: Less than 60 mL/min/1.73 square meters End Stage Renal Disease: Less than 15 mL/min/1.73 square meters Globulin 2.6 G/dL Invalid Interpretation Code AO ADM SS Glucose [Mass/Vol] 98 mg/dL Normal 80 - 115 mg/dL AO ADM SS Hematocrit (Bld) [Volume fraction] 45.1 % Normal 37.0 - 47.0 % AO Workflow SS Hemoglobin (Bld) [Mass/Vol] 15.5 G/dL Normal 12.0 - 16.0 G/dL AO Workflow SS Lymphocyte, Absolute 2.2 103/mcL Normal 0.8 - 3 .9 10^3/mcL AO Workflow SS Lymphocytes/100 WBC (Bld) 32.6 % Normal 10.0 - 50.0 % AO Workflow SS MCH (RBC) [Entitic mass] 30.9 pg Normal 27. 0 - 31.2 pg AO Workflow SS MCHC 34.4 G/dL Normal 33.0 - 37.0 G/dL AO Workflow SS MCV (RBC) [Entitic vol] 89.8 fL Normal 80.0 - 94.0 fL AO Workflow SS Monocyte, Absolute 0.5 103/mcL Normal 0.2 - 1.0 10^3/mcL AO Workflow SS Monocytes/100 WBC (Bld) 7.4 % Normal 1.7 - 13.0 % AO Workflow SS Neutrophil, Absolute 3.9 103/mcL Normal 2.9 - 6 .2 10^3/mcL AO Workflow SS Neutrophils/100 WBC (Bld) 58.4 % Normal 37.0 - 80.0 % AO Workflow SS Platelet mean volume (Bld) [Entitic vol] 9.9 fL Normal 7.4 - 10.4 fL AO Workflow SS Platelets (Bld) [#/Vol] 199 103/mcL Normal 130 - 400 10^3/mcL AO Workflow SS Potassium [Moles/Vol] 5.0 mmol/L Normal 3.5 - 5.1 mmol/L AO ADM SS Protein [Mass/Vol] 6.9 G/dL Normal 6.4 - 8.2 G/dL AO ADM SS RBC (Bld) [#/Vol] 5.03 106/mcL Normal 4.20 - 5.40 10^6/mcL AO Workflow SS Sodium [Moles/Vol] 142 mmol/L Normal 136 - 145 mmol/L AO ADM SS Urea nitrogen [Mass/Vol] 16 mg/dL Normal 7 - 18 mg/dL AO ADM SS Urea nitrogen/Creatinine [Mass ratio] 23 ratio Normal 7 - 27 ratio AO ADM SS WBC (Bld) [#/Vol] 6.7 103/mcL Normal 4.6 - 10.8 10^3/mcL AO Workflow SS LIPIDon 02-15-2024 Cholesterol [Mass/Vol] 161 mg/dL Normal 0-[facility] Comment on above: Result Comment: Chol esterol Reference Interval: Less than 200 Desirable 200-239 Borderline high risk 240 and above High risk Performed By: #### G FR, CBC, CMP, LIPID, ANEU, ADIFF #### [address] [address] Cholesterol in HDL [Mass/Vol] 47 mg/dL Normal 40-60 [facility] ([place]) Comment on above: Performed By: #### G FR, CBC, CMP, LIPID, ANEU, ADIFF #### [id number] [place], [place] [address] Cholesterol in LDL [Mass/Vol] 96 mg/dL Normal 0-130 [facility] ([place]) Comment on above: Performed By: #### G FR, CBC, CMP, LIPID, ANEU, ADIFF #### [id number] [place], [place] [address] Triglyceride [Mass/Vol] 91 mg/dL Normal 0-150 [facility] ([place]) Comment on above: Result Comment: Trig lyceride Reference Interval: Less than 150 Normal 150-199 Borderline high risk 200-499 High risk 500 or higher Very high risk Performed By: #### G FR, CBC, CMP, LIPID, ANEU, ADIFF #### [facility] [id number] [place], [place] [address] MALBRon 02-15-2024 U Creatinine 14.7 mg/dL Low 28.0-117.0 [facility] ([place]) Comment on above: Performed By: #### M ALBR #### [facility] [id number] [place], [place] [address] U Microalb <130 Normal [facility] ([place]) Comment on above: Performed By: #### M ALBR #### [facility] [address] [address] U Ratio Alb/Cre Unable to Calculate Normal 0-30 [facility] ([place]) Comment on above: Result Comment: Unab le to calculate this test result accurately. Results used to calculate this test are outside the reportable range. Performed By: #### M ALBR #### [facility] [address] [address] CNOVon 01-16-2024 CNOV Office Visit (MMAS ) ----- PURVI ARANA ([id number]) 1960 F Date Time Provider Department 01/16/24 8:15 AM THADDEUS BURCIAGA [facility] During your visit today, we recorded the following information about you: Temperature Pulse Respiration Blood pressure 98.1 degrees 90/minute 16/minute 160/82 Weight 90.3 kg Thaddeus Burciaga, SUPERVISOR [employer]ING.BUSHING PRESS OPERATOR 01/16/2024 9:03 AM Signed Purvi Englandwillie is a 63 year old female who presents with Cough (Sore throat started sun with a headache) Patient starts started with a headache on Sunday then this progressed on Sunday to include sore throat congestion cough and bodyaches. Patient denies known fever however she does state she goes between chills and sweats. Patient states daughter is also ill and presented here yesterday and was treated for bronchitis. Patient does have a history of asthma and also often develops bronchitis. Denies any nausea, vomiting, diarrhea with this. Cough Associated symptoms include chills, headaches, sore throat and myalgias. Pertinent negatives include no chest pain, no ear pain, no shortness of breath and no wheezing. History reviewed. No pertinent past medical history. There is no problem list on file for this patient. Current Outpatient Medications Medication Sig Dispense Refill metroNIDAZOLE (METROGEL) 0.75 % Topical Gel cholecalciferol, vitamin D3, (VITAMIN D3 ORAL) Take 1,000 mg by mouth once daily. vit A/vit C/vit E/zinc/copper (ICAPS AREDS ORAL) Take by mouth once daily. Take once a day albuterol HFA (PROVENTIL HFA, VENTOLIN HFA) 90 mcg/actuation inhaler albuterol sulfate HFA 90 mcg/actuation aerosol inhaler ALPRAZolam (XANAX) 0.25 mg tablet alprazolam 0.25 mg tablet TAKE 1 TABLET BY MOUTH EVERY DAY FOR 30 DAYS NEEDED FOR ANXIETY amLODIPine (NORVASC) 2.5 mg tablet amlodipine 2.5 mg tablet TAKE 1 TABLET BY MOUTH EVERY DAY aspirin, enteric coated (ASPIRIN, ENTERIC COATED) 81 mg EC tablet Papito Low Dose Aspirin 81 mg tablet,delayed release take 1 tablet (81MG) by oral route every day atorvastatin (LIPITOR) 80 mg tablet atorvastatin 80 mg tablet TAKE 1 TABLET BY MOUTH AT BEDTIME clobetasol (TEMOVATE) 0.05 % ointment cyanocobalamin (VITAMIN B-12) 1,000 mcg tab Vitamin B-12 1,000 mcg tablet take 1 by Oral route every day with food ezetimibe (ZETIA) 10 mg tablet Take 10 mg by mouth once daily. losartan-hydroCHLOROthiaz diallo (HYZAAR) 50-12.5 mg per tablet losartan 50 mg-hydrochlorothiazide 12.5 mg tablet TAKE 1 TABLET BY MOUTH EVERY DAY minocycline (MINOCIN, DYNACIN) 100 mg capsule minocycline 100 mg capsule TAKE 1 CAPSULE BY MOUTH EVERY DAY nitroglycerin sublingual (NITROQUICK) 0.4 mg SL tablet nitroglycerin 0.[address] 1 TABLET UNDER TONGUE EVERY 5 MINS, UP TO 3 DOSES NEEDED FOR CHEST PAIN pantoprazole DR (PROTONIX) 40 mg tablet pantoprazole 40 mg tablet,delayed release INCRUSE ELLIPTA 62.5 mcg/actuation inhaler INHALE 1 PUFF EVERY DAY Brompheniramine-Pseudoeph -DM (BROMFED DM) 2-30-10 mg/5 mL syrup Take 10 mL by mouth four times a day as needed (Cold Symptoms). (Patient not taking: Reported on 01/16/2024) 200 mL 0 azithromycin (ZITHROMAX) 250 mg tablet 2 po day 1 then one po daily days 2-5 Patient should start on December 04, 2023. (Patient not taking: Reported on 01/16/2024) 6 tablet 0 Biotin 1 mg tab Dose : 1,000 mcg = 1 tab(s), Oral, qDay, # 30 tab(s), 0 Refill(s) (Patient not taking: Reported on 12/01/2023) No current facility-administered medications for this visit. Social History Tobacco Use Smoking status: Every Day Packs/day: .5 Types: Cigarettes Passive exposure: Current Smokeless tobacco: Never Vaping Use Vaping Use: Never used Substance Use Topics Alcohol use: Never Drug use: Never Alcohol Use: Never Tobacco Use: 0.5 packs/day Types: Cigarettes History reviewed. No pertinent family history. Review of Systems Constitutional: Positive for chills, diaphoresis and malaise/fatigue. Negative for fever. HENT: Positive for congestion, sinus pain and sore throat. Negative for ear pain. Eyes: Negative. Respiratory: Positive for cough and sputum production. Negative for hemoptysis, shortness of breath and wheezing. Cardiovascular: Negative for chest pain and palpitations. Gastrointestinal: Negative for abdominal pain, nausea and vomiting. Genitourinary: Negative. Musculoskeletal: Positive for myalgias. Skin: Negative. Neurological: Positive for headaches. BP 160/82 Pulse 90 Temp 98.1 Resp 16 Wt 199 lb (90.3kg) SpO2 97% Physical Exam Vitals and nursing note reviewed. Constitutional: Appearance: Normal appearance. She is ill-appearing. HENT: Right Ear: Tympanic membrane is retracted. Left Ear: Tympanic membrane is retracted. Nose: Congestion and rhinorrhea present. Mouth/Throat: Mouth: Mucous membranes are moist. Pharynx: Oropharynx is cl (more content not included)... Normal [facility] FLUAV+FLUBV Ag Ql (Unsp spec )on 01-16-2024 FLUAV+FLUBV Ag IA Ql (Unsp spec) Negative for Influenza A and B Protein Antigens by EIA - Note: Negative findings may not exclude infection with influeza A or B. Results should be used in conjunction with clinical findings. Negative for Influenza A and B Protein Antigens by EIA [facility] FLUAV+FLUBV Ag IA Ql (Unsp spec) Negative for Influenza A and B Protein Antigens by EIA - Note: Negative findings may not exclude infection with influeza A or B. Results should be used in conjunction with clinical findings. Normal Negative for Influenza A and B Protein Antigens by EIA [facility] Comment on above: Order Comment: Speci men Type: SPECIMEN FROM NASOPHARYNGEAL STRUCTURE Ordering Facility: [facility] Address: [address] [place] [address] Performed By: #### 2 [id number] #### [facility] CLIA [id number] [id number] [place] [address] [facility] CNOVon 12-01-2023 CNOV Office Visit (MMAS ) ----- PURVI ARANA ([id number]) 1960 F Date Time Provider Department 12/01/23 9:30 AM [facility] During your visit today, we recorded the following information about you: Temperature Pulse Respiration Blood pressure 98.5 degrees 99/minute 18/minute 135/82 Weight 93 kg Henry Steve APRN.BUSHING PRESS OPERATOR 12/01/2023 10:16 AM Signed Purvi Englandwillie is a 63 year old female who presents with Fever (Started 4 days aog /), Mass (Lumps on Neck (possibly lymph node?) /Started 4 days ago /), Muscle Aches (Started 4 days ago /), Headache (Started 4 days ago /), Neck Pain (Started 4 days ago /), Derm Problem (On back on neck and chest /Sometimes itches /Started 3 days ago /), and Sore Throat (Started 2-3 days ago /) Purvi is a 63-year-old female who presents today with sore throat, body aches, headache, fever and chills. States that her symptoms started on Sunday evening. She states that her she saw her primary care doctor on Sunday and was told she had a viral upper respiratory infection. States she was instructed to take Tylenol. States she was also written off work for the rest of the week. She states that this morning she is still not feeling well. She does not feel like she will be able to go to work on Sunday. No new symptoms. No difficulty breathing, chest pain or shortness of breath. States she still feels body aches all over. States she took 2 home COVID tests which were negative. Is declining COVID, flu and RSV swab today. No other complaints. History reviewed. No pertinent past medical history. There is no problem list on file for this patient. Current Outpatient Medications Medication Sig Dispense Refill metroNIDAZOLE (METROGEL) 0.75 % Topical Gel cholecalciferol, vitamin D3, (VITAMIN D3 ORAL) Take 1,000 mg by mouth once daily. vit A/vit C/vit E/zinc/copper (ICAPS AREDS ORAL) Take by mouth once daily. Take once a day albuterol HFA (PROVENTIL HFA, VENTOLIN HFA) 90 mcg/actuation inhaler albuterol sulfate HFA 90 mcg/actuation aerosol inhaler ALPRAZolam (XANAX) 0.25 mg tablet alprazolam 0.25 mg tablet TAKE 1 TABLET BY MOUTH EVERY DAY FOR 30 DAYS NEEDED FOR ANXIETY amLODIPine (NORVASC) 2.5 mg tablet amlodipine 2.5 mg tablet TAKE 1 TABLET BY MOUTH EVERY DAY aspirin, enteric coated (ASPIRIN, ENTERIC COATED) 81 mg EC tablet Papito Low Dose Aspirin 81 mg tablet,delayed release take 1 tablet (81MG) by oral route every day atorvastatin (LIPITOR) 80 mg tablet atorvastatin 80 mg tablet TAKE 1 TABLET BY MOUTH AT BEDTIME clobetasol (TEMOVATE) 0.05 % ointment cyanocobalamin (VITAMIN B-12) 1,000 mcg tab Vitamin B-12 1,000 mcg tablet take 1 by Oral route every day with food ezetimibe (ZETIA) 10 mg tablet Take 10 mg by mouth once daily. losartan-hydroCHLOROthiaz diallo (HYZAAR) 50-12.5 mg per tablet losartan 50 mg-hydrochlorothiazide 12.5 mg tablet TAKE 1 TABLET BY MOUTH EVERY DAY minocycline (MINOCIN, DYNACIN) 100 mg capsule minocycline 100 mg capsule TAKE 1 CAPSULE BY MOUTH EVERY DAY nitroglycerin sublingual (NITROQUICK) 0.4 mg SL tablet nitroglycerin 0.[address] 1 TABLET UNDER TONGUE EVERY 5 MINS, UP TO 3 DOSES NEEDED FOR CHEST PAIN pantoprazole DR (PROTONIX) 40 mg tablet pantoprazole 40 mg tablet,delayed release INCRUSE ELLIPTA 62.5 mcg/actuation inhaler INHALE 1 PUFF EVERY DAY Brompheniramine-Pseudoeph -DM (BROMFED DM) 2-30-10 mg/5 mL syrup Take 10 mL by mouth four times a day as needed (Cold Symptoms). 200 mL 0 [START ON 12/04/2023] azithromycin (ZITHROMAX) 250 mg tablet 2 po day 1 then one po daily days 2-5 Patient should start on December 04, 2023. 6 tablet 0 Biotin 1 mg tab Dose : 1,000 mcg = 1 tab(s), Oral, qDay, # 30 tab(s), 0 Refill(s) (Patient not taking: Reported on 12/01/2023) No current facility-administered medications for this visit. Social History Tobacco Use Smoking status: Every Day Packs/day: .5 Types: Cigarettes Passive exposure: Current Smokeless tobacco: Never Vaping Use Vaping Use: Never used Substance Use Topics Alcohol use: Never Drug use: Never Alcohol Use: Never Tobacco Use: 0.5 packs/day Types: Cigarettes History reviewed. No pertinent family history. Review of Systems Constitutional: Positive for chills, fever and malaise/fatigue. HENT: Positive for congestion and sore throat. Negative for ear pain and sinus pain. Eyes: Negative. Respiratory: Positive for cough. Negative for sputum production, shortness of breath and wheezing. Cardiovascular: Negative for chest pain and palpitations. Gastrointestinal: Negative for abdominal pain, nausea and vomiting. Musculoskeletal: Positive for myalgias and neck pain. Negative for back pain. Skin: Small area on back of neck that is scabbed and slightly itchy. Neurological: Positive for headaches. Negative for dizziness. BP 135/82 Pulse 99 T (more content not included)... Normal [facility] No Panel Informationon 03-09 Culture Urine 10,000 - 50,000 cfu/ ml Mixed growth consistent with normal urogenital laurie. [facility] Work Phone: LABORATORYOrdered By: SYSTEM SYSTEM on 02-07-2023 Albumin BCP dye [Mass/Vol] 4.6 G/dL Invalid Interpretation Code 3.4 - 4.8 G/dL AO ADM SS Albumin/Globulin [Mass ratio] 1.7 {ratio} Invalid Interpretation Code 1.1 - 2.5 ratio AO ADM SS ALP [Catalytic activity/Vol] 106 U/L Invalid Interpretation Code 40 - 135 U/L AO ADM SS ALT With P-5'-P [Catalytic activity/Vol] 29 U/L Invalid Interpretation Code 14 - 59 U/L AO ADM SS AST With P-5'-P [Catalytic activity/Vol] 16 U/L Invalid Interpretation Code 10 - 40 U/L AO ADM SS Bilirubin [Mass/Vol] 0.5 mg/dL Invalid Interpretation Code 0.2 - 1.0 mg/dL AO ADM SS Calcium [Mass/Vol] 10.2 mg/dL Invalid Interpretation Code 8.4 - 10.2 mg/dL AO ADM SS Chloride [Moles/Vol] 99 mmol/L Invalid Interpretation Code 98 - 107 mmol/L AO ADM SS CO2 [Moles/Vol] 29 mmol/L Invalid Interpretation Code 23 - 31 mmol/L AO ADM SS Creatinine [Mass/Vol] 0.55 mg/dL Invalid Interpretation Code 0.55 - 1.02 mg/dL AO ADM SS Electrolyte Balance 10.0 mEq/L Invalid Interpretation Code 4.0 - 15.0 mEq/L AO ADM SS GFR/1.73 sq M.predicted among blacks MDRD (S/P/Bld) [Vol rate/Area] 136 ml/min/1.73sqm Invalid Interpretation Code AO Chemistry S GFR/1.73 sq M.predicted among non-blacks MDRD (S/P/Bld) [Vol rate/Area] 112 ml/min/1.73sqm Invalid Interpretation Code AO Chemistry S Globulin 2.7 G/dL Invalid Interpretation Code AO ADM SS Glucose [Mass/Vol] 95 mg/dL Invalid Interpretation Code 80 - 115 mg/dL AO ADM SS Potassium [Moles/Vol] 5.2 mmol/L Invalid Interpretation Code 3.5 - 5.1 mmol/L AO ADM SS Protein [Mass/Vol] 7.3 G/dL Invalid Interpretation Code 6.4 - 8.2 G/dL AO ADM SS Sodium [Moles/Vol] 138 mmol/L Invalid Interpretation Code 136 - 145 mmol/L AO ADM SS Urea nitrogen [Mass/Vol] 10 mg/dL Invalid Interpretation Code 7 - 18 mg/dL AO ADM SS Urea nitrogen/Creatinine [Mass ratio] 18 ratio Invalid Interpretation Code 7 - 27 ratio AO ADM SS LABORATORYOrdered By: Denton Harris on 02-07-2023 Basophil, Absolute 0.0 103/mcL Invalid Interpretation Code 0.0 - 0.2 10^3/mcL AO Workflow SS Basophils/100 WBC (Bld) 0.8 % Invalid Interpretation Code 0.0 - 2.5 % AO Workflow SS Eosinophil, Absolute 0.1 103/mcL Invalid Interpretation Code 0.0 - 0.4 10^3/mcL AO Workflow SS Eosinophils/100 WBC (Bld) 0.9 % Invalid Interpretation Code 0.0 - 7.0 % AO Workflow SS Erythrocyte distribution width (RBC) [Ratio] 13.3 % Invalid Interpretation Code 11.5 - 14.5 % AO Workflow SS Hematocrit (Bld) [Volume fraction] 47.0 % Invalid Interpretation Code 37.0 - 47.0 % AO Workflow SS Hemoglobin (Bld) [Mass/Vol] 15.6 G/dL Invalid Interpretation Code 12.0 - 16.0 G/dL AO Workflow SS Lymphocyte, Absolute 2.1 103/mcL Invalid Interpretation Code 0.8 - 3.9 10^3/mcL AO Workflow SS Lymphocytes/100 WBC (Bld) 35.7 % Invalid Interpretation Code 10.0 - 50.0 % AO Workflow SS MCH (RBC) [Entitic mass] 30.1 pg Invalid Interpretation Code 27.0 - 31.2 pg AO Workflow SS MCHC 33.1 G/dL Invalid Interpretation Code 33.0 - 37.0 G/dL AO Workflow SS MCV (RBC) [Entitic vol] 90.8 fL Invalid Interpretation Code 80.0 - 94.0 fL AO Workflow SS Monocyte, Absolute 0.4 103/mcL Invalid Interpretation Code 0.2 - 1.0 10^3/mcL AO Workflow SS Monocytes/100 WBC (Bld) 6.5 % Invalid Interpretation Code 1.7 - 13.0 % AO Workflow SS Neutrophil, Absolute 3.3 103/mcL Invalid Interpretation Code 2.9 - 6.2 10^3/mcL AO Workflow SS Neutrophils/100 WBC (Bld) 56.1 % Invalid Interpretation Code 37.0 - 80.0 % AO Workflow SS Platelet mean volume (Bld) [Entitic vol] 9.5 fL Invalid Interpretation Code 7.4 - 10.4 fL AO Workflow SS Platelets (Bld) [#/Vol] 219 103/mcL Invalid Interpretation Code 130 - 400 10^3/mcL AO Workflow SS RBC (Bld) [#/Vol] 5.18 106/mcL Invalid Interpretation Code 4.20 - 5.40 10^6/mcL AO Workflow SS WBC (Bld) [#/Vol] 5.8 103/mcL Invalid Interpretation Code 4.6 - 10.8 10^3/mcL AO Workflow SS LABORATORYOrdered By: Pura Yoo on 02-07-2023 Cholesterol [Mass/Vol] 169 mg/dL Invalid Interpretation Code 0 - 200 mg/dL AO ADM SS Cholesterol in HDL [Mass/Vol] 49 mg/dL Invalid Interpretation Code 40 - 60 mg/dL AO ADM SS Cholesterol in LDL [Mass/Vol] 108 mg/dL Invalid Interpretation Code 0 - 130 mg/dL AO ADM SS Triglyceride [Mass/Vol] 62 mg/dL Invalid Interpretation Code 0 - 150 mg/dL AO ADM SS MSCon 03-03-2022 [facility] REPORT Normal [facility] [place] OF SERVICE: 03/03/2022 REASON FOR VISIT: Rash. HISTORY OF PRESENT ILLNESS: This is a 61-year-old female presenting with a rash which is going on for the last 3 weeks. The patient stated that it started after she was raking and cleaning around her fence. She had a rash from poison maryam in the past. For the last 3 weeks, she has been using [id number] products, but it is not helping. The itching is increasing. No respiratory difficulty. No other problem at this visit. REVIEW OF OTHER SYSTEMS: Normal. PAST MEDICAL HISTORY/FAMILY HISTORY/SOCIAL HISTORY: Reviewed. ALLERGIES: PENICILLIN, CODEINE, SPIRIVA, CAFFEINE. MEDICATION LIST: Reviewed. PHYSICAL EXAMINATION: She is awake, alert, not in distress. No dyspnea. Temperature 97.8, blood pressure 145/75, pulse 110, respirations 19, pulse oximetry 97% on room air. Pain score 0 out of 10. HEENT: Unremarkable. Chest: Clear to auscultate. Heart: Regular rate and rhythm. Examination of the skin: She has multiple areas of urticarial-like rash spread around her trunk and [facility] PATIENT NAME: PURVI ARANA [address] [place] MEDICAL REC #: [id number] [place] [address] [facility] REPORT STATCARE PHYSICIAN both upper and lower extremities. There are no blusters or pustules, no skin excoriation. ASSESSMENT: Plant Contact dermatitis. PLAN: Clinical findings were discussed with the patient in detail. I explained to her this is most likely due to some plants she was exposed to while she was cleaning her fence. I gave her Solu-Medrol 125 mg IM and prescribed her a Medrol Dosepak as directed, 1 pack with no refills, to start tomorrow. She can continue to use Benadryl and use calamine lotion. She should follow up with her doctor for further evaluation and care. Patient understands and agrees. Lashon Marcano MD [id number] [facility] File#: [id number] END OF DOCUMENT / CHANGE LOG FOLLOWS Last Edited By Karen. Signed By Lashon Marcano MD #PAWPR Lashon Marcano MD #PAWPR [facility] PATIENT NAME: TAYLORPURVI [address] MEDICAL REC #: [id number] [place] [address] [facility] REPORT [facility]CARE PHYSICIAN on 03/03/2022 10:29 ET on 03/03/2022 10:29 ET Revision Number - 2 Verified/Reviewed by 03/03/22 1029 [address] [facility] PATIENT NAME: MIKAELA ARANAJUAN R ShortJose Jojo [place] MEDICAL REC #: [id number] [place] [address] [facility] REPORT [facility]CARE PHYSICIAN Normal [facility] LABORATORYOrdered By: Deuce Buckley on 02-10-2022 Albumin DL <= 20 mg/L (U) [Mass/Vol] 280 mcg/dL Invalid Interpretation Code AO ADM SS Albumin/Creatinine DL <= 20 mg/L (U) [Mass ratio] 8 mcg/mg Invalid Interpretation Code 0 - 30 mcg/mg AO ADM SS Creatinine (U) [Mass/Vol] 33.4 mg/dL Invalid Interpretation Code 28.0 - 117.0 mg/dL AO ADM SS Albumin BCP dye [Mass/Vol] 4.2 G/dL Invalid Interpretation Code 3.4 - 4.8 G/dL AO ADM SS Albumin/Globulin [Mass ratio] 1.4 {ratio} Invalid Interpretation Code 1.1 - 2.5 ratio AO ADM SS ALP [Catalytic activity/Vol] 86 U/L Invalid Interpretation Code 40 - 135 U/L AO ADM SS ALT With P-5'-P [Catalytic activity/Vol] 36 U/L Invalid Interpretation Code 14 - 59 U/L AO ADM SS AST With P-5'-P [Catalytic activity/Vol] 15 U/L Invalid Interpretation Code 10 - 40 U/L AO ADM SS Bilirubin [Mass/Vol] 0.4 mg/dL Invalid Interpretation Code 0.2 - 1.0 mg/dL AO ADM SS Calcium [Mass/Vol] 9.9 mg/dL Invalid Interpretation Code 8.4 - 10.2 mg/dL AO ADM SS Chloride [Moles/Vol] 100 mmol/L Invalid Interpretation Code 98 - 107 mmol/L AO ADM SS Cholesterol [Mass/Vol] 166 mg/dL Invalid Interpretation Code 0 - 200 mg/dL AO ADM SS Cholesterol in HDL [Mass/Vol] 43 mg/dL Invalid Interpretation Code 40 - 60 mg/dL AO ADM SS Cholesterol in LDL [Mass/Vol] 93 mg/dL Invalid Interpretation Code 0 - 130 mg/dL AO ADM SS CO2 [Moles/Vol] 29 mmol/L Invalid Interpretation Code 23 - 31 mmol/L AO ADM SS Creatinine [Mass/Vol] 0.63 mg/dL Invalid Interpretation Code 0.55 - 1.02 mg/dL AO ADM SS Electrolyte Balance 9.0 mEq/L Invalid Interpretation Code 4.0 - 15.0 mEq/L AO ADM SS Globulin 3.0 G/dL Invalid Interpretation Code AO ADM SS Glucose [Mass/Vol] 90 mg/dL Invalid Interpretation Code 80 - 115 mg/dL AO ADM SS Potassium [Moles/Vol] 5.0 mmol/L Invalid Interpretation Code 3.5 - 5.1 mmol/L AO ADM SS Protein [Mass/Vol] 7.2 G/dL Invalid Interpretation Code 6.4 - 8.2 G/dL AO ADM SS Sodium [Moles/Vol] 138 mmol/L Invalid Interpretation Code 136 - 145 mmol/L AO ADM SS Triglyceride [Mass/Vol] 151 mg/dL Invalid Interpretation Code 0 - 150 mg/dL AO ADM SS Urea nitrogen [Mass/Vol] 15 mg/dL Invalid Interpretation Code 7 - 18 mg/dL AO ADM SS Urea nitrogen/Creatinine [Mass ratio] 24 ratio Invalid Interpretation Code 7 - 27 ratio AO ADM SS LABORATORYOrdered By: SYSTEM SYSTEM on 02-10-2022 GFR 117 ml/min/1.73sqm Invalid Interpretation Code AO Chemistry S GFR Non- 96 ml/min/1.73sqm Inval id Interpretation Code AO Chemistry S LABORATORYOrdered By: Kaet Coelho on 12-04-2021 Basophil, Absolute 0.10 103/mcL Invalid Interpretation Code 0.00 - 0.19 10^3/mcL AO Auto Heme SS Basophils/100 WBC (Bld) 0.5 % Invalid Interpretation Code 0.0 - 2.5 % AO Auto Heme SS Calcium [Mass/Vol] 8.2 mg/dL Invalid Interpretation Code 8.4 - 10.2 mg/dL AO ADM SS Chloride [Moles/Vol] 107 mmol/L Invalid Interpretation Code 98 - 107 mmol/L AO ADM SS CO2 [Moles/Vol] 28 mmol/L Invalid Interpretation Code 23 - 31 mmol/L AO ADM SS Creatinine [Mass/Vol] 1.28 mg/dL Invalid Interpretation Code 0.55 - 1.02 mg/dL AO ADM SS Electrolyte Balance 7.0 mEq/L Invalid Interpretation Code 4.0 - 15.0 mEq/L AO ADM SS Eosinophil, Absolute 0.10 103/mcL Invalid Interpretation Code 0.00 - 0.40 10^3/mcL AO Auto Heme SS Eosinophils/100 WBC (Bld) 0.7 % Invalid Interpretation Code 0.0 - 7.0 % AO Auto Heme SS Erythrocyte distribution width (RBC) [Ratio] 14.1 % Invalid Interpretation Code 11.5 - 14.5 % AO Auto Heme SS ESR 15 minute reading (Bld) [Velocity] 3 mm/hr Invalid Interpretation Code 0 - 30 mm/hr AO Man Heme SS Glucose [Mass/Vol] 134 mg/dL Invalid Interpretation Code 80 - 115 mg/dL AO ADM SS Hematocrit (Bld) [Volume fraction] 40.9 % Invalid Interpretation Code 37.0 - 47.0 % AO Auto Heme SS Hemoglobin (Bld) [Mass/Vol] 13.8 G/dL Invalid Interpretation Code 12.0 - 16.0 G/dL AO Auto Heme SS Lymphocyte, Absolute 2.80 103/mcL Invalid Interpretation Code 0.77 - 3.85 10^3/mcL AO Auto Heme SS Lymphocytes/100 WBC (Bld) 24.6 % Invalid Interpretation Code 10.0 - 50.0 % AO Auto Heme SS MCH (RBC) [Entitic mass] 30.2 pg Invalid Interpretation Code 27.0 - 31.2 pg AO Auto Heme SS MCHC (RBC) [Mass/Vol] 33.6 G/dL Invalid Interpretation Code 33.0 - 37.0 G/dL AO Auto Heme SS MCV (RBC) [Entitic vol] 89.7 fL Invalid Interpretation Code 80.0 - 94.0 fL AO Auto Heme SS Monocyte, Absolute 0.60 103/mcL Invalid Interpretation Code 0.15 - 1.00 10^3/mcL AO Auto Heme SS Monocytes/100 WBC (Bld) 5.6 % Invalid Interpretation Code 1.7 - 13.0 % AO Auto Heme SS Neutrophil, Absolute 7.90 103/mcL Invalid Interpretation Code 2.85 - 6.16 10^3/mcL AO Auto Heme SS Neutrophils/100 WBC (Bld) 68.6 % Invalid Interpretation Code 37.0 - 80.0 % AO Auto Heme SS Platelet mean volume (Bld) [Entitic vol] 8.0 fL Invalid Interpretation Code 7.4 - 10.4 fL AO Auto Heme SS Platelets (Bld) [#/Vol] 213 103/mcL Invalid Interpretation Code 130 - 400 10^3/mcL AO Auto Heme SS Potassium [Moles/Vol] 4.0 mmol/L Invalid Interpretation Code 3.5 - 5.1 mmol/L AO ADM SS RBC (Bld) [#/Vol] 4.56 106/mcL Invalid Interpretation Code 4.20 - 5.40 10^6/mcL AO Auto Heme SS Sodium [Moles/Vol] 142 mmol/L Invalid Interpretation Code 136 - 145 mmol/L AO ADM SS Urea nitrogen [Mass/Vol] 24 mg/dL Invalid Interpretation Code 7 - 18 mg/dL AO ADM SS Urea nitrogen/Creatinine [Mass ratio] 19 ratio Invalid Interpretation Code 7 - 27 ratio AO ADM SS WBC (Bld) [#/Vol] 11.50 103/mcL Invalid Interpretation Code 4.60 - 10.80 10^3/mcL AO Auto Heme SS LABORATORYOrdered By: SYSTEM SYSTEM on 12-04-2021 GFR 52 ml/min/1.73sqm Invalid Interpretation Code AO Chemistry S GFR Non- 43 ml/min/1.73sqm Inval id Interpretation Code AO Chemistry S Office Visit: screening c-sc opeon 07-25-2017 Documentation of current medications (procedure) Done Invalid Interpretation Code [facility] [employer] Work Phone: Fall risk assessment No Invalid Interpretation Code [facility] [employer] Work Phone: Protein mass conc Done Invalid Interpretation Code [facility] [employer] Work Phone: Protein mass conc yes Invalid Interpretation Code [facility] [employer] Work Phone: Smoking cessation education (procedure) yes Invalid Interpretation Code [facility] [employer] Work Phone: Tobacco smoking status NHIS Current every day smoker Invalid Interpretation Code [facility] [employer] Work Phone: Tobacco use CPHS Current every day smoker Invali d Interpretation Code [facility] [employer] Work Phone: Vital Signs Date Time Vital Sign Value Performing Clinician Facility 07-07-2025 11:47-0400 Body height 167.[address] Stefan Malik DO Work Phone: [facility] 07-07-2025 11:47-0400 Body weight 102.[address] Stefan Malik DO Work Phone: [facility] 07-07-2025 11:47-0400 Heart rate 110 /min Dr. Stefan Malik DO Work Phone: [facility] 07-07-2025 11:47-0400 SaO2% (BldA) [Mass fraction] 96 % Dr. Stefan Malik DO Work Phone: [facility] 07-01-2025 11:06-0400 Body height 167.[address] Stefan Malik DO Work Phone: [facility] 07-01-2025 11:06-0400 Body mass index (BMI) [Ratio] 37.5 kg/m2 Dr. Stefan Malik DO Work Phone: [facility] 07-01-2025 11:06-0400 Body temperature 97.3 [degF] Dr. Stefan Malik DO Work Phone: [facility] 07-01-2025 11:06-0400 Body weight 105.[address] Stefan Malik DO Work Phone: [facility] 07-01-2025 11:06-0400 Diastolic blood pressure 80 mm[Hg] Dr. Stefan Malik DO Work Phone: [facility] 07-01-2025 11:06-0400 Heart rate 94 /min Dr. Stefan Malik DO Work Phone: [facility] 07-01-2025 11:06-0400 Respiratory rate 18 /min Dr. Stefan Malik DO Work Phone: [facility] 07-01-2025 11:06-0400 SaO2% (BldA) [Mass fraction] 97 % Dr. Stefan Malik DO Work Phone: [facility] 07-01-2025 11:06-0400 Systolic blood pressure 147 mm[Hg] Dr. Stefan Malik DO Work Phone: [facility] 11-28-2024 23:28-0500 Diastolic Blood Pressure Non-Invasive 74 mm[Hg] DR SAIGE RESENDEZ MD [facility] 11-28-2024 23:28-0500 Heart rate 89 /min DR SAIGE RESENDEZ MD [facility] 11-28-2024 23:28-0500 Respiratory rate 20 /min DR SAIGE RESENDEZ MD [facility] 11-28-2024 23:28-0500 Systolic Blood Pressure Non-Invasive 130 mm[Hg] DR SAIGE RESENDEZ MD [facility] 11-28-2024 20:13-0500 Body temperature 98.24 [degF] DR SAIGE RESENDEZ MD [facility] 11-28-2024 20:13-0500 Body weight [address] SAIGE RESENDEZ MD [facility] 11-28-2024 20:13-0500 Diastolic Blood Pressure Non-Invasive 75 mm[Hg] DR SAIGE RESENDEZ MD [facility] 11-28-2024 20:13-0500 Heart rate 109 /min DR SAIGE RESENDEZ MD [facility] 11-28-2024 20:13-0500 Respiratory rate 20 /min DR SAIGE RESENDEZ MD [facility] 11-28-2024 20:13-0500 Systolic Blood Pressure Non-Invasive 133 mm[Hg] DR SAIGE RESENDEZ MD [facility] 11-24-2024 15:49-0500 Body temperature 99.39 [degF] Honey Brody SUPERVISOR DRYING AND WINDING.BUSHING PRESS OPERATOR Work Phone: [facility] 11-24-2024 15:49-0500 Body weight 104.69 kg Honey Brody SUPERVISOR DRYING AND WINDING.BUSHING PRESS OPERATOR Work Phone: [facility] 11-24-2024 15:49-0500 Diastolic blood pressure 85 mm[Hg] Honey Brody SUPERVISOR DRYING AND WINDING.BUSHING PRESS OPERATOR Work Phone: [facility] 11-24-2024 15:49-0500 Heart rate 89 /min Honey Brody SUPERVISOR DRYING AND WINDING.BUSHING PRESS OPERATOR Work Phone: [facility] 11-24-2024 15:49-0500 Respiratory rate 16 /min Honey Brody SUPERVISOR DRYING AND WINDING.BUSHING PRESS OPERATOR Work Phone: [facility] 11-24-2024 15:49-0500 SaO2% (BldA) [Mass fraction] 98 % Honey Brody SUPERVISOR DRYING AND WINDING.BUSHING PRESS OPERATOR Work Phone: [facility] 11-24-2024 15:49-0500 Systolic blood pressure 147 mm[Hg] Honey Brody SUPERVISOR DRYING AND WINDING.BUSHING PRESS OPERATOR Work Phone: [facility] 05-21-2024 10:29-0400 Diastolic Blood Pressure Non-Invasive 81 mm[Hg] TONJA HANCOCK MD [facility] 05-21-2024 10:29-0400 Systolic Blood Pressure Non-Invasive 148 mm[Hg] TONJA HANCOCK MD [facility] 05-21-2024 10:09-0400 Blood Pressure Cuff Size TONJA HANCOCK MD [facility] 05-21-2024 10:09-0400 Blood Pressure Location TONJA HANCOCK MD [facility] 05-21-2024 10:09-0400 Blood Pressure Method TONJA HANCOCK MD [facility] 05-21-2024 10:09-0400 Body temperature 98.78 [degF] TONJA HANCOCK MD [facility] 05-21-2024 10:09-0400 Diastolic Blood Pressure Non-Invasive 91 mm[Hg] TONJA HANCOCK MD [facility] 05-21-2024 10:09-0400 Heart rate 104 /min TONJA HANCOCK MD [facility] 05-21-2024 10:09-0400 Respiratory rate 18 /min TONJA HANCOCK MD [facility] 05-21-2024 10:09-0400 Systolic Blood Pressure Non-Invasive 171 mm[Hg] TONJA HANCOCK MD [facility] 01-16-2024 08:19-0400 Body temperature 98.1 [degF] Thaddeus Burciaga SUPERVISOR DRYING AND WINDING.BUSHING PRESS OPERATOR Work Phone: [facility] 01-16-2024 08:19-0400 Body weight 90.27 kg Thaddeuswan Burciaga SUPERVISOR DRYING AND WINDING.BUSHING PRESS OPERATOR Work Phone: [facility] 01-16-2024 08:19-0400 Diastolic blood pressure 82 mm[Hg] Thaddeus Burciaga SUPERVISOR DRYING AND WINDING.BUSHING PRESS OPERATOR Work Phone: [facility] 01-16-2024 08:19-0400 Heart rate 90 /min Thaddeus Burciaga SUPERVISOR DRYING AND WINDING.BUSHING PRESS OPERATOR Work Phone: [facility] 01-16-2024 08:19-0400 Respiratory rate 16 /min Thaddeus Burciaga SUPERVISOR DRYING AND WINDING.BUSHING PRESS OPERATOR Work Phone: [facility] 01-16-2024 08:19-0400 SaO2% (BldA) [Mass fraction] 97 % Thaddeus Burciaga APRN.BUSHING PRESS OPERATOR Work Phone: [facility] 01-16-2024 08:19-0400 Systolic blood pressure 160 mm[Hg] Thaddeuswan Burciaga SUPERVISOR DRYING AND WINDING.BUSHING PRESS OPERATOR Work Phone: [facility] 09-25-2022 16:06-0500 Body temperature 99.19 [degF] Kamar Flowerston PA-C Work Phone: [facility] 09-25-2022 16:06-0500 Body weight 83.46 kg Kamar Downs PA-C Work Phone: [facility] 09-25-2022 16:06-0500 Diastolic blood pressure 75 mm[Hg] Kamar Flowerston PA-C Work Phone: [facility] 09-25-2022 16:06-0500 Heart rate 88 /min Kamar Flowerston PA-C Work Phone: [facility] 09-25-2022 16:06-0500 Respiratory rate 16 /min Kamar Flowerston PA-C Work Phone: [facility] 09-25-2022 16:06-0500 SaO2% (BldA) [Mass fraction] 97 % Kamar Yareli PA-C Work Phone: [facility] 09-25-2022 16:06-0500 Systolic blood pressure 153 mm[Hg] Kamar Flowersbutch PA-C Work Phone: [facility] 12-04-2021 20:54-0500 Diastolic blood pressure 73 mm[Hg] DR NANCY COSME MD [facility] 12-04-2021 20:54-0500 Heart rate 101 /min DR NANCY COSME MD [facility] 12-04-2021 20:54-0500 Respiratory rate 20 /min DR NANCY COSME MD [facility] 12-04-2021 20:54-0500 Systolic blood pressure 137 mm[Hg] DR NANCY COSME MD [facility] 12-04-2021 18:45-0500 Body temperature 98.78 [degF] DR NANCY COSME MD [facility] 12-04-2021 18:45-0500 Body weight 83.[address] NANCY COSME MD [facility] 12-04-2021 18:45-0500 Diastolic blood pressure 76 mm[Hg] DR NANCY COSME MD [facility] 12-04-2021 18:45-0500 Heart rate 112 /min DR NANCY COSME MD [facility] 12-04-2021 18:45-0500 Respiratory rate 18 /min DR NANCY COSME MD [facility] 12-04-2021 18:45-0500 Systolic blood pressure 130 mm[Hg] DR NANCY COSME MD [facility] 07-25-2017 13:26-0400 BMI (Body Mass Index) 35.8 kg/m2 [facility] Work Phone: 07-25-2017 13:26-0400 Body Temperature 98 [degF] [facility] Work Phone: 07-25-2017 13:26-0400 BP Diastolic 83 mm[Hg] [facility] Work Phone: 07-25-2017 13:26-0400 BP Systolic 144 mm[Hg] [facility] Work Phone: 07-25-2017 13:26-[address] [facility] Work Phone: 07-25-2017 13:26-0400 Pulse (Heart Rate) 79 /min [facility] Work Phone: 07-25-2017 13:26-0400 Respiratory Rate 18 /min [facility] Work Phone: 07-25-2017 13:26-[address] [facility] Work Phone: Encounters Encounter Date Encounter Type Care Provider Facility Start: 08-07-2025 ambulatory Stefan Malik Facility: [facility] Start: 07-20-2025 ambulatory [facility] Facility: [facility] Start: 07-20-2025 End: 07-20-2025 ambulatory Kyle Doreen Facility[facility] Start: 07-17-2025 End: 07-17-2025 ambulatory STEFAN MALIK Facility:[facility] Start: 07-17-2025 End: 07-17-2025 Patient encounter procedure JURGEN MORRELL SUPERVISOR DRYING AND WINDING-BUSHING PRESS OPERATOR [facility] Start: 07-10-2025 ambulatory [facility] Facility:[facility] Start: 07-09-2025 ambulatory Jake Grimes Facility:[facility] [place] Start: 07-09-2025 Non-patient / Non-visit Dr. Jake woodall DO -[facility] Start: 07-08-2025 End: 07-12-2025 ambulatory JURGEN MORRELL SUPERVISOR DRYING AND WINDING-BUSHING PRESS OPERATOR Facility:[facility] Start: 07-08-2025 End: 07-12-2025 Outreach Lab JURGEN MORRELL SUPERVISOR DRYING AND WINDING-BUSHING PRESS OPERATOR [facility] Start: 07-07-[address] Jake Grimes DO -Pulmonary Services/Neurology Work Phone: Start: 07-07-2025 End: 07-07-2025 ambulatory Jake Grimes Facility:[facility] Start: 07-01-2025 End: 07-01-[address] Stefan Malik DO Work Phone: -Laboratory Start: 07-01-2025 End: 07-01-[address] Jake Grimes DO -Laboratory Work Phone: Start: 07-01-2025 End: 07-01-[address] Jake Grimes DO -[facility] Work Phone: Start: 07-01-2025 End: 07-01-[address] Stefan Malik DO Work Phone: -[facility] Start: 07-01-2025 End: 07-01-2025 ambulatory Stefan Malik Facility:[facility] Start: 05-13-2025 End: 05-13-2025 ambulatory [facility]EFAN MALIK DO [facility] Start: 05-13-2025 End: 05-13-2025 Patient encounter procedure STEFAN MALIK DO [facility] Start: 04-07-2025 End: 04-07-2025 ambulatory STEFAN Kenya MALIK DO Facility:[facility] [place] Start: 04-07-2025 End: 04-07-2025 Patient encounter procedure DK SPARKS SUPERVISOR DRYING AND WINDING-BUSHING PRESS OPERATOR [facility] Start: 03-25-2025 End: 03-25-2025 ambulatory STEFAN MALIK DO Facility:[facility] [place] Start: 03-25-2025 End: 03-25-2025 Patient encounter procedure STEFAN Kenya MALIK DO [facility] Start: 02-17-2025 End: 04-01-2025 ambulatory STEFAN Kenya MALIK DO Facility:[facility] Start: 01-27-2025 End: 01-27-2025 ambulatory KYLE LOGAN DO Facility:[facility] Start: 12-13-2024 End: 12-13-2024 ambulatory KYLE LOGAN DO Facility:[facility] [place] Start: 12-13-2024 End: 12-13-[address] MARCUS FREEMAN DO [facility] Start: 11-28-2024 End: 11-28-2024 Emergency department patient visit DR SAIGE RESENDEZ MD [facility] Start: 11-27-2024 End: 11-27-2024 ambulatory KYLE LOGAN DO Facility:[facility] [place] Start: 11-27-2024 End: 11-27-2024 Patient encounter procedure KYLE LOGAN DO [facility] Start: 11-24-2024 End: 11-24-2024 ambulatory KYLE LOGAN Facility:[id number] Start: 11-24-2024 End: 11-24-2024 Patient encounter procedure Honey Hudson SUPERVISOR DRYING AND WINDING.BUSHING PRESS OPERATOR Work Phone: [facility] [employer] Comment on above: Muscle spasm of righ t shoulder (Primary Dx) Start: 06-04-2024 End: 06-04-2024 ambulatory KYLE LOGAN DO Facility:[facility] Start: 05-21-2024 End: 05-21-2024 Emergency department patient visit TONJA HANCOCK MD [facility] Start: 02-15-2024 End: 02-15-2024 ambulatory GREGORY RÍOS SUPERVISOR DRYING AND WINDING-BUSHING PRESS OPERATOR Facility:[facility] Start: 02-15-2024 End: 02-15-2024 Patient encounter procedure GREGORY RÍOS SUPERVISOR DRYING AND WINDING-BUSHING PRESS OPERATOR [facility] Start: 01-16-2024 End: 01-16-2024 Patient encounter procedure Thaddeus Burciaga SUPERVISOR DRYING AND WINDING.BUSHING PRESS OPERATOR Work Phone: [facility] Comment on above: Viral illness (Prima ry Dx); Acute non-recurrent frontal sinusitis Start: 01-16-2024 End: 01-16-2024 ambulatory SELF Facility:[id number] Start: 12-01-2023 End: 12-01-2023 ambulatory SELF Facility:[id number] Start: 06-13-2023 End: 06-13-2023 Patient encounter procedure KYLE HAMRIVER ALTMAN [facility] Start: 03-09-2023 End: 03-13-2023 Outreach Lab JACINDA HOOVER SUPERVISOR DRYING AND WINDING-BUSHING PRESS OPERATOR [facility] Start: 02-07-2023 End: 02-07-2023 Patient encounter procedure KYLE LOGAN DO [facility] Start: 02-07-2023 End: 02-07-2023 Well adult monitoring check done KYLE LOGAN DO [facility] Start: 10-05-2022 End: 10-05-2022 Patient encounter procedure JACINDA HOOVER SUPERVISOR DRYING AND WINDING-BUSHING PRESS OPERATOR [facility] Start: 10-04-2022 End: 10-04-2022 Patient encounter procedure KYLE LOGAN DO [facility] Start: 09-27-2022 Telephone encounter Lindsey Ochoa Jaxson DO Work Phone: [facility] Comment on above: Results (Respo negat corey ) Start: 09-25-2022 End: 09-25-2022 Office outpatient visit 15 minutes Kamar Liu-Marii) Yareli TERRELL Work Phone: [facility] Comment on above: Acute cough (Primary Dx); Viral upper respiratory tract infection Start: 03-03-2022 End: 03-03-2022 Patient encounter procedure [facility] Start: 03-03-2022 Progress Note Lashon Marcano MD Work Phone[facility] Start: 03-03-2022 End: 03-03-2022 Subsequent hospital visit by physician Lashon Marcano Work Phone: [facility] Comment on above: RASH Start: 02-10-2022 End: 02-10-2022 Patient encounter procedure KYLE LOGAN DO [facility] Start: 12-04-2021 End: 12-04-2021 Emergency department patient visit DR NANCY COSME MD [facility] Start: 11-18-2021 End: 11-18-2021 Patient encounter procedure MONTRELL FRYE SUPERVISOR DRYING AND WINDING-BUSHING PRESS OPERATOR [facility] Start: 09-19-2021 End: 09-23-2021 Outreach Lab JACINDA HOOVER SUPERVISOR DRYING AND WINDING-BUSHING PRESS OPERATOR [facility] Start: 09-07-2021 End: 09-07-2021 Patient encounter procedure KYLE LOGAN DO [facility] Procedures Date Procedure Procedure Detail Performing Clinician Start: 07-01-[address] Stefan Malik DO Work Phone: Start: 07-01-[address] Stefan Malik DO Work Phone: Start: 07-01-[address] Cyndee Malik DO Work Phone: Comment on above: The atypical pANCA p attern has been observed in asignificant percentage of patients with ulcerative colitis,primary sclerosing cholangitis and autoimmune hepatitis. Start: 07-01-[address] Trell Malik DO Work Phone: Start: 07-01-[address] Daniela Malik DO Work Phone: Start: 07-01-2025 [place] RASHomar Malik DO Work Phone: Start: 07-01-[address] Stefan Malik DO Work Phone: Start: 07-01-2025 Common silver birch RAST Dr. Stefan Malik DO Work Phone: Start: 07-01-2025 House dust mite (Df) RAST Dr. Stefan Malik DO Work Phone: Start: 07-01-2025 Mouse urine proteins RAST Dr. Stefan Malik DO Work Phone: Start: 07-01-[address] Trell Malik DO Work Phone: Start: 07-01-2025 Penicillium chrysoge num MEL Malik DO Work Phone: Start: 07-01-2025 Guinean thistle MEL Malik DO Work Phone: Start: 07-01-2025 Tree pollen MEL Malik DO Work Phone: Start: 07-01-2025 [place] pollen MEL Malik DO Work Phone: Start: 01-16-2024 [place] influenza Eil darien Burciaga SUPERVISOR DRYING AND WINDING.BUSHING PRESS OPERATOR Work Phone: Start: 07-25-2017 Screening for malign ant neoplasm of colon Screening, colon cancer Nia Montoya Start: 10-29-2007 Decompression of med jeremías nerve KYLE LEY DO Comment on above: Right Start: 10-29-2001 Dilation and curetta ge of uterus KYLE LEY DO Start: 10-29-2001 Ligation of fallopia n tube KYLE DOREEN DO Start: 10-29-1994 section KYLE DOREEN History of cataract extraction History of cataract surgery STEFAN QUIROGAINS DO Plan of Treatment Date Care Activity Detail Author Start: 2036 RSV Vaccine (1 - 1-d ose 75+ series) RSV Vaccine (1 - 1-dose 75+ series) [facility] Start: 11-05-2027 Urine microalbumin profile DTaP,Tdap,Td Vaccine (3 - Td or Tdap) [facility] Start: 08-22-2025 Screening for malign ant neoplasm of colon [facility] Start: 07-10-2025 Measurement of respiratory function [facility] Start: 06-29-2024 Covid-19 Vaccine ( season) Covid-19 Vaccine ( season) [facility] Start: 06-29-2024 Influenza vaccination Influenza Vacc ine (#1) [facility] Start: 10-29-2023 Depression Assessment Depression Ass essment [facility] Start: 06-29-2023 Covid-19 Vaccine ( season) Covid-19 Vaccine ( season) [facility] Start: 06-29-2023 Influenza vaccination Influenza Vacc ine (#1) [facility] Start: 09-25-2022 End: 11-25-2022 Respiratory pathogens DNA and RNA 12b panel - Unspecified specimen by DANAE with probe detection [facility] Work Phone: Comment on above: Expected: 09/25/2022 , Expires: 11/25/2022 Start: 06-29-2022 Influenza vaccination INFLUENZA (#1) [facility] Start: 10-29-2021 DEPRESSION ASSESSMENT DEPRESSION ASS ESSMENT [facility] Start: 2021 RSV Vaccine (1 - 1-d ose 60+ series) RSV Vaccine (1 - 1-dose 60+ series) [facility] Start: 08-15-2017 End: 08-15-2017 Appointment Appointment [facility] [employer] Work Phone: Start: 07-25-2017 End: 07-25-2017 Colonoscopy flx dx w/collj spec when pfrmd Colonoscopy [facility] [employer] Work Phone: Start: 07-25-2017 End: 07-25-2017 Appointment Appointment [facility] [employer] Work Phone: Start: 07-25-2017 End: 07-25-2017 Diagnostic colonoscopy Colonoscopy [facility] [employer] Work Phone: Start: 10-29-2015 Pneumococcal vaccination Pneum ococcal Vaccine (2 of 2 - PCV) [facility] Start: 2011 SHINGRIX VACCINE (1 of 2) SHINGRIX VACCINE (1 of 2) [facility] Start: 2006 COLOGUARD (FIT-DNA) COLOGUARD (FIT-D NA) [facility] Start: 2006 Colonoscopy COLONOSCOPY [facility] Start: 2006 COLORECTAL CANCER SCREENING COLORECTAL CANCER SCREENING [facility] Start: [address] [facility] Start: 2006 DIABETES SCREEN DIABETES SCREEN [facility] Start: 2006 Diabetes Screening Diabetes Screenin g [facility] Start: 2006 FECAL OCCULT BLOOD FECAL OCCULT BLOO D [facility] Start: 2006 Lipid panel Lipid Screening [facility] Start: 2006 LIPID SCREEN LIPID SCREEN [facility] Start: 2006 Screening for malign ant neoplasm of colon [facility] Start: 2006 SIGMOIDOSCOPY SIGMOIDOSCOPY [facility] Start: 2001 Mammography MAMMOGRAM [facility] Start: 2001 Screening for malign ant neoplasm of breast Mammogram Screening [facility] Start: 1991 HPV TESTING HPV TESTING [facility] Start: 1991 Screening for malign ant neoplasm of cervix HPV Testing [facility] Start: 1982 PAP TESTING PAP TESTING [facility] Start: 1982 Screening for malign ant neoplasm of cervix [facility] Start: 1980 Urine microalbumin profile DTAP,TDAP,TD (1 - Tdap) [facility] [facility] Start: 1979 Anxiety Screening Anxiety Screening [facility] Start: 1979 Depression Screening Depression Scre ening [facility] Start: 1979 HEPATITIS C SCREENING HEPATITIS C [facility] Start: 1979 Hepatitis C screening Hepatitis C Sc [facility] Start: 1979 HIV SCREENING HIV SCREENING [facility] Start: 1979 HIV screening HIV Screening [facility] Start: 1967 PNEUMOCOCCAL (1 - PCV) PNEUMOCOCCAL (1 - PCV) [facility] Start: 1961 COVID-19 VACCINE (#1) COVID-19 VACCI NE (#1) [facility] CBC W Auto Different ial panel - Blood [facility] CT Chest WO contrast [facility] IgE [Units/volume] i n Serum or Plasma [facility] Measurement of respiratory function [facility] Walking distance 6 minutes [facility] Immunizations Immunization Date Immunization Notes Care Provider Fa gisele 05-14-2024 Pneumococcal conjuga te PCV20, polysaccharide AIB380 conjugate, adjuvant, PF; Translations: [Prevnar 20] TONJA HANCOCK MD [facility] [place] 11-05-2017 tetanus toxoid, redu ramesh diphtheria toxoid, and acellular pertussis vaccine, adsorbed TONJA HANCOCK MD [facility] [place] 10-29-2014 pneumococcal polysaccharide vaccine, 23 valent TONJA HANCOCK MD [facility] [place] 08-10-2014 pneumococcal polysaccharide vaccine, 23 valmarshall HANCOCK MD [facility] [place] 08-10-2014 tetanus toxoid, redu ramesh diphtheria toxoid, and acellular pertussis vaccine, adsorbed TONJA HANCOCK MD [facility] Payers Date Payer Category Payer Self-pay 2019 Medicaid [id number] 2017 Unknown [id number] 2016 Unknown [id number] 1961 Unknown [id number] 2.16.8 40.1.232496.3.579.2. 1961 Unknown [id number] 2.16.8 40.1.971858.3.579.2. 1961 Unknown [id number] 2.16.8 40.1.038337.3.579.2. 1961 Unknown [id number] 2.16. 840.1.868901.3.579.2.62 1961 Unknown [id number] 2.16.8 40.1.255470.3.579.2.62 1961 Unknown [id number] 2.16. 840.1.734913.3.579.2.62 1961 Unknown [id number] 2.16. 840.1.185338.3.579.2.627 1961 Unknown [id number] 2.16. 840.1.923384.3.579.2.627 1961 Unknown [id number] 2.16. 840.1.614201.3.579.2.627 1961 Unknown [id number] 2.16. 840.1.039101.3.579.2.627 1961 Unknown [id number] 2.16.8 40.1.721529.3.579.2.627 1961 Unknown [id number] 2.16.8 40.1.597589.3.579.2.627 1961 Unknown [id number] 2.16.8 40.1.904563.3.579.2.627 1961 Unknown [id number] 2.16.8 40.1.922215.3.579.2.627 Unknown [id number] 2.16.8 40.1.089482.3.579.2.462 Unknown [id number] 2.16.8 40.1.503622.3.579.2.462 Unknown [id number] 2.16.8 40.1.503479.3.579.2.462 Unknown [id number] 2.16.8 40.1.708385.3.579.2.462 Unknown [id number] 2.16.8 40.1.950374.3.579.2.462 Unknown [id number] 2.16.8 40.1.650744.3.579.2.462 Unknown [id number] 2.16.8 40.1.897875.3.579.2.462 Unknown [id number] 2.16.8 40.1.646513.3.579.2.462 Social History Date Type Detail Facility Start: 07-09-2019 End: 07-08-2025 Heavy tobacco smoker (finding) [facility] Start: 1960 Sex Assigned At [facility] Start: 1960 Sex Assigned At Not on file [facility] Start: 09-25-2022 Tobacco smoking stat [facility] Occasional tobacco smoker [facility] History of tobacco use Cigarette Smoker C [facility] Start: 09-25-2022 End: 11-24-2024 Tobacco use and exposure Smokeless tobacco non-user [facility] Start: 09-15-2022 End: 09-25-2022 Exposure to SARS-CoV-2 (event) Not sure [facility] Start: 12-01-2023 End: 07-01-2025 Tobacco smoking status KYIS Smokes tobacco daily [facility] Start: 09-25-2022 End: 12-01-2023 Cigarettes smoked current (pack per day) - Reported 0.5 [facility] History of tobacco use Passive smoker [facility] Start: 01-16-2024 End: 11-24-2024 Alcohol intake Lifetime non-drinker (finding) [facility] Start: 09-25-2022 End: 01-16-2024 Tobacco use panel [facility] Adult Depression Screening Assessment 0 [facility] Sexual O[facility]: 01-01-2020 Sex Female (finding) [facility] Functional Status Date Assessment Result Facility 11-28-2024 Functional Status [facility] 05-21-2024 Functional Status ID band on, Allergy Band on, Call device within reach, Bed in low position, Wheels locked, personal items within reach, Bedside Cart Locked, Visitor at bedside, Safety level maintained [facility] Mental Status Date Assessment Result Facility 11-28-2024 Mental Status Orientation Oriented x 4 [facility] 05-21-2024 Mental Status Oriented x 4 [facility] Clinical Notes 12-04-2021 to 07-01-2025 Note Date & Type Note Facility 07-01-2025 Evaluation note Diagnosis Onset Date Resolution Asthma acute July 01, 2025 10:53am Lung nodule chronic June 10:53am Nicotine dependence, cigarettes, uncomplicated chronic July 01, 025 10:53am Obesity chronic July 01, 2025 10:53am [place] (obstructive sleep apnea) chronic July 01 10:53am [facility] Work Phone: [phone]) 407-445006-10-2025 Note* Exam Date Time Procedure Performing Provider Status 04/07/25 4:10 PM XR Chest 2 Views GETACHEW PIERRE MD; [facility] (Verified) [id number] ORIGINAL EXAMINATION: TWO XRAY VIEWS OF THE CHEST 04/07/2025 4:10 pm COMPARISON: None. HISTORY: ORDERING SYSTEM PROVIDED HISTORY: Reason for Exam: cough FINDINGS: Cardiomediastinal silhouette is within normal limits. There is no overt edema. No focal consolidation. No pleural effusion or pneumothorax. Lower cervical spondylosis. IMPRESSION: No acute cardiopulmonary process. Interpreted by: Getachew Pierer Preliminary Report By: Getachew Pierre Electronically signed By Getachew Pierre Dictated Date: 04/07/2025 4:12:48 PM Prelim Date: 04/07/2025 4:15:15 PM Sign Date: 04/07/2025 4:15:15 PM Ordering Provider: [facility]02-01-2025 Hospital Discharge instructions Patient Education 11/28/2024 23:05:29 Myofascial Pain Syndrome Myofascial Pain Syndrome Your pain is caused by a state of chronic muscle tension. This condition is called by various names: myofascial pain, fibrositis, and trigger point pain. This can also be due to mechanical stress, such as working at a computer terminal for long periods or work that requires repetitive motions of the arms or hands. It can also be caused by emotional stress, such as problems on the job or in your personal life. Sometimes there is no obvious cause. The pain can happen in the area of the muscle spasm or at a site distant to it. For example, spasm of a neck muscle can cause headache. Spasm of the muscle near the shoulder blade can cause pain shooting down the arm. Home care Try to identify the factors that may be causing your problem and change them: oIf you feel that emotional stress is a cause of your pain, learn methods to better deal with the stress in your life. These may include regular exercise, muscle relaxation techniques, meditation, orsimply taking time out for yourself. Talk with your healthcare provider or go to a local bookstore and review the many books and tapes about reducing stress. oIf you feel that physical stress is a cause for your pain, try to change any poor work habits. You may use pmxi-dos-mlxiiol pain medicine to control pain, unless another medicine was prescribed.If you have chronic liver or kidney disease or ever had a stomach ulcer or gastrointestinal bleeding, talk with your healthcare provider before using these medicines. Apply an ice pack over the injured area for 15 to 20 minutes every 3 to 6 hours. You should do thisfor the first 24 to 48 hours. You can make an ice pack by filling a plastic bag that seals at the top with ice cubes and then wrapping it with a thin towel. Be careful not to injure your skin with the ice treatments. Ice should never be applied directly to skin. Continue the use of ice packs for relief of pain and swelling as needed. After 48 hours, apply heat (warm shower or warm bath) for 15 to20 minutes several times a day, or alternate ice and heat. Massage the trigger point and stretch out the muscle. Trigger point massage can be done by applyingheat to the area to warm and prepare the muscle. Then have someone apply steady thumb pressure directly on the knot in the muscle for 30 seconds. Release the pressure, then massage the surrounding muscle. Repeat the process, applying more pressure to the trigger point each time. Do this up to the limit of pain. With each treatment, the trigger point should become less tender and the pain should decrease. You can apply local pressure to trigger points in the back by lying on the floor with a tennis ball under the trigger point. Follow-up care Follow up with your healthcare provider, or as advised. You may need physical therapy if you don t respond to home treatment alone. Call 911 Call 911 if you have: A trigger point in the chest muscles, pain that becomes more severe, lasts longer, or spreads into your shoulder, arm, or jaw Chest pain or discomfort Trouble breathing with or without chest discomfort Sweating, lightheadedness, nausea, or vomiting along with chest discomfort Sudden weakness or numbness in the arm, leg, or face, especially if this happens on one side of thebody When to seek medical advice Call your healthcare provider right away if any of these occur: A week passes and you have not improved If your pain worsens, regardless of its location [id number] [employer]. [address] [place] [address], [place] [address]. All rights reserved. This information is not intended as a substitute for professional medical care. Always follow yourhealthcare professional's instructions. Follow Up Care 11/28/2024 20:03:51 With:KYLE LOGAN DO Address: [address] [place] [phone] When:2-4 days [facility] 01-31-2025 Emergency department Discharge summary Discharge Instructions Thank you for allowing [facility] to assist you with your healthcare needs. The following is importantdischarge information regarding your hospital visit. Diagnosis from Today's Visit Myofascial pain What to Do Next Instructions from Your Care Team Do not take the Xanax or the other muscle relaxants you have at home while taking the Valium. The Valium prescription is to function as a muscle relaxant. No qualifying data available. Post Acute Orders No qualifying data available. You Need to Schedule the Following Appointments Follow Up with KYLE LOGAN DO When:Within 2-4 days Where:[address] [place] [phone] Allergies Contrast dye Nausea, Shaking, Difficulty breathing Novocain Anxiety Spiriva made sick caffeine Tachycardia codeine Difficulty breathing, Rash, Nausea and vomiting penicillins Difficulty breathing, Hives Medications Please ask your primary doctor or pharmacist before taking any other medication not listed, including over the counter drugs, herbal medications, vitamins and or supplements as they may interact withyour home medications. What How Much When Why Instructions Last Dose New diazePAM (Valium 5 mg oral tablet) 1 tab(s) by mouth Four (4) times a day Myofascial pain Duration: 7 Days Printed Prescription New lidocaine topical (Lidoderm 5% topical patch) 1 patch(es) Topical Every day Duration: 10 Days Printed Prescription Unchanged acetaminophen-oxyCODONE (acetaminophen-oxyCODONE 325 mg-5 mg oral tablet) 1 tab(s) by mouth Every 6 hours as needed for for pain Shoulder region pain Neck pain on right side Duration: 7 Days Unchanged acyclovir topical (Zovirax 5% topical cream) 1 application Topical 5 times a day Unchanged albuterol (albuterol MDI (90 mcg/ inh) CFC free inhalation aerosol) 1 puff(s) by inhalation Every 4 hours as needed for as needed for wheezing Unchanged ALPRAZolam (Xanax 0.25 mg oral tablet) 1 tab(s) by mouth Once a day as needed for as needed for anxiety Anxiety Duration: 30 Days Unchanged amLODIPine (amLODIPine 5 mg oral tablet) 1 tab(s) by mouth Once a day Duration: 90 Days Unchanged aspirin (aspirin 81 mg oral delayed release tablet) 1 tab(s) by mouth Once a day Unchanged atorvastatin (Lipitor 80 mg oral tablet) 1 tab(s) by mouth Daily at bedtime Unchanged azelastine nasal (azelastine 137 mcg/ inh (0.1%) nasal spray) 2 spray(s) Intranasal Two (2) times a day Dysfunction of left eustachian tube Unchanged betamethasone topical (betamethasone dipropionate 0.05% topical cream) 1 application Topical Two (2) times a day Dyshidrotic eczema Duration: 14 Days Unchanged calcium-vitamin D (Calcium 600+D oral tablet) by mouth Two (2) times a day Unchanged cholecalciferol (Vitamin D3 125 mcg (5000 intl units) oral capsule) 1 cap by mouth Every day Unchanged clobetasol topical (clobetasol 0.05% topical ointment) 1 application Topical Two (2) times a day Unchanged cyanocobalamin (Vitamin B12 1000 mcg oral tablet) 1 tab(s) by mouth Once a day Duration: 100 Days Unchanged cyclobenzaprine (cyclobenzaprine 5 mg oral tablet) 1 tab(s) by mouth Three (3) times a day Unchanged ezetimibe (ezetimibe 10 mg oral tablet) 1 tab(s) by mouth Once a day Hyperlipidemia Unchanged gabapentin (gabapentin 300 mg oral capsule) 1 cap by mouth Two (2) times a day Pain Duration: 7 Days Unchanged hydrochlorothiazide-losartan (hydrochlorothiazide-losartan 12.5-50 mg oral tablet) 1 tab(s) by mouth Once a day Unchanged methocarbamol (methocarbamol 750 mg oral tablet) 1 tab(s) by mouth Four (4) times a day as needed for Spasm Neck muscle spasm Duration: 10 Days Unchanged metroNIDAZOLE topical (metroNIDAZOLE 0.75% topical gel) 1 application Topical Once a day Unchanged minocycline (minocycline 100 mg oral capsule) 1 cap by mouth Once a day Unchanged multivitamin with minerals (ICaps AREDS 2 oral capsule) 1 cap by mouth Two (2) times a day Unchanged nitroGLYcerin (Nitrostat 0.4 mg sublingual tablet) 1 tab(s) under the tongue Every 5 minutes as needed for for chest pain Unchanged pantoprazole (pantoprazole 40 mg oral enteric coated tablet) 1 tab(s) by mouth Two (2) times a day Unchanged predniSONE (predniSONE 50 mg oral tablet) 1 tab(s) by mouth Once a day Duration: 5 Days Take with food Unchanged pregabalin (pregabalin 100 mg oral capsule) 1 to 2 cap(s) by mouth Three (3) times a day Radiculopathy of arm Duration: 10 Days Unchanged rOPINIRole (rOPINIRole 0.5 mg oral tablet) 1 tab(s) by mouth Once a day Unchanged triamcinolone topical (triamcinolone 0.5% topical cream) 1 application Topical Two (2) times a day Duration: 14 Days Unchanged umeclidinium (Incruse Ellipta 62.5 mcg/ inh inhalation powder) 1 by inhalation Once a day Unchanged venlafaxine (venlafaxine 75 mg oral capsule, extended release) TAKE 1 CAPSULE BY MOUTH ONCE DAILY Please take this list to your next doctor s visit. Bring all medications you take, including over the counter medications, herbals and other supplements with you to your doctor s visit. Patients and families are reminded to discard old lists and to update any records with all medication providers or retail pharmacies. Education Materials Myofascial Pain Syndrome Your pain is caused by a state of chronic muscle tension. This condition is called by various names: myofascial pain, fibrositis, and trigger point pain. This can also be due to mechanical stress, such as working at a computer terminal for long periods or work that requires repetitive motions of the arms or hands. It can also be caused by emotional stress, such as problems on the job or in your personal life. Sometimes there is no obvious cause. The pain can happen in the area of the muscle spasm or at a site distant to it. For example, spasm of a neck muscle can cause headache. Spasm of the muscle near the shoulder blade can cause pain shooting down the arm. Home care Try to identify the factors that may be causing your problem and change them: oIf you feel that emotional stress is a cause of your pain, learn methods to better deal with the stress in your life. These may include regular exercise, muscle relaxation techniques, meditation, orsimply taking time out for yourself. Talk with your healthcare provider or go to a local bookstore and review the many books and tapes about reducing stress. oIf you feel that physical stress is a cause for your pain, try to change any poor work habits. You may use cqbs-yrc-xdlkekh pain medicine to control pain, unless another medicine was prescribed.If you have chronic liver or kidney disease or ever had a stomach ulcer or gastrointestinal bleeding, talk with your healthcare provider before using these medicines. Apply an ice pack over the injured area for 15 to 20 minutes every 3 to 6 hours. You should do thisfor the first 24 to 48 hours. You can make an ice pack by filling a plastic bag that seals at the top with ice cubes and then wrapping it with a thin towel. Be careful not to injure your skin with the ice treatments. Ice should never be applied directly to skin. Continue the use of ice packs for relief of pain and swelling as needed. After 48 hours, apply heat (warm shower or warm bath) for 15 to20 minutes several times a day, or alternate ice and heat. Massage the trigger point and stretch out the muscle. Trigger point massage can be done by applyingheat to the area to warm and prepare the muscle. Then have someone apply steady thumb pressure directly on the knot in the muscle for 30 seconds. Release the pressure, then massage the surrounding muscle. Repeat the process, applying more pressure to the trigger point each time. Do this up to the limit of pain. With each treatment, the trigger point should become less tender and the pain should decrease. You can apply local pressure to trigger points in the back by lying on the floor with a tennis ball under the trigger point. Follow-up care Follow up with your healthcare provider, or as advised. You may need physical therapy if you don t respond to home treatment alone. Call 911 Call 911 if you have: A trigger point in the chest muscles, pain that becomes more severe, lasts longer, or spreads into your shoulder, arm, or jaw Chest pain or discomfort Trouble breathing with or without chest discomfort Sweating, lightheadedness, nausea, or vomiting along with chest discomfort Sudden weakness or numbness in the arm, leg, or face, especially if this happens on one side of thebody When to seek medical advice Call your healthcare provider right away if any of these occur: A week passes and you have not improved If your pain worsens, regardless of its location [phone] [employer]. [address] [place] [address]. All rights reserved. This information is not intended as a substitute for professional medical care. Always follow yourhealthcare professional's instructions. Additional Information VACCINATE! IT SAVES LIVES! Members of the community who have not yet received the COVID-19 vaccine and would like to receive it can visit one of [facility] vaccine clinics. There are many vaccine clinic locations within the [facility]. For locations and available times, please visit [email or web address].[email or web address]/. It is important to note that some COVID mobile vaccine clinics are held outdoors and may be canceled in rainy or stormy conditions. To learn more about pediatric vaccinations (ages 5-11), we invite you to visit the [facility] webpage. [email or web address]/[email or web address] [email or web address] learn more about the COVID-19 vaccine, we invite you to visit the CDC website for a list of frequently asked questions. https://www.cdc.gov/coronavirus/2019-ncov/vaccines/faq.html [facility] Patient Portal Access Instructions: Stay connected with your healthcare team and access your personal medical information anytime with the [facility] Patient Portal. If you would like a full copy of your medical records please contact the [facility] Department Sunday through Sunday between 8a.m. and 4:30p.m. Please follow the directions below to access the portal: 1.Access the email account you provided upon registration to the [facility].2.Look for an invitation email from [facility].3.Open the email and access the invitation link: Accept Invitation to [facility]4.Fill in the required kirby to create your account. Sign into [email or web address] with your username and password that you created in the above steps to stay up to date. You can then view a summary of results, a summary of your visits, and the ability to download your summaries to your computer or send the information securely to a physician. Remember that your healthcare information is confidential, so carefully consider who you will allow to register on the [employer] Patient Portal for access to your information. You can also access the [facility] Patient Portal on the [employer]. Simply click on Health Records under [employer] and then click on the [employer] logo. HOW TO SAFELY DISPOSE OF PRESCRIPTION MEDICATIONS Please use one of the following methods to safely dispose of your unused medications. 1.Use a drug disposal kit: the drug disposal pouch allows you to safely discard your old and unuseddrugs. Ask your nurse to give you one when you are discharged.2.Visit a local take-back location: Many local pharmacies and police departments have programs that collect old and unwanted prescriptiondrugs. Call your local pharmacy or go to http://[employer]/3T5Ri3s to find one close to you.3.Make use of household items: Use cat litter or old coffee grounds to dispose medications if other options arenot available. Mix your drugs with these household products, seal them in an airtight container andthrow it into the garbage. Call [facility]: [phone] to be sure your drugs can be disposed of in this way. Some medicines may require a different approach.4.Never flush your medications down the toilet. IF YOU HAVE BEEN PRESCRIBED AN OPIOIDS FOR PAIN If you have been prescribed an opioid (such as hydrocodone, oxycodone or morphine), it is critical to understand the possible side effects and risks of opioid pain medications. Even when taken as directed, opioids can have several side effects including: Tolerance, meaning you might need to take more of a medication for the same pain relief. Nausea, vomiting and/or constipation. Sleepiness, dizziness, dry mouth, confusion, depression or itching. Physical dependence, meaning you have withdrawal symptoms when a medication is stopped ? this can develop within a few days. KNOW YOUR RESPONSIBILITIES It is important to know exactly how much and how often to take the opioid pain medications you are prescribed. Never take opioids in higher amounts or more often than prescribed. Do not combine opioids with alcohol or other drugs that cause drowsiness, such as benzodiazepines, also known as benzos,including diazepam and alprazolam, muscle relaxants or sleep aids. Never sell or share prescriptionopioids. This is illegal. Store opioids in a secure place and out of reach of others (including children, family, friends and visitors). The last page(s) of this document has been signed and retained as a CHART COPY Signatures Patient Education Materials Myofascial Pain Syndrome Medication Leaflets My discharge plan and instructions have been reviewed and explained to me and I,PURVI ARANAd my current condition and have read and understand these discharge instructions. I have received a written copy of the plan/instructions. If I have questions, I am aware that I should contact my doctor. 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 Multiplanar reformatted images are provided for review. Automated exposure control, iterative reconstruction, and/or weight based adjustment of the mA/kV was utilized to reduce the radiation dose to as low as reasonably achievable. COMPARISON: CT thorax 07/07/2021 HISTORY: ORDERING SYSTEM PROVIDED HISTORY: Reason for Exam: Patient states she has right shoulder/arm pain. patient states she fell down steps about 3 weeks ago. pt states she has been taking pain medications and muscle relaxers with no relief pain s/p fall FINDINGS: BONES/ALIGNMENT: There is normal alignment of the spine. The vertebral body heights are maintained. There is mild anterior wedge configuration again seen at T6, T7, unchanged, which may be developmental. There are small endplate indentations compatible with Schmorl's nodes. There is moderate-severe disc space narrowing at T6-T7, T7-T8 and moderate-severe disc space narrowing at T8-T9. There is associated endplate sclerosis and osteophyte formation, vacuum disc phenomenon at the midthoracic spine levels compatible with discogenic degenerative change. DEGENERATIVE CHANGES: No gross spinal canal stenosis or bony neural foraminal narrowing of the thoracic spine. SOFT TISSUES: No paraspinal mass is seen. There is mild bilateral posterior atelectasis of the lung kirby. IMPRESSION: There is no acute vertebral compression fracture of the thoracic spine. Interpreted by: Vinay Garces Preliminary Report By: Vinay Garces Electronically signed By Vinay Garces Dictated Date: 11/28/2024 10:16:19 PM Prelim Date: 11/28/2024 10:29:51 PM Sign Date: 11/28/2024 10:29:51 PM Ordering Provider: [facility]01-31-2025 Note* Exam Date Time Procedure Performing Provider Status 11/28/24 10:[address] Spine Cervical w/ o Contrast Contributor_system, [employer]; Auth (Verified) [id number] ORIGINAL EXAMINATION: CT OF THE CERVICAL SPINE WITHOUT CONTRAST 11/28/2024 10:02 pm TECHNIQUE: CT of the cervical spine was performed without the administration of intravenous contrast. Multiplanar reformatted images are provided for review. Automated exposure control, iterative reconstruction, and/or weight based adjustment of the mA/kV was utilized to reduce the radiation dose to as low as reasonably achievable. COMPARISON: Cervical spine, November 27, 2024 HISTORY: ORDERING SYSTEM PROVIDED HISTORY: Reason for Exam: Patient states she has right shoulder/arm pain. patient states she fell down steps about 3 weeks ago. pt states she has been taking pain medications and muscle relaxers with no relief pain s/p fall FINDINGS: BONES/ALIGNMENT: There is no acute fracture or traumatic malalignment. DEGENERATIVE CHANGES: No severe osseous spinal canal stenosis. SOFT TISSUES: There is no prevertebral soft tissue swelling. IMPRESSION: No acute abnormality of the cervical spine. Interpreted by: Adam Tamez MD Preliminary Report By: Adam Tamez MD Electronically signed By Adam Tamez MD Dictated Date: 11/28/2024 10:05:05 PM Prelim Date: 11/28/2024 10:07:46 PM Sign Date: 11/28/2024 10:07:46 PM Ordering Provider: SAIGE RESENDEZ [facility]01-30-2025 Note* Exam Date Time Procedure Performing Provider Status 11/27/24 2:12 PM XR Shoulder Minimum 2 Views Right TIAN VIGIL DO; Auth (Verified) [id number] ORIGINAL EXAMINATION: TWO XRAY VIEWS OF THE RIGHT SHOULDER 11/27/2024 2:13 pm COMPARISON: None. HISTORY: ORDERING SYSTEM PROVIDED HISTORY: Reason for Exam: Pain right shoulder radiating down the right arm after suffering a fall FINDINGS: Glenohumeral joint is normally aligned. No evidence of acute fracture or dislocation. No abnormal periarticular calcifications. The AC joint is unremarkable in appearance. Visualized lung is unremarkable. IMPRESSION: No acute abnormality. Interpreted by: Tian Vigil DO Preliminary Report By: Tian Vigil DO Electronically signed By Tian Vigil DO Dictated Date: 11/27/2024 2:45:21 PM Prelim Date: 11/27/2024 2:46:00 PM Sign Date: 11/27/2024 2:46:00 PM Ordering Provider: KYLE HAMSAY [facility]01-30-2025 Note* Exam Date Time Procedure Performing Provider Status 11/27/24 2:11 PM XR Spine Cervical Ap/Lat TIAN VIGIL DO; Auth (Verified) [id number] ORIGINAL EXAMINATION: TWO XRAY VIEWS OF THE CERVICAL SPINE 11/27/2024 2:12 pm COMPARISON: None. HISTORY: ORDERING SYSTEM PROVIDED HISTORY: Reason for Exam: Pain right side of the neck FINDINGS: 5 lumbar segments present in appropriate apposition and alignment. There is no acute fracture, infiltrative bony lesion or subluxation. Lung apices are clear. IMPRESSION: No acute bony abnormality. Interpreted by: Tian Vigil DO Preliminary Report By: Tian Vigil DO Electronically signed By Tian Vigil DO Dictated Date: 11/27/2024 2:34:38 PM Prelim Date: 11/27/2024 2:35:12 PM Sign Date: 11/27/2024 2:35:12 PM Ordering Provider[id number] Instructions* Patient Instructions* Honey Hudson APRN.[employer] - 11/24/2024 4:07 PM EST Images from the original note were not included. Back Pain What care is needed at home? Back pain is common. In most cases, your back will feel better in 1 to 3 weeks. You may need to have help at home if you are not able to do your normal activities right away. Some people need help with things like cooking or bathing. Ask your doctor what you need to do when you go home. Make sure you ask questions if you do not understand what the doctor says. This way you will know what you need to do. Rest your back. Full bedrest should not be done for more than 1 to 2 days in most cases. Get up andmove around gently during the day as you are able. Some positions are more comfortable for you whenlying down. Try using a pillow between your knees when you lie on your side. Use a pillow under your knees when on your back. Ice your back a few times a day. Place an ice pack or a bag of frozen peas wrapped in a towel over the painful part. Never put ice right on the skin. Do not leave the ice on more than 10 to 15 minutes at a time. Heat may be used later but not right away. Heat can make swelling worse. If your doctor tells you to use heat, put a heating pad on the painful part for no more than 20 minutes at a time. Never go tosleep with a heating pad on as this can cause moreno. Protect your back. This means no twisting or lifting heavy objects. Check with your doctor when it is OK to do heavy exercise. Use a lumbar support belt. This supports your pelvis and eases pain. Your doctor may order exercises to help your back. Be sure to do these as ordered. You may need other care to help your back. Your doctor may ask you to make visits to the office to check on your progress. Be sure to keep these visits. Your doctor may send you to other experts and therapists to help you with your pain. What drugs may be needed? The doctor may order drugs to: Help with pain and swelling Relax your muscles Will physical activity be limited? You may have to limit your activity. Talk to your doctor about the right amount of activity for you. What can be done to prevent this health problem? Regular exercise may prevent back injuries. Try to exercise at least 30 minutes most days of the week. Good choices include walking, swimming, and biking. Lose weight if you are too heavy. Practice good posture to lower pressure on your spine. Do not sit or photoengraving proofer one position for a long period of time. If you must stand for long periods, rest one foot at a time on a small stool to ease pressure on your lower back. When lifting, hold the object close to your body, keep your back straight, and use your leg musclesto slowly stand. When do I need to call the doctor? Very bad pain or pain for more than 15 minutes while working out Weakness or numbness in your legs, feet, or genital area Problem with walking, standing, or moving Problem passing urine or loss of bowel or bladder control You are not feeling better in 2 to 3 days or you are feeling worse [facility] NoteHNO ID: [id number] Author: HONEY HUDSON APRN.SIVA Service: ? Author Type: Nurse Practitioner Type: Progress Notes Filed: 11/24/2024 16:39 Note Text: Subjective CC: right posterior shoulder pain HPI: 64-year-old female presents with complaint of posterior right shoulder pain that was present upon waking this morning. She denies any precipitating event or injury, but does describe a grabbing sensation that does radiate right out to her shoulder and her right arm. She has tried heat and Tylenol without resolve she does not remember ever having this previously. She has not ever had back surgery. She feels as though the pain is gotten worse throughout the day. She has increased spasms with certain rotations of her head and lifting that right arm. She does not have any numbness or weakness in the arm. Denies other somatic complaints. Review of Systems Constitutional: Negative. HENT: Negative. Eyes: Negative. Respiratory: Negative. Cardiovascular: Negative. Gastrointestinal: Negative. Genitourinary: Negative. Musculoskeletal: Right posterior shoulder pain Skin: Negative. Neurological: Negative. Objective Physical Exam Vitals and nursing note reviewed. Constitutional: Appearance: Normal appearance. HENT: Head: Normocephalic. Eyes: Pupils: Pupils are equal, round, and reactive to light. Cardiovascular: Rate and Rhythm: Normal rate. Heart sounds: Normal heart sounds. Pulmonary: Effort: Pulmonary effort is normal. Musculoskeletal: Arms: Comments: Highlighted area on diagram above is indicative of where patient is having most pain. There is a reproducible pain in this area and the palpable spasm here. There is no bruising or obvious deformity. She maintains full range of motion to the right shoulder and neck, but with some decent hesitancy due to the grabbing sensation nature of the spasm. No midline tenderness. No neck pain. Neurological: General: No focal deficit present. Mental Status: She is alert and oriented to person, place, and time. -I have reviewed and updated with the patient: allergies, VS, current medications, Past Medical History,Past Surgical History, Past Social History. BP 147/85 Pulse 89 Temp (Src) 99.4 (Temporal) Resp 16 Wt 230 lb 12.8 oz (104.7kg) SpO2 98% ASSESSMENT/PLAN: 1. Muscle spasm of right shoulder - ICD9: 728.85, ICD10: M62.838 This patient is felt to have a right sided posterior shoulder muscle spasm. Physiology of this condition is reviewed with this patient as well supportive measures for home. We will give her a short course steroid as well as muscle relaxers and we did discuss the mechanism of each. We also discussed that muscle relaxers make her drowsy. Advised to alternating ice and heat. We did discuss the expected resolution times symptoms and the treatment has begun. Advised if she is not having improvement of symptoms with this therapy the next few days, to please follow-up with her primary care provider. Reviewed signs and symptoms that would warrant further evaluation with PCP versus emergently with the ER. Patient states understanding and compliance. - CYCLOBENZAPRINE 5 MG TABLET - PREDNISONE 50 MG TABLET Honey Hudson APRN.[facility]01-27-2025 History of Present illness Narrative* Honey Hudson APRN.[facility] - 11/24/2024 4:03 PM EST Images from the original note were not included. Subjective CC: right posterior shoulder pain HPI: 64-year-old female presents with complaint of posterior right shoulder pain that was present upon waking this morning. She denies any precipitating event or injury, but does describe a grabbing sensation that does radiate right out to her shoulder and her right arm. She has tried heat and Tylenol without resolve she does not remember ever having this previously. She has not ever had back surgery. She feels as though the pain is gotten worse throughout the day. She has increased spasms withcertain rotations of her head and lifting that right arm. She does not have any numbness or weakness in the arm. Denies other somatic complaints. Review of Systems Constitutional: Negative. HENT: Negative. Eyes: Negative. Respiratory: Negative. Cardiovascular: Negative. Gastrointestinal: Negative. Genitourinary: Negative. Musculoskeletal: Right posterior shoulder pain Skin: Negative. Neurological: Negative. Objective Physical Exam Vitals and nursing note reviewed. Constitutional: Appearance: Normal appearance. HENT: Head: Normocephalic. Eyes: Pupils: Pupils are equal, round, and reactive to light. Cardiovascular: Rate and Rhythm: Normal rate. Heart sounds: Normal heart sounds. Pulmonary: Effort: Pulmonary effort is normal. Musculoskeletal: Arms: Comments: Highlighted area on diagram above is indicative of where patient is having most pain. There is a reproducible pain in this area and the palpable spasm here. There is no bruising or obvious deformity. She maintains full range of motion to the right shoulder and neck, but with some decent hesitancy due to the grabbing sensation nature of the spasm. No midline tenderness. No neck pain. Neurological: General: No focal deficit present. Mental Status: She is alert and oriented to person, place, and time. -I have reviewed and updated with the patient: allergies, VS, current medications, Past Medical History,Past Surgical History, Past Social History. BP 147/85 Pulse 89 Temp (Src) 99.4 (Temporal) Resp 16 Wt 230 lb 12.8 oz (104.7kg) SpO2 98% ASSESSMENT/PLAN: 1. Muscle spasm of right shoulder - ICD9: 728.85, ICD10: M62.838 This patient is felt to have a right sided posterior shoulder muscle spasm. Physiology of this condition is reviewed with this patient as well supportive measures for home. We will give her a short course steroid as well as muscle relaxers and we did discuss the mechanism of each. We also discussedthat muscle relaxers make her drowsy. Advised to alternating ice and heat. We did discuss the expected resolution times symptoms and the treatment has begun. Advised if she is not having improvement of symptoms with this therapy the next few days, to please follow-up with her primary care provider.Reviewed signs and symptoms that would warrant further evaluation with PCP versus emergently with the ER. Patient states understanding and compliance. - CYCLOBENZAPRINE 5 MG TABLET - PREDNISONE 50 MG TABLET Honey Hudson APRN.SIVA documented [facility] Discharge instructions Patient Education 05/21/2024 10:30:24 Hypertension, Established Established High Blood Pressure High blood pressure (hypertension) is a chronic disease. Often, healthcare providers don t know what causes it. But it can be caused by certain health conditions and medicines. If you have high blood pressure, you may not have any symptoms. If you do have symptoms, they may include headache, dizziness, changes in your vision, chest pain, and shortness of breath. But even without symptoms, high blood pressure that s not treated raises your risk for heart attack, heart failure, and stroke. High blood pressure is a serious health risk and shouldn t be ignored. Blood pressure measurements are given as 2 numbers. Systolic blood pressure is the upper number. This is the pressure when the heart contracts. Diastolic blood pressure is the lower number. This is the pressure when the heart relaxes between beats. You will see your blood pressure readings written together. For example, a person with a systolic pressure of 118 and a diastolic pressure of 78 will have 118/78 written in the medical record. Blood pressure is categorized as normal, elevated, or stage 1 or stage 2 high blood pressure: Normal blood pressure is systolic of less than 120 and diastolic of less than 80 (120/80) Elevated blood pressure is systolic of 120 to 129 and diastolic less than 80 Stage 1 high blood pressure is systolic is 130 to 139 or diastolic between 80 to 89 Stage 2 high blood pressure is when systolic is 140 or higher or the diastolic is 90 or higher Home care If you have high blood pressure, follow these home care guidelines to help lower your blood pressure. If you are taking medicines for high blood pressure, these methods may reduce or end your need for medicines in the future. Start a weight-loss program if you are overweight. Cut back on how much salt you get in your diet. Here s how to do this: oDon t eat foods that have a lot of salt. These include olives, pickles, smoked meats, and salted potato chips. oDon t add salt to your food at the table. oUse only small amounts of salt when cooking. Start an exercise program. Talk with your healthcare provider about the type of exercise program that would be best for you. It doesn't have to be hard. Even brisk walking for 20 minutes 3 times a week is a good form of exercise. Don t take medicines that stimulate the heart. This includes many uesm-adi-vanlgrh cold and sinus decongestant pills and sprays, as well as diet pills. Check the warnings about high blood pressure onthe label. Before buying any yzyh-djw-jeqkhbv medicines or supplements, always ask the pharmacist about the product's potential interaction with your high blood pressure and your high blood pressure medicines. Stimulants such as amphetamine or cocaine could be deadly for someone with high blood pressure. Never take these. Limit how much caffeine you get in your diet. Switch to caffeine-free products. Stop smoking. If you are a long-time smoker, this can be hard. Talk to your healthcare provider about medicines and nicotine replacement options to help you. Also, enroll in a stop-smoking program tomake it more likely that you will quit for good. Learn how to handle stress. This is an important part of any program to lower blood pressure. Learnabout relaxation methods like meditation, yoga, or biofeedback. If your provider prescribed medicines, take them exactly as directed. Missing doses may cause your blood pressure get out of control. If you miss a dose or doses, check with your healthcare provider or pharmacist about what to do. Consider buying an automatic blood pressure machine to check your blood pressure at home. Ask your provider for a recommendation. You can get one of these at most pharmacies. The [place] [employer] recommends the following guidelines for home blood pressure monitoring: Don't smoke or drink coffee for 30 minutes before taking your blood pressure. Go to the bathroom before the test. Relax for 5 minutes before taking the measurement. Sit with your back supported (don't sit on a couch or soft chair); keep your feet on the floor uncrossed. Place your arm on a solid flat surface (like a table) with the upper part of the arm at heartlevel. Place the middle of the cuff directly above the bend of the elbow. Check the monitor's instruction manual for an illustration. Take multiple readings. When you measure, take 2 to 3 readings one minute apart and record all of the results. Take your blood pressure at the same time every day, or as your healthcare provider recommends. Record the date, time, and blood pressure reading. Take the record with you to your next medical appointment. If your blood pressure monitor has a built-in memory, simply take the monitor with you to your next appointment. Call your provider if you have several high readings. Don't be frightened by a single high blood pressure reading, but if you get several high readings, check in with your healthcare provider. Note: When blood pressure reaches a systolic (top number) of 180 or higher OR diastolic (bottom number) of 110 or higher, seek emergency medical treatment. Follow-up care You will need to see your healthcare provider regularly. This is to check your blood pressure and to make changes to your medicines. Make a follow-up appointment as directed. Bring the record of yourhome blood pressure readings to the appointment. When to seek medical advice Call your healthcare provider right away if any of these occur: Blood pressure reaches a systolic (upper number) of 180 or higher OR a diastolic (bottom number) of110 or higher Chest pain or shortness of breath Severe headache Throbbing or rushing sound in the ears Nosebleed Sudden severe pain in your belly (abdomen) Extreme drowsiness, confusion, or fainting Dizziness or spinning sensation (vertigo) Weakness of an arm or leg or one side of the face You have problems speaking or seeing [id number] [employer] [place] [address], [place] [address]. All rights reserved. This information is not intended as a substitute for professional medical care. Always follow yourhealthcare professional's instructions. Follow Up Care 05/21/2024 10:02:39 With:KYLE LOGAN DO Address: [address] [place] [address] [place] [address] [phone] When:2-4 days [facility] 07-24-2024 Note Discharge Instructions Thank you for allowing [facility] to assist you with your healthcare needs. The following is importantdischarge information regarding your hospital visit. Diagnosis from Today's Visit Hypertension What to Do Next Instructions from Your Care Team No qualifying data available. Post Acute Orders No qualifying data available. You Need to Schedule the Following Appointments Follow Up with KYLE LOGAN DO When:Within 2-4 days [facility] [facility] [place] [phone] Allergies Contrast dye Nausea, Shaking, Difficulty breathing Novocain Anxiety Spiriva made sick caffeine Tachycardia codeine Difficulty breathing, Rash, Nausea and vomiting penicillins Difficulty breathing, Hives Medications Please ask your primary doctor or pharmacist before taking any other medication not listed, including over the counter drugs, herbal medications, vitamins and or supplements as they may interact withyour home medications. What How Much When Why Instructions Last Dose Unchanged acyclovir topical (Zovirax 5% topical cream) 1 application Topical 5 times a day Unchanged albuterol (albuterol MDI (90 mcg/ inh) CFC free inhalation aerosol) 1 puff(s) by inhalation Every 4 hours as needed for as needed for wheezing Unchanged ALPRAZolam (Xanax 0.25 mg oral tablet) 1 tab(s) by mouth Once a day as needed for as needed for anxiety Anxiety Duration: 30 Days Unchanged amLODIPine (amLODIPine 2.5 mg oral tablet) 1 tab(s) by mouth Once a day Unchanged aspirin (aspirin 81 mg oral delayed release tablet) 1 tab(s) by mouth Once a day Unchanged atorvastatin (Lipitor 80 mg oral tablet) 1 tab(s) by mouth Daily at bedtime Unchanged azelastine nasal (azelastine 137 mcg/ inh (0.1%) nasal spray) 2 spray(s) Intranasal Two (2) times a day Dysfunction of left eustachian tube Unchanged cholecalciferol (Vitamin D3 125 mcg (5000 intl units) oral capsule) 1 cap by mouth Every day Unchanged clobetasol topical (clobetasol 0.05% topical ointment) 1 application Topical Two (2) times a day Unchanged cyanocobalamin (Vitamin B12 1000 mcg oral tablet) 1 tab(s) by mouth Once a day Duration: 100 Days Unchanged ezetimibe (ezetimibe 10 mg oral tablet) 1 tab(s) by mouth Once a day Hyperlipidemia Unchanged hydrochlorothiazide-losartan (hydrochlorothiazide-losartan 12.5-50 mg oral tablet) 1 tab(s) by mouth Once a day Unchanged metroNIDAZOLE topical (metroNIDAZOLE 0.75% topical gel) 1 application Topical Once a day Unchanged minocycline (minocycline 100 mg oral capsule) 1 cap by mouth Once a day Unchanged multivitamin with minerals (ICaps AREDS 2 oral capsule) 1 cap by mouth Two (2) times a day Unchanged nitroGLYcerin (Nitrostat 0.4 mg sublingual tablet) 1 tab(s) under the tongue Every 5 minutes as needed for for chest pain Unchanged pantoprazole (pantoprazole 40 mg oral enteric coated tablet) 1 tab(s) by mouth Two (2) times a day Unchanged predniSONE (predniSONE 10 mg oral tablet) See instructions Greater trochanteric bursitis of left hip Take 4 tablets p.o. daily x 2 days, then 3 tablets p.o. daily x 2 days, then 2 tablets p.o. daily x2 days, then 1 tablet p.o. daily x 2 days. Take with food. Unchanged rOPINIRole (rOPINIRole 0.5 mg oral tablet) 1 tab(s) by mouth Once a day Unchanged umeclidinium (Incruse Ellipta 62.5 mcg/ inh inhalation powder) 1 by inhalation Once a day Unchanged venlafaxine (venlafaxine 37.5 mg oral capsule, extended release) 1 cap by mouth Once a day Please take this list to your next doctor s visit. Bring all medications you take, including over the counter medications, herbals and other supplements with you to your doctor s visit. Patients and families are reminded to discard old lists and to update any records with all medication providers or retail pharmacies. Education Materials Established High Blood Pressure High blood pressure (hypertension) is a chronic disease. Often, healthcare providers don t know what causes it. But it can be caused by certain health conditions and medicines. If you have high blood pressure, you may not have any symptoms. If you do have symptoms, they may include headache, dizziness, changes in your vision, chest pain, and shortness of breath. But even without symptoms, high blood pressure that s not treated raises your risk for heart attack, heart failure, and stroke. High blood pressure is a serious health risk and shouldn t be ignored. Blood pressure measurements are given as 2 numbers. Systolic blood pressure is the upper number. This is the pressure when the heart contracts. Diastolic blood pressure is the lower number. This is the pressure when the heart relaxes between beats. You will see your blood pressure readings written together. For example, a person with a systolic pressure of 118 and a diastolic pressure of 78 will have 118/78 written in the medical record. Blood pressure is categorized as normal, elevated, or stage 1 or stage 2 high blood pressure: Normal blood pressure is systolic of less than 120 and diastolic of less than 80 (120/80) Elevated blood pressure is systolic of 120 to 129 and diastolic less than 80 Stage 1 high blood pressure is systolic is 130 to 139 or diastolic between 80 to 89 Stage 2 high blood pressure is when systolic is 140 or higher or the diastolic is 90 or higher Home care If you have high blood pressure, follow these home care guidelines to help lower your blood pressure. If you are taking medicines for high blood pressure, these methods may reduce or end your need for medicines in the future. Start a weight-loss program if you are overweight. Cut back on how much salt you get in your diet. Here s how to do this: oDon t eat foods that have a lot of salt. These include olives, pickles, smoked meats, and salted potato chips. oDon t add salt to your food at the table. oUse only small amounts of salt when cooking. Start an exercise program. Talk with your healthcare provider about the type of exercise program that would be best for you. It doesn't have to be hard. Even brisk walking for 20 minutes 3 times a week is a good form of exercise. Don t take medicines that stimulate the heart. This includes many oyxv-pte-nvjzcar cold and sinus decongestant pills and sprays, as well as diet pills. Check the warnings about high blood pressure onthe label. Before buying any nesa-nrb-rqunhag medicines or supplements, always ask the pharmacist about the product's potential interaction with your high blood pressure and your high blood pressure medicines. Stimulants such as amphetamine or cocaine could be deadly for someone with high blood pressure. Never take these. Limit how much caffeine you get in your diet. Switch to caffeine-free products. Stop smoking. If you are a long-time smoker, this can be hard. Talk to your healthcare provider about medicines and nicotine replacement options to help you. Also, enroll in a stop-smoking program tomake it more likely that you will quit for good. Learn how to handle stress. This is an important part of any program to lower blood pressure. Learnabout relaxation methods like meditation, yoga, or biofeedback. If your provider prescribed medicines, take them exactly as directed. Missing doses may cause your blood pressure get out of control. If you miss a dose or doses, check with your healthcare provider or pharmacist about what to do. Consider buying an automatic blood pressure machine to check your blood pressure at home. Ask your provider for a recommendation. You can get one of these at most pharmacies. The [place] [employer] recommends the following guidelines for home blood pressure monitoring: Don't smoke or drink coffee for 30 minutes before taking your blood pressure. Go to the bathroom before the test. Relax for 5 minutes before taking the measurement. Sit with your back supported (don't sit on a couch or soft chair); keep your feet on the floor uncrossed. Place your arm on a solid flat surface (like a table) with the upper part of the arm at heartlevel. Place the middle of the cuff directly above the bend of the elbow. Check the monitor's instruction manual for an illustration. Take multiple readings. When you measure, take 2 to 3 readings one minute apart and record all of the results. Take your blood pressure at the same time every day, or as your healthcare provider recommends. Record the date, time, and blood pressure reading. Take the record with you to your next medical appointment. If your blood pressure monitor has a built-in memory, simply take the monitor with you to your next appointment. Call your provider if you have several high readings. Don't be frightened by a single high blood pressure reading, but if you get several high readings, check in with your healthcare provider. Note: When blood pressure reaches a systolic (top number) of 180 or higher OR diastolic (bottom number) of 110 or higher, seek emergency medical treatment. Follow-up care You will need to see your healthcare provider regularly. This is to check your blood pressure and to make changes to your medicines. Make a follow-up appointment as directed. Bring the record of yourhome blood pressure readings to the appointment. When to seek medical advice Call your healthcare provider right away if any of these occur: Blood pressure reaches a systolic (upper number) of 180 or higher OR a diastolic (bottom number) of110 or higher Chest pain or shortness of breath Severe headache Throbbing or rushing sound in the ears Nosebleed Sudden severe pain in your belly (abdomen) Extreme drowsiness, confusion, or fainting Dizziness or spinning sensation (vertigo) Weakness of an arm or leg or one side of the face You have problems speaking or seeing [phone] [employer]. [address] [place] [address]. All rights reserved. This information is not intended as a substitute for professional medical care. Always follow yourhealthcare professional's instructions. Additional Information VACCINATE! IT SAVES LIVES! Members of the community who have not yet received the COVID-19 vaccine and would like to receive it can visit one of [facility] vaccine clinics. There are many vaccine clinic locations within the [facility]. For locations and available times, please visit [email or web address].[place].gov/. It is important to note that some COVID mobile vaccine clinics are held outdoors and may be canceled in rainy or stormy conditions. To learn more about pediatric vaccinations (ages 5-11), we invite you to visit the [facility] webpage. [email or web address] learn more about the COVID-19 vaccine, we invite you to visit the CDC website for a list of frequently asked questions. https://www.cdc.gov/coronavirus/2019-ncov/vaccines/faq.html [facility] Patient Portal Access Instructions: Stay connected with your healthcare team and access your personal medical information anytime with the [facility] Patient Portal. If you would like a full copy of your medical records please contact the [facility] Sunday through Sunday between 8a.m. and 4:30p.m. Please follow the directions below to access the portal: 1.Access the email account you provided upon registration to the [facility].2.Look for an invitation email from [facility].3.Open the email and access the invitation link: Accept Invitation to [facility].Fill in the required kirby to create your account. Sign into [email or web address] with your username and password that you created in the above steps to stay up to date. You can then view a summary of results, a summary of your visits, and the ability to download your summaries to your computer or send the information securely to a physician. Remember that your healthcare information is confidential, so carefully consider who you will allow to register on the [facility] Patient Portal for access to your information. You can also access the [facility] Patient Portal on the [employer]. Simply click on Health Records under [employer] and then click on the [employer] logo. HOW TO SAFELY DISPOSE OF PRESCRIPTION MEDICATIONS Please use one of the following methods to safely dispose of your unused medications. 1.Use a drug disposal kit: the drug disposal pouch allows you to safely discard your old and unuseddrugs. Ask your nurse to give you one when you are discharged.2.Visit a local take-back location: Many local pharmacies and police departments have programs that collect old and unwanted prescriptiondrugs. Call your local pharmacy or go to http://[employer]/8B4Ht9j to find one close to you.3.Make use of household items: Use cat litter or old coffee grounds to dispose medications if other options arenot available. Mix your drugs with these household products, seal them in an airtight container andthrow it into the garbage. Call [facility]: [phone] to be sure your drugs can be disposed of in this way. Some medicines may require a different approach.4.Never flush your medications down the toilet. IF YOU HAVE BEEN PRESCRIBED AN OPIOIDS FOR PAIN If you have been prescribed an opioid (such as hydrocodone, oxycodone or morphine), it is critical to understand the possible side effects and risks of opioid pain medications. Even when taken as directed, opioids can have several side effects including: Tolerance, meaning you might need to take more of a medication for the same pain relief. Nausea, vomiting and/or constipation. Sleepiness, dizziness, dry mouth, confusion, depression or itching. Physical dependence, meaning you have withdrawal symptoms when a medication is stopped ? this can develop within a few days. KNOW YOUR RESPONSIBILITIES It is important to know exactly how much and how often to take the opioid pain medications you are prescribed. Never take opioids in higher amounts or more often than prescribed. Do not combine opioids with alcohol or other drugs that cause drowsiness, such as benzodiazepines, also known as benzos,including diazepam and alprazolam, muscle relaxants or sleep aids. Never sell or share prescriptionopioids. This is illegal. Store opioids in a secure place and out of reach of others (including children, family, friends and visitors). The last page(s) of this document has been signed and retained as a CHART COPY Signatures Patient Education Materials Hypertension, Established Medication Leaflets My discharge plan and instructions have been reviewed and explained to me and ISUMIT KIMBERLY Sunderstand my current condition and have read and understand these discharge instructions. I have received a written copy of the plan/instructions. If I have questions, I am aware that I should contact my doctor. 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 This infection usually follows a respiratory illness; it can also be related to allergies, changes in atmospheric pressure (flying, diving), or anything that blocks nasal drainage. Symptoms include: headache, facial pain, a thick nasal discharge, congestion, and cough. The treatment includes antibiotic therapy, increasing oral fluids, and pain medication if needed. Nose spray decongestants (Afrin, Jun-Synephrine) and oral decongestants may be needed to reduce congestion and drainage. Rarely the sinus must be irrigated to remove the infected material. Sinusitis can lead to serious complications by spreading to other areas such as the eye or brain. Please call your doctor or return here right away if you have any of the following more serious symptoms: Unusual swelling around the eye or trouble seeing. Increasing pain, severe headache, or toothache. Nausea, vomiting, or unusual drowsiness. [facility] NoteHNO ID: [id number] Author: THADDEUS BURCIAGA APRN.SIVA Service: ? Author Type: Nurse Practitioner Type: Progress Notes Filed: 01/16/2024 09:03 Note Text: Purvi Arana is a 63 year old female who presents with Cough (Sore throat started sun with a headache) Patient starts started with a headache on Sunday then this progressed on Sunday to include sore throat congestion cough and bodyaches. Patient denies known fever however she does state she goes between chills and sweats. Patient states daughter is also ill and presented here yesterday and was treated for bronchitis. Patient does have a history of asthma and also often develops bronchitis. Denies any nausea, vomiting, diarrhea with this. Cough Associated symptoms include chills, headaches, sore throat and myalgias. Pertinent negatives include no chest pain, no ear pain, no shortness of breath and no wheezing. History reviewed. No pertinent past medical history. There is no problem list on file for this patient. Current Outpatient Medications Medication Sig Dispense Refill metroNIDAZOLE (METROGEL) 0.75 % Topical Gel cholecalciferol, vitamin D3, (VITAMIN D3 ORAL) Take 1,000 mg by mouth once daily. vit A/vit C/vit E/zinc/copper (ICAPS AREDS ORAL) Take by mouth once daily. Take once a day albuterol HFA (PROVENTIL HFA, VENTOLIN HFA) 90 mcg/actuation inhaler albuterol sulfate HFA 90 mcg/actuation aerosol inhaler ALPRAZolam (XANAX) 0.25 mg tablet alprazolam 0.25 mg tablet TAKE 1 TABLET BY MOUTH EVERY DAY FOR 30 DAYS NEEDED FOR ANXIETY amLODIPine (NORVASC) 2.5 mg tablet amlodipine 2.5 mg tablet TAKE 1 TABLET BY MOUTH EVERY DAY aspirin, enteric coated (ASPIRIN, ENTERIC COATED) 81 mg EC tablet Papito Low Dose Aspirin 81 mg tablet,delayed release take 1 tablet (81MG) by oral route every day atorvastatin (LIPITOR) 80 mg tablet atorvastatin 80 mg tablet TAKE 1 TABLET BY MOUTH AT BEDTIME clobetasol (TEMOVATE) 0.05 % ointment cyanocobalamin (VITAMIN B-12) 1,000 mcg tab Vitamin B-12 1,000 mcg tablet take 1 by Oral route every day with food ezetimibe (ZETIA) 10 mg tablet Take 10 mg by mouth once daily. losartan-hydroCHLOROthiazide (HYZAAR) 50-12.5 mg per tablet losartan 50 mg-hydrochlorothiazide 12.5 mg tablet TAKE 1 TABLET BY MOUTH EVERY DAY minocycline (MINOCIN, DYNACIN) 100 mg capsule minocycline 100 mg capsule TAKE 1 CAPSULE BY MOUTH EVERY DAY nitroglycerin sublingual (NITROQUICK) 0.4 mg SL tablet nitroglycerin 0.[address] 1 TABLET UNDER TONGUE EVERY 5 MINS, UP TO 3 DOSES NEEDED FOR CHEST PAIN pantoprazole DR (PROTONIX) 40 mg tablet pantoprazole 40 mg tablet,delayed release INCRUSE ELLIPTA 62.5 mcg/actuation inhaler INHALE 1 PUFF EVERY DAY Zzsqttsvrdgaczj-Oibndpzpd-CX (BROMFED DM) 2-30-10 mg/5 mL syrup Take 10 mL by mouth four times a day as needed (Cold Symptoms). (Patient not taking: Reported on 01/16/2024) 200 mL 0 azithromycin (ZITHROMAX) 250 mg tablet 2 po day 1 then one po daily days 2-5 Patient should start on December 04, 2023. (Patient not taking: Reported on 01/16/2024) 6 tablet 0 Biotin 1 mg tab Dose : 1,000 mcg = 1 tab(s), Oral, qDay, # 30 tab(s), 0 Refill(s) (Patient not taking: Reported on 12/01/2023) No current facility-administered medications for this visit. Social History Tobacco Use Smoking status: Every Day Packs/day: .5 Types: Cigarettes Passive exposure: Current Smokeless tobacco: Never Vaping Use Vaping Use: Never used Substance Use Topics Alcohol use: Never Drug use: Never Alcohol Use: Never Tobacco Use: 0.5 packs/day Types: Cigarettes History reviewed. No pertinent family history. Review of Systems Constitutional: Positive for chills, diaphoresis and malaise/fatigue. Negative for fever. HENT: Positive for congestion, sinus pain and sore throat. Negative for ear pain. Eyes: Negative. Respiratory: Positive for cough and sputum production. Negative for hemoptysis, shortness of breath and wheezing. Cardiovascular: Negative for chest pain and palpitations. Gastrointestinal: Negative for abdominal pain, nausea and vomiting. Genitourinary: Negative. Musculoskeletal: Positive for myalgias. Skin: Negative. Neurological: Positive for headaches. BP 160/82 Pulse 90 Temp 98.1 Resp 16 Wt 199 lb (90.3kg) SpO2 97% Physical Exam Vitals and nursing note reviewed. Constitutional: Appearance: Normal appearance. She is ill-appearing. HENT: Right Ear: Tympanic membrane is retracted. Left Ear: Tympanic membrane is retracted. Nose: Congestion and rhinorrhea present. Mouth/Throat: Mouth: Mucous membranes are moist. Pharynx: Oropharynx is clear. Posterior oropharyngeal erythema present. Eyes: Extraocular Movements: Extraocular movements intact. Conjunctiva/sclera: Conjunctivae normal. Pupils: Pupils are equal, round, and reactive to light. Cardiovascular: Rate and Rhythm: Normal rate and regular rhythm. Pulses: Normal (more content not included)...[facility]03-20-2024 History of Present illness Narrative* Thaddeus Burciaga, MARC.[facility] - 01/16/2024 8:28 AM EDT Purvi Arana is a 63 year old female who presents with Cough (Sore throat started sun with a headache) Patient starts started with a headache on Sunday then this progressed on Sunday to include sore throat congestion cough and bodyaches. Patient denies known fever however she does state she goes between chills and sweats. Patient states daughter is also ill and presented here yesterday and was treated for bronchitis. Patient does have a history of asthma and also often develops bronchitis. Denies any nausea, vomiting, diarrhea with this. Cough Associated symptoms include chills, headaches, sore throat and myalgias. Pertinent negatives include no chest pain, no ear pain, no shortness of breath and no wheezing. History reviewed. No pertinent past medical history. There is no problem list on file for this patient. Current Outpatient Medications Medication Sig Dispense Refill metroNIDAZOLE (METROGEL) 0.75 % Topical Gel cholecalciferol, vitamin D3, (VITAMIN D3 ORAL) Take 1,000 mg by mouth once daily. vit A/vit C/vit E/zinc/copper (ICAPS AREDS ORAL) Take by mouth once daily. Take once a day albuterol HFA (PROVENTIL HFA, VENTOLIN HFA) 90 mcg/actuation inhaler albuterol sulfate HFA 90 mcg/actuation aerosol inhaler ALPRAZolam (XANAX) 0.25 mg tablet alprazolam 0.25 mg tablet TAKE 1 TABLET BY MOUTH EVERY DAY FOR 30 DAYS NEEDED FOR ANXIETY amLODIPine (NORVASC) 2.5 mg tablet amlodipine 2.5 mg tablet TAKE 1 TABLET BY MOUTH EVERY DAY aspirin, enteric coated (ASPIRIN, ENTERIC COATED) 81 mg EC tablet Papito Low Dose Aspirin 81 mg tablet,delayed release take 1 tablet (81MG) by oral route every day atorvastatin (LIPITOR) 80 mg tablet atorvastatin 80 mg tablet TAKE 1 TABLET BY MOUTH AT BEDTIME clobetasol (TEMOVATE) 0.05 % ointment cyanocobalamin (VITAMIN B-12) 1,000 mcg tab Vitamin B-12 1,000 mcg tablet take 1 by Oral route every day with food ezetimibe (ZETIA) 10 mg tablet Take 10 mg by mouth once daily. losartan-hydroCHLOROthiazide (HYZAAR) 50-12.5 mg per tablet losartan 50 mg- hydrochlorothiazide 12.5mg tablet TAKE 1 TABLET BY MOUTH EVERY DAY minocycline (MINOCIN, DYNACIN) 100 mg capsule minocycline 100 mg capsule TAKE 1 CAPSULE BY MOUTH EVERY DAY nitroglycerin sublingual (NITROQUICK) 0.4 mg SL tablet nitroglycerin 0.[address] 1 TABLET UNDER TONGUE EVERY 5 MINS, UP TO 3 DOSES NEEDED FOR CHEST PAIN pantoprazole DR (PROTONIX) 40 mg tablet pantoprazole 40 mg tablet,delayed release INCRUSE ELLIPTA 62.5 mcg/actuation inhaler INHALE 1 PUFF EVERY DAY Pvbihemutagraac-Mjbmvtfei-KS (BROMFED DM) 2-30-10 mg/5 mL syrup Take 10 mL by mouth four times a day as needed (Cold Symptoms). (Patient not taking: Reported on 01/16/2024) 200 mL 0 azithromycin (ZITHROMAX) 250 mg tablet 2 po day 1 then one po daily days 2-5 Patient should start on December 04, 2023. (Patient not taking: Reported on 01/16/2024) 6 tablet 0 Biotin 1 mg tab Dose : 1,000 mcg = 1 tab(s), Oral, qDay, # 30 tab(s), 0 Refill(s) (Patient not taking: Reported on 12/01/2023) No current facility-administered medications for this visit. Social History Tobacco Use Smoking status: Every Day Packs/day: .5 Types: Cigarettes Passive exposure: Current Smokeless tobacco: Never Vaping Use Vaping Use: Never used Substance Use Topics Alcohol use: Never Drug use: Never Alcohol Use: Never Tobacco Use: 0.5 packs/day Types: Cigarettes History reviewed. No pertinent family history. Review of Systems Constitutional: Positive for chills, diaphoresis and malaise/fatigue. Negative for fever. HENT: Positive for congestion, sinus pain and sore throat. Negative for ear pain. Eyes: Negative. Respiratory: Positive for cough and sputum production. Negative for hemoptysis, shortness of breathand wheezing. Cardiovascular: Negative for chest pain and palpitations. Gastrointestinal: Negative for abdominal pain, nausea and vomiting. Genitourinary: Negative. Musculoskeletal: Positive for myalgias. Skin: Negative. Neurological: Positive for headaches. BP 160/82 Pulse 90 Temp 98.1 Resp 16 Wt 199 lb (90.3kg) SpO2 97% Physical Exam Vitals and nursing note reviewed. Constitutional: Appearance: Normal appearance. She is ill-appearing. HENT: Right Ear: Tympanic membrane is retracted. Left Ear: Tympanic membrane is retracted. Nose: Congestion and rhinorrhea present. Mouth/Throat: Mouth: Mucous membranes are moist. Pharynx: Oropharynx is clear. Posterior oropharyngeal erythema present. Eyes: Extraocular Movements: Extraocular movements intact. Conjunctiva/sclera: Conjunctivae normal. Pupils: Pupils are equal, round, and reactive to light. Cardiovascular: Rate and Rhythm: Normal rate and regular rhythm. Pulses: Normal pulses. Heart sounds: Normal heart sounds. Pulmonary: Effort: Pulmonary effort is normal. Breath sounds: Normal breath sounds. Abdominal: General: Abdomen is flat. Bowel sounds are normal. Palpations: Abdomen is soft. Musculoskeletal: General: Normal range of motion. Lymphadenopathy: Cervical: Cervical adenopathy present. Skin: General: Skin is warm and dry. Neurological: General: No focal deficit present. Mental Status: She is alert and oriented to person, place, and time. ASSESSMENT/PLAN: 1. Viral illness - ICD9: 079.99, ICD10: B34.9 (primary diagnosis) - RAPID FLU A AND B Rapid flu negative 2. Acute non-recurrent frontal sinusitis - ICD9: 461.1, ICD10: J01.10 - Will begin treatment with as per antibiotic as written, see orders - The patient should also be given as below for the first 5-7 days of treatment. - Supportive care with plenty of fluids, rest, and analgesia prn. - DOXYCYCLINE HYCLATE 100 MG TABLET - CHLORPHENIRAMINE 4 MG TABLET Thaddeus Burciaga documented [facility] NoteHNO ID: [id number] Author: LINDSEY SMILEY, DO Service: ? Author Type: Physician Type: Progress Notes Filed: 12/01/2023 10:16 Note Text: Purvi Arana is a 63 year old FEMALE who presents with Fever (Started 4 days aog /), Mass (Lumps on Neck (possibly lymph node?) /Started 4 days ago /), Muscle Aches (Started 4 days ago /), Headache (Started 4 days ago /), Neck Pain (Started 4 days ago /), Derm Problem (On back on neck and chest /Sometimes itches /Started 3 days ago /), and Sore Throat (Started 2-3 days ago /) HPI History reviewed. No pertinent past medical history. There is no problem list on file for this patient. Current Outpatient Medications Medication Sig Dispense Refill metroNIDAZOLE (METROGEL) 0.75 % Topical Gel cholecalciferol, vitamin D3, (VITAMIN D3 ORAL) Take 1,000 mg by mouth once daily. vit A/vit C/vit E/zinc/copper (ICAPS AREDS ORAL) Take by mouth once daily. Take once a day albuterol HFA (PROVENTIL HFA, VENTOLIN HFA) 90 mcg/actuation inhaler albuterol sulfate HFA 90 mcg/actuation aerosol inhaler ALPRAZolam (XANAX) 0.25 mg tablet alprazolam 0.25 mg tablet TAKE 1 TABLET BY MOUTH EVERY DAY FOR 30 DAYS NEEDED FOR ANXIETY amLODIPine (NORVASC) 2.5 mg tablet amlodipine 2.5 mg tablet TAKE 1 TABLET BY MOUTH EVERY DAY aspirin, enteric coated (ASPIRIN, ENTERIC COATED) 81 mg EC tablet Papito Low Dose Aspirin 81 mg tablet,delayed release take 1 tablet (81MG) by oral route every day atorvastatin (LIPITOR) 80 mg tablet atorvastatin 80 mg tablet TAKE 1 TABLET BY MOUTH AT BEDTIME clobetasol (TEMOVATE) 0.05 % ointment cyanocobalamin (VITAMIN B-12) 1,000 mcg tab Vitamin B-12 1,000 mcg tablet take 1 by Oral route every day with food ezetimibe (ZETIA) 10 mg tablet Take 10 mg by mouth once daily. losartan-hydroCHLOROthiazide (HYZAAR) 50-12.5 mg per tablet losartan 50 mg-hydrochlorothiazide 12.5 mg tablet TAKE 1 TABLET BY MOUTH EVERY DAY minocycline (MINOCIN, DYNACIN) 100 mg capsule minocycline 100 mg capsule TAKE 1 CAPSULE BY MOUTH EVERY DAY nitroglycerin sublingual (NITROQUICK) 0.4 mg SL tablet nitroglycerin 0.[address] 1 TABLET UNDER TONGUE EVERY 5 MINS, UP TO 3 DOSES NEEDED FOR CHEST PAIN pantoprazole DR (PROTONIX) 40 mg tablet pantoprazole 40 mg tablet,delayed release INCRUSE ELLIPTA 62.5 mcg/actuation inhaler INHALE 1 PUFF EVERY DAY dexAMETHasone (DECADRON) 6 mg tablet Take 1 tablet by mouth once daily for 5 days. 5 tablet 0 loratadine (CLARITIN) 10 mg tablet Take 1 tablet by mouth once daily for 10 days. 10 tablet 0 oxyCODONE-acetaminophen (PERCOCET) 5-325 mg tablet Take 1 tablet by mouth every 8 hours as needed for pain for up to 5 days. 15 tablet 0 Biotin 1 mg tab Dose : 1,000 mcg = 1 tab(s), Oral, qDay, # 30 tab(s), 0 Refill(s) (Patient not taking: Reported on 12/01/2023) Current Facility-Administered Medications Medication Dose Route Frequency Provider Last Rate Last Admin dexAMETHasone sodium phosphate 10 mg for oral administration (DECADRON) 10 mg ORAL ONCE Lindsey Smiley, Social History Tobacco Use Smoking status: Every Day Packs/day: .5 Types: Cigarettes Passive exposure: Current Smokeless tobacco: Never Vaping Use Vaping Use: Never used Substance Use Topics Alcohol use: Never Drug use: Never Alcohol Use: Never Tobacco Use: 0.5 packs/day Types: Cigarettes History reviewed. No pertinent family history. Review of Systems Musculoskeletal: Back pain: chronic sacroiliitis. All other systems reviewed and are negative. BP 135/82 Pulse 99 Temp (Src) 98.5 (Temporal) Resp 18 Wt 205 lb (93.0kg) SpO2 96% Physical Exam ASSESSMENT/[facility]02-03-2024 NoteHNO ID: [id number] Author: HENRY STEVE APRN.BUSHING PRESS OPERATOR Service: ? Author Type: Nurse Practitioner Type: Progress Notes Filed: 12/01/2023 10:16 Note Text: Purvi Arana is a 63 year old female who presents with Fever (Started 4 days aog /), Mass (Lumps on Neck (possibly lymph node?) /Started 4 days ago /), Muscle Aches (Started 4 days ago /), Headache (Started 4 days ago /), Neck Pain (Started 4 days ago /), Derm Problem (On back on neck and chest /Sometimes itches /Started 3 days ago /), and Sore Throat (Started 2-3 days ago /) Purvi is a 63-year-old female who presents today with sore throat, body aches, headache, fever and chills. States that her symptoms started on Sunday evening. She states that her she saw her primary care doctor on Sunday and was told she had a viral upper respiratory infection. States she was instructed to take Tylenol. States she was also written off work for the rest of the week. She states that this morning she is still not feeling well. She does not feel like she will be able to go to work on Sunday. No new symptoms. No difficulty breathing, chest pain or shortness of breath. States she still feels body aches all over. States she took 2 home COVID tests which were negative. Is declining COVID, flu and RSV swab today. No other complaints. History reviewed. No pertinent past medical history. There is no problem list on file for this patient. Current Outpatient Medications Medication Sig Dispense Refill metroNIDAZOLE (METROGEL) 0.75 % Topical Gel cholecalciferol, vitamin D3, (VITAMIN D3 ORAL) Take 1,000 mg by mouth once daily. vit A/vit C/vit E/zinc/copper (ICAPS AREDS ORAL) Take by mouth once daily. Take once a day albuterol HFA (PROVENTIL HFA, VENTOLIN HFA) 90 mcg/actuation inhaler albuterol sulfate HFA 90 mcg/actuation aerosol inhaler ALPRAZolam (XANAX) 0.25 mg tablet alprazolam 0.25 mg tablet TAKE 1 TABLET BY MOUTH EVERY DAY FOR 30 DAYS NEEDED FOR ANXIETY amLODIPine (NORVASC) 2.5 mg tablet amlodipine 2.5 mg tablet TAKE 1 TABLET BY MOUTH EVERY DAY aspirin, enteric coated (ASPIRIN, ENTERIC COATED) 81 mg EC tablet Papito Low Dose Aspirin 81 mg tablet,delayed release take 1 tablet (81MG) by oral route every day atorvastatin (LIPITOR) 80 mg tablet atorvastatin 80 mg tablet TAKE 1 TABLET BY MOUTH AT BEDTIME clobetasol (TEMOVATE) 0.05 % ointment cyanocobalamin (VITAMIN B-12) 1,000 mcg tab Vitamin B-12 1,000 mcg tablet take 1 by Oral route every day with food ezetimibe (ZETIA) 10 mg tablet Take 10 mg by mouth once daily. losartan-hydroCHLOROthiazide (HYZAAR) 50-12.5 mg per tablet losartan 50 mg-hydrochlorothiazide 12.5 mg tablet TAKE 1 TABLET BY MOUTH EVERY DAY minocycline (MINOCIN, DYNACIN) 100 mg capsule minocycline 100 mg capsule TAKE 1 CAPSULE BY MOUTH EVERY DAY nitroglycerin sublingual (NITROQUICK) 0.4 mg SL tablet nitroglycerin 0.[address] 1 TABLET UNDER TONGUE EVERY 5 MINS, UP TO 3 DOSES NEEDED FOR CHEST PAIN pantoprazole DR (PROTONIX) 40 mg tablet pantoprazole 40 mg tablet,delayed release INCRUSE ELLIPTA 62.5 mcg/actuation inhaler INHALE 1 PUFF EVERY DAY Pqexnyknqycxhzu-Ydznsuhxl-CL (BROMFED DM) 2-30-10 mg/5 mL syrup Take 10 mL by mouth four times a day as needed (Cold Symptoms). 200 mL 0 [START ON 12/04/2023] azithromycin (ZITHROMAX) 250 mg tablet 2 po day 1 then one po daily days 2-5 Patient should start on December 04, 2023. 6 tablet 0 Biotin 1 mg tab Dose : 1,000 mcg = 1 tab(s), Oral, qDay, # 30 tab(s), 0 Refill(s) (Patient not taking: Reported on 12/01/2023) No current facility-administered medications for this visit. Social History Tobacco Use Smoking status: Every Day Packs/day: .5 Types: Cigarettes Passive exposure: Current Smokeless tobacco: Never Vaping Use Vaping Use: Never used Substance Use Topics Alcohol use: Never Drug use: Never Alcohol Use: Never Tobacco Use: 0.5 packs/day Types: Cigarettes History reviewed. No pertinent family history. Review of Systems Constitutional: Positive for chills, fever and malaise/fatigue. HENT: Positive for congestion and sore throat. Negative for ear pain and sinus pain. Eyes: Negative. Respiratory: Positive for cough. Negative for sputum production, shortness of breath and wheezing. Cardiovascular: Negative for chest pain and palpitations. Gastrointestinal: Negative for abdominal pain, nausea and vomiting. Musculoskeletal: Positive for myalgias and neck pain. Negative for back pain. Skin: Small area on back of neck that is scabbed and slightly itchy. Neurological: Positive for headaches. Negative for dizziness. BP 135/82 Pulse 99 Temp (Src) 98.5 (Temporal) Resp 18 Wt 205 lb (93.0kg) SpO2 96% Physical Exam Vitals and nursing note reviewed. Constitutional: General: She is not in acute distress. Appearance: Normal appearance. She is not ill-appearing, toxic-appearing or diaphoretic. HENT: Head: (more content not included)...[facility]11-30-2022 Miscellaneous Notes* Telephone Encounter - Charity Harmon LPN - 09/27/2022 10:46 AM EST Patient is aware of lab results and voices no concerns. Charity Harmon LPN * Telephone Encounter - Charity Harmon LPN - 09/27/2022 10:44 AM EST ----- Message from Lindsey Smiley DO sent at 09/27/2022 8:16 AM EST ----- Panel negative no further action. [facility] History of Present illness Narrative* Kamar Fraire (Xander) XANDER Downs - 09/25/2022 4:24 PM EST Purvi Arana is an 62 year old female presenting with Cough (Congestion body aches) HPI: The patient states that they have had a cough, runny nose and nasal congestion for the last 2 days. Cough is productive of sputum. The patient denies sore throat without pain with swallowing/difficulty swallowing. Denies fever or chills. Positive myalgias. Denies COVID exposures that she is aware of. Denies loss of taste or smell. Patient denies CP or dyspnea. No vomiting or diarrhea. The patient presents for evaluation. History reviewed. No pertinent past medical history. There is no problem list on file for this patient. Current Outpatient Medications Medication Sig Dispense Refill albuterol HFA (PROVENTIL HFA, VENTOLIN HFA) 90 mcg/actuation inhaler albuterol sulfate HFA 90 mcg/actuation aerosol inhaler ALPRAZolam (XANAX) 0.25 mg tablet alprazolam 0.25 mg tablet TAKE 1 TABLET BY MOUTH EVERY DAY FOR 30 DAYS NEEDED FOR ANXIETY amLODIPine (NORVASC) 2.5 mg tablet amlodipine 2.5 mg tablet TAKE 1 TABLET BY MOUTH EVERY DAY aspirin, enteric coated (ASPIRIN, ENTERIC COATED) 81 mg EC tablet Papito Low Dose Aspirin 81 mg tablet,delayed release take 1 tablet (81MG) by oral route every day atorvastatin (LIPITOR) 80 mg tablet atorvastatin 80 mg tablet TAKE 1 TABLET BY MOUTH AT BEDTIME Biotin 1 mg tab Dose : 1,000 mcg = 1 tab(s), Oral, qDay, # 30 tab(s), 0 Refill(s) clobetasol (TEMOVATE) 0.05 % ointment cyanocobalamin (VITAMIN B-12) 1,000 mcg tab Vitamin B-12 1,000 mcg tablet take 1 by Oral route every day with food losartan-hydroCHLOROthiazide (HYZAAR) 50-12.5 mg per tablet losartan 50 mg- hydrochlorothiazide 12.5mg tablet TAKE 1 TABLET BY MOUTH EVERY DAY minocycline (MINOCIN, DYNACIN) 100 mg capsule minocycline 100 mg capsule TAKE 1 CAPSULE BY MOUTH EVERY DAY nitroglycerin sublingual (NITROQUICK) 0.4 mg SL tablet nitroglycerin 0.[address] 1 TABLET UNDER TONGUE EVERY 5 MINS, UP TO 3 DOSES NEEDED FOR CHEST PAIN pantoprazole DR (PROTONIX) 40 mg tablet pantoprazole 40 mg tablet,delayed release INCRUSE ELLIPTA 62.5 mcg/actuation inhaler INHALE 1 PUFF EVERY DAY ezetimibe (ZETIA) 10 mg tablet Take 10 mg by mouth once daily. No current facility-administered medications for this visit. Social History Tobacco Use Smoking status: Some Days Types: Cigarettes Smokeless tobacco: Never Vaping Use Vaping Use: Never used Alcohol Use: Not on file Tobacco Use: Types: Cigarettes History reviewed. No pertinent family history. ROS: Unless otherwise stated in this report the patient's positive and negative responses for review of systems for constitutional, eyes, ENT, cardiovascular, respiratory, gastrointestinal, neurological, , musculoskeletal, and integument systems and related systems to the presenting problem are either stated in the history of present illness or were not pertinent or were negative for the symptoms and/or complaints related to the presenting medical problem. BP 153/75 Pulse 88 Temp 99.2 Resp 16 Wt 184 lb (83.5kg) SpO2 97% Physical Exam: Const: Appears healthy and well developed. No signs of acute distress present. Vitals reviewed per triage. Head/Face: Normocephalic, atraumatic. Facies is symmetric. Eyes: PERRL. ENMT: Tympanic membranes are pearly harry with good light reflex bilaterally. Nares with clear rhinorrhea. Buccal mucosa is moist. Mild erythema in the posterior pharynx without edema of oropharynx orpetechiae of palate. Neck: Supple and symmetric. Palpation reveals no adenopathy. No meningeal signs. Trachea midline. Resp: Lungs are clear to auscultation bilaterally without wheezes, rhonchi, or crackles. Chest expansion was symmetrical without accessory muscle use noted. CV: S1 is normal. S2 is normal. Musculo: Patient moves extremities without pain or limitation. Pulses are equal bilaterally. Skin: Skin is warm and dry. Neuro: Alert and oriented x3. Speech is articulate and fluent. Psych: Mood and affect are appropriate to situation. Respiratory panel is pending self quarantine until these results are back. Rest fluids [id number] cough decongestant Tylenol Motrin as needed fever myalgias Purvi was seen today for cough. Diagnoses and all orders for this visit: Acute cough - RESPIRATORY PANEL BY RAPID PCR (WITH COVID); Future - RESPIRATORY PANEL BY RAPID PCR (WITH COVID) Viral upper respiratory tract infection Kamar Downs PA-C, XANDER Return for FU with PCP in 5 days. ER warnings signs given!. documented in this encounterC[facility] History of Present illness Narrative* Lashon Marcano MD - 03/03/2022 8:00 AM EDT DATE OF SERVICE: 03/03/2022 REASON FOR VISIT: Rash. HISTORY OF PRESENT ILLNESS: This is a 61-year-old female presenting with a rash which is going on for the last 3 weeks. The patient stated that it started after she was raking and cleaning around her fence. She had a rash from poison maryam in the past. For the last 3 weeks, she has been using smrl-rqb-fkuirgm products, but it is not helping. The itching is increasing. No respiratory difficulty. No other problem at this visit. REVIEW OF OTHER SYSTEMS: Normal. PAST MEDICAL HISTORY/FAMILY HISTORY/SOCIAL HISTORY: Reviewed. ALLERGIES: PENICILLIN, CODEINE, SPIRIVA, CAFFEINE. MEDICATION LIST: Reviewed. PHYSICAL EXAMINATION: She is awake, alert, not in distress. No dyspnea. Temperature 97.8, blood pressure 145/75, pulse 110, respirations 19, pulse oximetry 97% on room air. Pain score 0 out of 10. HEENT: Unremarkable. Chest: Clear to auscultate. Heart: Regular rate and rhythm. Examination of the skin: She has multiple areas of urticarial-like rash spread around her trunk and [facility] PATIENT NAME: PURVI ARANA [address] [place] MEDICAL REC #: [id number] [place] [address] [facility] REPORT STATCARE PHYSICIAN both upper and lower extremities. There are no blusters or pustules, no skin excoriation. ASSESSMENT: Plant Contact dermatitis. PLAN: Clinical findings were discussed with the patient in detail. I explained to her this is most likely due to some plants she was exposed to while she was cleaning her fence. I gave her Solu-Medrol 125 mg IM and prescribed her a Medrol Dosepak as directed, 1 pack with no refills, to start tomorrow. She can continue to use Benadryl and use calamine lotion. She should follow up with her doctor for further evaluation and care. Patient understands and agrees. Lashon Marcano MD [id number] [facility] File#: [id number] END OF DOCUMENT / CHANGE LOG FOLLOWS Last Edited By Elec. Signed By Lashon Marcano MD #PAWPR Lashon Marcano MD #PAWPR [facility] PATIENT NAME: PURVI ARANA [address] [place] MEDICAL REC #: [id number] [place] [address] [facility] REPORT STATCARE PHYSICIAN on 03/03/2022 10:29 ET on 03/03/2022 10:29 ET Revision Number - 2 Verified/Reviewed by 03/03/22 1029 [address] [facility] PATIENT NAME: PURVI ARANA Dr. [place] MEDICAL REC #: [id number] [place] [address] [facility] REPORT STATCARE PHYSICIAN documented in this encounterC[facility] Hospital Discharge instructions Patient Education 12/04/2021 21:10:31 Iritis Iritis The iris is the colored part of the eye that controls the size of the pupil. Iritis is an inflammation of the iris. It can be caused by injury to the eye or disease elsewhere in the body. Diseases linked to iritis include Lyme disease, inflammatory bowel disease, and rheumatoid arthritis. Often, nocause is found. Iritis usually develops suddenly in one eye. Symptoms include redness, pain in the eye or brow area, sensitivity to light, and blurred vision. Iritis is treated with eye drops to dilate the pupil and reduce pain. This will cause your vision to be blurred from a few hours up to a week, depending on the medicine used. Steroid drops are typically prescribed to reduce pain from inflammation. Iritis from eye injury usually resolves in 1 to 2 weeks. Iritis from other causes may take several weeks to months to resolve. Home care Use eye drops as prescribed. Wear sunglasses to decrease light sensitivity and discomfort. If your eye is dilated or if you have been given an eye patch, your driving ability will be affected. Don't drive until the blurred vision wears off and you no longer need an eye patch. You may use acetaminophen or ibuprofen to control pain, unless another medicine was prescribed. (Note: If you have chronic liver or kidney disease, or if you have ever had a stomach ulcer or gastrointestinal bleeding, talk with your doctor before using these medicines.) Follow-up care Follow up with your healthcare provider, or as advised. When to seek medical advice Contact your healthcare provider right away if any of these occur: Symptoms don t start to improve after 1 week Iritis from eye injury causes symptoms for more than 2 weeks Pain increases Your eye becomes red You lose some or all of your vision [id number] [employer]. [address] [place] [address]. All rights reserved. This information is not intended as a substitute for professional medical care. Always follow yourhealthcare professional's instructions. Follow Up Care 12/04/2021 18:38:52 With:[facility] Address: [address] [place], [place] [id number]- Business (1) When:1-2 days Comments:Take Tylenol ibuprofen for pain. Oxycodone for breakthrough pain. Be sure to see eye doctor tomorrow. Tell them you're seen in the ER and told to be seen within 24 hours. Return if worsening or concerning symptoms. With:KYLE LOGAN Address:Unknown When:2-4 days [facility] Evaluation + Plan note Future Appointments Appointment Date:12/30/2021 03:15:00 PM Scheduled Provider:KYLE LOGAN DO Location:[facility] Appointment Type: OV Future Scheduled Tests Radiology* CT Thorax w/o Contrast 08/31/21 [facility] Evaluation + Plan note Future Appointments Appointment Date:12/30/2021 03:15:00 PM Scheduled Provider:KYLE LOGAN DO Location:[facility] Appointment Type:PC OV Diagnostic Tests Pending * HPV Screen, DNA Probe 09/19/21 Future Scheduled Tests Laboratory* Pathology Breakfast Hostess Request 09/19/21 Radiology* CT Thorax w/o Contrast 08/31/21 [facility] Evaluation + Plan note Future Appointments Appointment Date:11/30/2021 03:45:00 PM Scheduled Provider:KYLE LOGAN DO Location:[facility] Appointment Type:PC OV Appointment Date:12/30/2021 03:15:00 PM Scheduled Provider:KYLE LOGAN DO Location:[facility] Appointment Type:PC OV Future Scheduled Tests Laboratory* Pathology Breakfast Hostess Request 09/19/21 Radiology* CT Thorax w/o Contrast 08/31/21 [facility] Evaluation + Plan note Future Appointments Appointment Date:12/30/2021 03:00:00 PM Scheduled Provider:KYLE LOGAN DO Location:[facility] Appointment Type:PC OV Future Scheduled Tests Laboratory* Pathology Breakfast Hostess Request 09/19/21 Radiology* CT Thorax w/o Contrast 08/31/21 [facility] Evaluation + Plan note Future Appointments Appointment Date:08/16/2022 11:00:00 AM Scheduled Provider:KYLE LOGAN DO Location:[facility] Appointment Type:PC OV Future Scheduled Tests Laboratory* Pathology Breakfast Hostess Request 09/19/21 Radiology* CT Thorax w/o Contrast 08/31/21 [facility] Evaluation + Plan note Future Appointments Appointment Date:10/05/2022 02:00:00 PM Scheduled Provider:JACINDA HOOVER Location:[facility] Appointment Type:PC Acute Appointment Date:02/07/2023 11:00:00 AM Scheduled Provider:KYLE LOGAN DO Location:[facility] Appointment Type:PC OV [facility] evaluation + Plan note Future Appointments Appointment Date:02/07/2023 11:00:00 AM Scheduled Provider:KYLE LOGAN DO Location:[facility] Appointment Type:PC OV Future Scheduled Tests Radiology* CT Abdomen and Pelvis w/ contrast 10/05/22 [facility] Evaluation + Plan note Future Appointments Appointment Date:08/08/2023 11:00:00 AM Scheduled Provider:KYLE LOGAN DO Location:[facility] Appointment Type:PC OV Follow Up [facility] Evaluation + Plan note Future Appointments Appointment Date:03/15/2023 07:30:00 AM Scheduled Provider: Location:[facility] Appointment Type:US Abdomen LTD/ Renal Appointment Date:08/08/2023 11:00:00 AM Scheduled Provider:KYLE LOGAN DO Location:[facility] Appointment Type:PC OV Follow Up Future Scheduled Tests Radiology* US Abdomen LTD/ Renal 03/15/23 [facility] Evaluation + Plan note Future Appointments Appointment Date:05/14/2024 10:30:00 AM Scheduled Provider:KYLE LOGAN DO Location:[facility] Appointment Type:PC Wellness Annual Appointment Date:08/13/2024 09:30:00 AM Scheduled Provider:KYLE LOGAN DO Location:[facility] Appointment Type:PC OV [facility] Evaluation + Plan note Future Appointments Appointment Date:05/22/2024 09:00:00 AM Scheduled Provider:TANO WATTS Location:[facility] Appointment Type:PC OV ED Follow Up Appointment Date:08/13/2024 09:30:00 AM Scheduled Provider:KYLE LOGAN DO Location:[facility] Appointment Type:PC OV Future Scheduled Tests Radiology* MA Mammo Screening Bilateral w/ Nick 05/14/24 * BD Bone Density DEXA Axial Skeleton 05/14/24 * US Renal 05/14/24 [facility] evaluation + Plan note Future Appointments Appointment Date:02/11/2025 10:30:00 AM Scheduled Provider:KYLE LOGAN DO Location:[facility] Appointment Type:PC OV [facility] Evaluation + Plan note Future Appointments Appointment Date:04/08/2025 10:00:00 AM Scheduled Provider:EDUARDO DOE PA-C Location:[facility] Appointment Type:OSM OV Follow Up Appointment Date:05/27/2025 01:30:00 PM Scheduled Provider:STEFAN MALIK DO Location:[facility] Appointment Type:PC Wellness Annual Diagnostic Tests Pending * Lipoprotein (a) 03/25/25 * Apolipoprotein B 03/25/25 [facility] Evaluation + Plan note Future Appointments Appointment Date:04/08/2025 10:00:00 AM Scheduled Provider:EDUARDO DOE PA-C Location:[facility] Appointment Type:OSM OV Follow Up Appointment Date:04/24/2025 02:15:00 PM Scheduled Provider:STEFAN MALIK DO Location:[facility] Appointment Type:PC OV Appointment Date:05/27/2025 01:30:00 PM Scheduled Provider:STEFAN MALIK DO Location:[facility] Appointment Type:PC Wellness Annual Future Scheduled Tests Radiology* XR Chest 2 Views (PA & Lateral) 04/07/25 [facility] Evaluation + Plan note Future Appointments Appointment Date:05/27/2025 01:30:00 PM Scheduled Provider:STEFAN MALIK DO Location:[facility] Appointment Type:PC Wellness Annual Future Scheduled Tests Radiology* XR Chest 2 Views (PA & Lateral) 04/07/25 [facility] Evaluation + Plan note Future Appointments Appointment Date:07/17/2025 11:30:00 AM Scheduled Provider: Location:[facility] Appointment Type:MA Mammogram Screening Bilateral w/ Nick Appointment Date:08/05/2025 01:30:00 PM Scheduled Provider:STEFAN MALIK DO Location:[facility] Appointment Type:PC OV Future Scheduled Tests Laboratory* Basic Metabolic Panel 05/27/25 * A1C Hemoglobin 05/27/25 Radiology* MA Mammo Screening Bilateral w/ Nick 07/17/25 * XR Chest 2 Views (PA & Lateral) 04/07/25 [facility] Evaluation + Plan note Future Appointments Appointment Date:08/05/2025 01:30:00 PM Scheduled Provider:STEFAN MALIK DO Location:[facility] Appointment Type:PC OV Future Scheduled Tests Radiology* XR Chest 2 Views (PA & Lateral) 04/07/25 [facility] noteNo assessment information [facility] Work Phone: Evaluopvqe note* Diagnosis Acute cough- Primary Viral upper respiratory tract infection Acute upper respiratory infections of unspecified site documented in this encounter [facility] note* Diagnosis Viral illness- Primary Unspecified viral infection, in conditions classified elsewhere and of unspecified site Acute non-recurrent frontal sinusitis documented in this encounter [facility] note* Diagnosis Muscle spasm of right shoulder- Primary Spasm of muscle documented in this encounter [facility] note* Diagnosis Onset Date Resolution Status Admit Date Asthma acute July 01, 2025 10:53am Lung nodule acute June 10:53am Nicotine dependence, cigarettes, uncomplicated acute Septem 2024 10:53am Obesity acute July 01, 2025 10:53am [place] (obstructive sleep apnea) acute July 01, 2025 10:53am [facility] Work Phone: Hospital course Narrative No data available for this section [facility] Discharge instructions No data available for this section [facility] Progress note No data available for this section [facility] Reason for referral (narrative)No reason for referral [facility] Work Phone: Summary Purpose Family History No Family History Records Found No data available for this section No data available for this section No data available for this section No Family History Records FoundNo Family History Records Found No data available for this section No data available for this section No data available for this section No data available for this section No Family History Records Found No data available for this section No data available for this section No data available for this section No data available for this section No data available for this section No Family History Records FoundNo Family History Records Found Advance Directives No Advanced Directives Records Found Advance Directive Response Recorded Date/ Time regarding your healthcare decisions? YES March 03, 2022 8:00am [facility]? NO March 03 8:00am Health Concerns Infection Onset Date Last Indicated Resolved Time COVID-19 Rule-Out 09/25/2022 09/25/2022 Respiratory Rule-Out 09/25/2022 09/25/2022 Chief Complaint and Reason for Visit Chief Complaint Admit Date Asthma/COPD July 01, 2025 10:53am Reason for Visit Admit Date Asthma July 01, 2025 10:53am Lung nodule July 01, 2025 10:53am Nicotine dependence, cigarettes, uncompl icated July 01, 2025 10:53am Obesity July 01, 2025 10:53am [place] (obstructive sleep apnea) July 01, 2025 10:53am Chief Complaint Admit Date Asthma/COPD July 01, 2025 10:53am INT LABS July 01, 2025 11:57am E66.9 - Obesity, unspecified July 072024 11:01am E66.9 - Obesity, unspecified June 292024 8:20am Additional Source Comments Care Team (unrecognized sect ion and content) Booking Manager Relationship Specialty Start Date End Date Kyle Logan DO [address] [place] [address] PCP - General Family Medicine 09/25/22 Booking Manager Relationship Specialty Start Date End Date Kyle Logan DO [address] [place] [id number] PCP - General Family Medicine 09/25/22 Booking Manager Relationship Specialty Start Date End Date Kyle Logan DO [address] [place] [id number] PCP - General Family Medicine 09/25/22 Booking Manager Relationship Specialty Start Date End Date Kyle Logan DO [address] [place] [id number] PCP - General Family Medicine 09/25/22 Team Status: Active Member Role/Relationship Status Dates Dr. Tona Jackson , DO Family Provider Active Dr. Stefan Malik DO Primary Care Provider Active Team Status: Inactive Member Role/Relationship Status Dates Dr. Jake Grimes DO Attending Provider Active S tart: July 01, 2025 End: July 01, 2025 Dr. Stefan Malik DO Primary Care Provider Active Start: July 01, 2025 End: July 01, 2025 Dr. Stefan Malik DO Referring Provider Active Start: July 01, 2025 End: July 01, 2025 Team Status: Active Member Role/Relationship Status Dates Dr. Stefan Malik DO Primary Care Provider Active Team Status: Inactive Member Role/Relationship Status Dates Dr. Stefan Malik DO Primary Care Provider Active Start: July 01, 2025 End: July 01, 2025 Dr. Jake Grimes DO Attending Provider Active S tart: July 01, 2025 End: July 01, 2025 Dr. Jake Grimes DO Referring Provider Active S tart: July 01, 2025 End: July 01, 2025 Team Status: Active Member Role/Relationship Status Dates Dr. Stefan Malik DO Primary Care Provider Active Start: July 07, 2025 Dr. Jake Grimes DO Attending Provider Active S tart: July 07, 2025 Dr. Jake Grimes DO Referring Provider Active S tart: July 07, 2025 Team Status: Active Member Role/Relationship Status Dates Dr. Stefan Malik DO Primary Care Provider Active Start: July 09, 2025 Dr. Jake Grimes DO Attending Provider Active S tart: July 09, 2025 Dr. Jake Grimes DO Referring Provider Active S tart: July 09, 2025 Dr. Jake Grimes DO Other Provider Active Start : July 09, 2025 Source Comments (unrecognize d section and content) In the event this informatio n is protected by the Federal Confidentiality of Alcohol and Drug Abuse Patient Records regulations: The Federal rules restrict any use of the information to criminally investigate or prosecute any alcohol or drug abuse patient.[facility] Hospital[facility] the event this information is protected by the Federal Confidentiality of Alcohol and Drug Abuse Patient Records regulations: The Federal rules restrict any use of the information to criminally investigate or prosecute any alcohol or drug abuse patient.[facility] the event this information is protected by the Federal Confidentiality of Alcohol and Drug Abuse Patient Records regulations: The Federal rules restrict any use of the information to criminally investigate or prosecute any alcohol or drug abuse patient.[facility] the event this information is protected by the Federal Confidentiality of Alcohol and Drug Abuse Patient Records regulations: The Federal rules restrict any use of the information to criminally investigate or prosecute any alcohol or drug abuse patient.[facility] the event this information is protected by the Federal Confidentiality of Alcohol and Drug Abuse Patient Records regulations: The Federal rules restrict any use of the information to criminally investigate or prosecute any alcohol or drug abuse patient.[facility] the event this information is protected by the Federal Confidentiality of Alcohol and Drug Abuse Patient Records regulations: The Federal rules restrict any use of the information to criminally investigate or prosecute any alcohol or drug abuse patient.[facility] INFORMATION SOURCE (unrecogn ized section and content) DATE CREATED AUTHOR 03/04/2022 [facility] DATE CREATED AUTHOR AUTHOR'S ORGANIZ ATION 06/21/2024 [facility] ([place]) DATE CREATED AUTHOR AUTHOR'S ORGANIZ ATION 11/25/2024 [facility] DATE CREATED AUTHOR AUTHOR'S ORGANIZ ATION 04/02/2025 [facility] DATE CREATED AUTHOR AUTHOR'S ORGANIZ ATION 07/20/2025 [facility] DATE CREATED AUTHOR AUTHOR'S ORGANIZ ATION 07/23/2025 [facility] Goals (unrecognized section and content) Goals may be documented in a n alternate section Reason for Visit (unrecogniz ed section and content) Reason Comments Cough Congestion body ache s Reason Comments Results Respo negative Reason Comments Cough Sore throat started fri with a headache Reason Comments Pain Patient stated when she woke up this morning, she felt pain on Right side radiating down right arm and right side of neck . Did state that she had a fall outside at home on 11/11 Care Team (unrecognized sect ion and content) Care Team Personnel Name: KYLE LOGAN DO Position: P4 Physician - Primary Care Member Role: Primary Care Physician Address: Address: [address] [place] [id number] [place] [address] Care Team Related Persons Name: MYLES BUSCH Name: MYLES BUSCH Name: MADELAINE ARANA Name: MADELAINE ARANA Address: Home [address] [place], [place] [id number] Care Team Personnel Name: KYLE LOGAN Position: P4 Physician - Primary Care Member Role: Primary Care Physician Address: Address: [address] [place] [address] Care Team Related Persons Name: MYLES BUSCH Name: MYLES BUSCH Name: LYNN ARANAIS Name: SUMIT MADELAINE Mobley Address: Home [address] [place], [place] [id number] US FOR RECORDS PERTAINING TO PATIENTS WHO ARE OR HAVE BEEN ENROLLED IN A CHEMICAL DEPENDENCY/SUBSTANCEABUSE PROGRAM, SOME INFORMATION MAY BE OMITTED. This clinical summary was aggregated from multiple sources. Caution should be exercised in using it in the provision of clinical care. This summary normalizes information from multiple sources, and as a consequence, information in this document may materially change the coding, format and clinical context of patient data. In addition, data may be omitted in some cases. CLINICAL DECISIONS SHOULD BE BASED ON THE PRIMARY CLINICAL RECORDS. [employer] provides no warranty or guarantee of the accuracy or completeness of information in this document.
== END | disposition home or self-care (01) ==
LOC: MTRAD 08:26
PROVIDERS: Referring Provider Psychiatry & Neurology Neurology; Visit Provider Psychiatry & Neurology Neurology
DX: M25.551 Pain in right hip (principal)
CPT/HCPCS: 73502

== ENCOUNTER → 2025-08-13 | Outpatient (CLI) | payer MEDICAID, SELFPAY | END | disposition home or self-care (01) | LOC: SL 10:57 | PROVIDERS: Referring Provider Nurse Practitioner Family; Visit Provider Nurse Practitioner Family | DX: G47.33 Obstructive sleep apnea (adult) (pediatric) (principal) | CPT/HCPCS: 94762 ×2 ==

== ENCOUNTER → 2025-08-19 | Outpatient (CLI) | payer MEDICAID, SELFPAY | END | disposition home or self-care (01) | LOC: SL 10:55 | PROVIDERS: Referring Provider Nurse Practitioner Family; Visit Provider Nurse Practitioner Family | DX: G47.33 Obstructive sleep apnea (adult) (pediatric) (principal) | CPT/HCPCS: 94762 ==

== ENCOUNTER → 2025-09-09 | Outpatient (CLI) | payer MEDICAID, SELFPAY ==
--- NOTE | 2025-09-09 13:37 | NEURO ---
NCS and/or EMG Patient Report Ordering Doctor: Selvin Meek DATE OF SERVICE: 09/09/25 Purvi presents with complaints of numbness and tingling in both legs, primarily below the knees. Electrodiagnostic findings: Peroneal motor nerve demonstrates normal distal latency bilaterally. There is normal motor amplitude with reduced conduction velocity. Reduced tibial motor conduction velocity bilaterally. Reduced right tibial motor amplitude. Prolonged tibial and peroneal F–waves. H reflex prolonged bilaterally. Prolonged sural latency bilaterally. Absent right superficial peroneal response. Needle EMG testing was performed the lower limbs. Motor units of increased amplitude and duration noted bilaterally in the tibialis anterior. Electrodiagnostic impression: This is an abnormal study in the lower limbs. 1. Electrodiagnostic findings suggestive of peripheral polyneuropathy, with motor and sensory nerve involvement. There is evidence of both demyelination and axonal loss. 2. No electrodiagnostic evidence is noted for lumbosacral radiculopathy. Multi Select Codes Neurology Neurology Interp Codes: 68412-25 Musc test done w/n test comp (interp) (2) and 09395-94 Nrv cndj test 9-10 studies (interp)
== END | disposition home or self-care (01) ==
LOC: PSN 11:57
PROVIDERS: Referring Provider Psychiatry & Neurology Neurology; Visit Provider Psychiatry & Neurology Neurology
DX: M54.16 Radiculopathy, lumbar region (principal); M79.671 Pain in right foot; M79.672 Pain in left foot; G62.9 Polyneuropathy, unspecified
CPT/HCPCS: 95886; 95911